=== PATIENT | female | born 1935 | race Caucasian/White ===

== ENCOUNTER 2017-02-05 08:01 | Emergency (ER) | payer MEDICARE, OTHER ==
--- NOTE | 2017-02-05 08:16 | ERPHSYRPT ---
- History of Present Illness Time Seen by Provider: 02/05/17 08:16 Source: patient Exam Limitations: no limitations Patient Subjective Stated Complaint: PT REPORTS WAS DOING YARD WORK YESTERDAY- STARTED HAVING BACK PAIN RADIATING TO CHEST-REPORTS BEGAN VOMITING Triage Nursing Assessment: PT PINK WARM ET [id number] QUESTIONS CORRECTLY-RESP NONLABORED-CAP REFILL 3 SECONDS-RIGHT RADIAL PULSE REGULAR ET STRONG Physician History: The patient is an 81-year-old female with her daughter who initially presents with the complaint of back pain that is radiating up around her chest since yesterday evening. Upon further questioning the patient was pulling weeds on Friday and then had back pain on Friday. She has a past medical history of fractures in her vertebrae from a fall. Friday evening her daughters gave her 5 mg Flexeril that helped her back pain. She quit taking the Flexeril. Last night which was Friday night she had nausea vomiting and diarrhea. She states she vomited several times and had several rounds of loose watery stools. Her back is still hurting. Her abdomen hurts in the epigastric region. Her head is hurting as well. Her past medical history is significant for hypertension, anxiety, depression, leg pain, and GERD. Her past surgical history is significant for hysterectomy and cholecystectomy. Timing/Duration: day(s) Method of Injury: bending, lifting Quality: aching Back Pain Location: T-spine, paraspinous muscles Severity of Pain-Max: moderate Severity of Pain-Current: moderate Modifying Factors: Improves With: pain medication Associated Symptoms: nausea, vomiting, other (diarrhea) Previous symptoms: different symptoms Allergies/Adverse Reactions: oxycodone Allergy (Mild, Verified 02/05/17 08:14) Hives codeine Adverse Reaction (Verified 02/05/17 08:14) morphine Adverse Reaction (Verified 02/05/17 08:14) Home Medications: Metoprolol Succinate 50 mg [Toprol Xl 50 MG] 50 mg PO DAILY 09/28/13 [ History] Omeprazole 20 MG [Prilosec 20 mg] 40 mg PO DAILY 09/28/13 [History] Acetaminophen [Tylenol Extra Strength] 1,000 mg PO Q6HPRN PRN 07/25/14 [History] Escitalopram Oxalate [Lexapro] 10 mg PO DAILY 07/25/14 [History] Cholecalciferol (Vitamin D3) [D3-2000] 5,000 iu PO DAILY 03/31/15 [History] Gabapentin 100 mg PO HS PRN 03/31/15 [History] Hx Tetanus, Diphtheria Vaccination/Date Given: Yes Hx Influenza Vaccination/Date Given: No Hx Pneumococcal Vaccination/Date Given: No Immunizations Up to Date: Yes - Review of Systems Constitutional: No Fever, No Chills Eyes: No Symptoms Ears, Nose, & Throat: No Symptoms Respiratory: No Cough, No Dyspnea Cardiac: Chest Pain Abdominal/Gastrointestinal: Abdominal Pain, Nausea, Vomiting, Diarrhea Genitourinary Symptoms: No Dysuria Musculoskeletal: Back Pain Skin: No Rash Neurological: No Dizziness, No Focal Weakness, No Sensory Changes Psychological: No Symptoms Endocrine: No Symptoms Hematologic/Lymphatic: No Symptoms Immunological/Allergic: No Symptoms All Other Systems: Reviewed and Negative - Past Medical History Pertinent Past Medical History: Yes Neurological History: Stroke ENT History: No Pertinent History Cardiac History: Arrhythmia, Hypertension Respiratory History: CHF, COPD, Pneumonia, Pulmonary Embolism Endocrine Medical History: No Pertinent History Musculoskeletal History: No Pertinent History, Osteoarthritis GI Medical History: GERD History: No Pertinent History Psycho-Social History: Depression Female Reproductive Disorders: No Pertinent History Other Medical History: 'SPOT ON LT LUNG',. prolapse heart valve. 3 BROKEN PLACES IN SPINE. esophageal hernia - Past Surgical History Past Surgical History: Yes Neuro Surgical History: No Pertinent History Cardiac: Cardiac Catheterization Respiratory: No Pertinent History Gastrointestinal: Appendectomy, Cholecystectomy Genitourinary: No Pertinent History Musculoskeletal: No Pertinent History Female Surgical History: Hysterectomy - Social History Smoking Status: Never smoker Exposure to second hand smoke: No Drug Use: none Patient Lives Alone: No Significant Family History: heart disease, hypertension - Nursing Vital Signs Nursing Vital Signs: Initial Vital Signs Temperature 99.4 F Temperature Source Oral Pulse Rate [] 95 Pulse Rate 86 Respiratory Rate 16 Blood Pressure [] 108/47 Pain Intensity 4 - Physical Exam General Appearance: moderate distress Eye Exam: PERRL/EOMI, eyes nml inspection Ears, Nose, Throat Exam: normal ENT inspection Neck Exam: normal inspection, non-tender, supple, full range of motion, No meningismus, No midline tenderness Respiratory Exam: normal breath sounds, chest tenderness, lungs clear, No respiratory distress Cardiovascular Exam: regular rate/rhythm, normal heart sounds Gastrointestinal Exam: tenderness Pelvic Exam: not done Rectal Exam: not done Back Exam: muscle spasm Extremity Exam: normal inspection, normal range of motion, No calf tenderness, No pedal edema Neurologic Exam: alert, oriented x 3, cooperative, veterinary manager II-XII nml as tested, normal mood/affect, nml station & gait, sensation nml, No motor deficits Skin Exam: normal color, warm, dry, No rash SpO2 Interpretation: normal SpO2: 94 Oxygen Delivery: Room Air - Course EKG Interpreted by Me: RATE, Sinus Rhythm, NORMAL AXIS, NORMAL ST-T - Radiology Exams Chest X-ray Interpretation: Teleradiologist Report, Negative (No acute, large hiatal hernia per DR Alan) Abdomen X-ray Interpretation: Teleradiologist Report, Negative (unremarkable bowel gas pattern per Dr Alan) Ordered Tests: Active Orders 24 hr Category Date Time Status EKG-ER Only STAT Care 02/05/17 08:37 Active IV Insertion STAT Care 02/05/17 08:37 Active CHEST 2 VIEWS (PA AND LAT) Stat Exams 02/05/17 08:38 Completed KUB Stat Exams 02/05/17 08:38 Completed CBC W DIFF Stat Lab 02/05/17 08:20 Completed CMP Stat Lab 02/05/17 08:20 Completed LIPASE Stat Lab 02/05/17 08:20 Completed TROPONIN Stat Lab 02/05/17 08:20 Completed UA W/ MICROSCOPIC Stat Lab 02/05/17 12:00 Results Medication Summary Discontinued Medications Generic Name Dose Route Start Last Admin Trade Name Freq PRN Reason Stop Dose Admin Diazepam 5 mg 02/05/17 08:47 02/05/17 08:53 Valium 10 Mg/2 Ml Syringe IV 02/05/17 08:48 5 mg STAT ONE Administration Diazepam Confirm 02/05/17 08:50 Valium 10 Mg/2 Ml Syringe Administered 02/05/17 08:51 Dose 10 mg .ROUTE .STK-MED ONE Sodium Chloride 1,000 mls @ 999 mls/hr 02/05/17 08:37 02/05/17 08:48 Sodium Chloride 0.9% 1000 Ml IV 02/05/17 09:37 999 mls/hr .Q1H1M STA Administration Sodium Chloride Confirm 02/05/17 08:45 Sodium Chloride 0.9% 1000 Ml Administered 02/05/17 08:46 Dose 1,000 mls @ ud .ROUTE .STK-MED ONE Nalbuphine HCl 10 mg 02/05/17 10:13 02/05/17 10:28 Nubain 10 Mg/Ml IV 02/05/17 10:14 10 mg STAT ONE Administration Nalbuphine HCl Confirm 02/05/17 10:24 Nubain 10 Mg/Ml Administered 02/05/17 10:25 Dose 10 mg .ROUTE .STK-MED ONE Ondansetron HCl 4 mg 02/05/17 08:37 02/05/17 08:48 Zofran 4 Mg/2 Ml Vial IV 02/05/17 08:38 4 mg STAT ONE Administration Ondansetron HCl Confirm 02/05/17 08:45 Zofran 4 Mg/2 Ml Vial Administered 02/05/17 08:46 Dose 4 mg .ROUTE .STK-MED ONE Lab/Rad Data: Laboratory Result Diagrams 02/05/17 08:20 02/05/17 08:20 Laboratory Results 02/05/17 02/05/17 02/05/17 Range/Units 12:00 08:20 08:20 WBC 10.0 (4.0-10.5) K/mm3 RBC 3.47 L (4.1-5.4) M/mm3 Hgb 10.8 L (12.0-16.0) gm/dl Hct 33.9 L (35-47) % MCV 97.7 (78-100) fl MCH 31.1 (26-32) pg MCHC 31.9 L (32-36) g/dl RDW 14.0 (11.5-14.0) % Plt Count 283 (150-450) K/mm3 MPV 9.2 (6-9.5) fl Gran % 64.6 (36.0-66.0) % Lymphocytes % 20.5 L (24.0-44.0) % Monocytes % 13.9 H (0.0-12.0) % Eosinophils % 0.9 (0.00-5.0) % Basophils % 0.1 (0.0-0.4) % Basophils # 0.01 (0-0.4) Sodium 138 (136-145) mEq/L Potassium 4.2 (3.5-5.1) mEq/L Chloride 104 (98-107) mEq/L Carbon Dioxide 26.0 (21-32) mEq/L Anion Gap 12.4 (5-15) MEQ/L BUN 18 (9-20) mg/dL Creatinine 1.32 H (0.55-1.30) mg/dl Estimated GFR 41 ML/MIN Glucose 129 H (70-110) MG/DL Calcium 9.5 (8.5-10.1) mg/dL Total Bilirubin 0.60 (0.2-1.0) mg/dL AST 32 (15-37) U/L ALT 28 (12-78) U/L Alkaline Phosphatase 90 (46-116) U/L Troponin I < 0.017 (0.000-0.056) ng/ml Serum Total Protein 7.5 (6.4-8.2) gm/dL Albumin 3.4 (3.4-5.0) g/dL Lipase 151 (73-393) U/L Ur Collection Type CLEAN CATCH Urine Color YELLOW (YELLOW) Urine Appearance CLEAR (CLEAR) Urine pH 5.5 (5-6) Ur Specific [place] 1.020 (1.005-1.025) Urine Protein NEGATIVE (Negative) Urine Glucose (UA) NEGATIVE (NEGATIVE) mg/dL Urine Ketones NEGATIVE (NEGATIVE) Urine Nitrite NEGATIVE (NEGATIVE) Urine Bilirubin NEGATIVE (NEGATIVE) Urine Urobilinogen 0.2 (0-1) mg/dL Urine WBC (Auto) NEGATIVE (NEGATIVE) Urine RBC (Auto) TRACE-INTACT (0-5) Gume/ul Specimen Received 0545 1200 - Progress Progress: improved Progress Note: 02/05/17 11:18 After valium 5 mg and nubain 10 mg IV, pt is feeling better. Counseled pt/family regarding: lab results, diagnosis, rad results - Departure Time of Disposition: 12:31 Departure Disposition: Home Clinical Impression: Back pain, Muscle spasm Condition: Stable Critical Care Time: No Additional Instructions: You have back and chest pain that is result of straining your back muscles and chest muscles from gardening a few days ago You were given Valium 5 mg and Nubain 10 mg IV in the ER. I want you to rest for a couple of days. Take Flexeril 5-10 mg every 8 hours as needed for pain. Follow-up tomorrow with your primary care doctor if the condition has not improved significantly.
[2017-02-05] MEDS ORDERED: Zofran 4 MG/2 ML VIAL IV ONE (08:37)
[2017-02-05] MEDS ORDERED: Sodium Chloride 0.9% 1000 ML 1,000 ML IV STA (08:37)
[2017-02-05] MEDS ORDERED: Zofran 4 MG/2 ML VIAL ONE (08:45)
[2017-02-05] MEDS ORDERED: Sodium Chloride 0.9% 1000 ML 1,000 ML ONE (08:45)
[2017-02-05] MEDS ORDERED: VALIUM 10 MG/2 ML SYRINGE IV ONE (08:47)
[2017-02-05 08:48] LABS: BASOPHIL % 0.1 % (0.0-0.4); Eosinophil % 0.9 % (0.00-5.0); Granulocytes % 64.6 % (36.0-66.0); Lymphocytes % 20.5 % (24.0-44.0); Mean Cell Volume 97.7 fl (78-100); Mean Corpuscular Hemoglobin 31.1 pg (26-32); Mean Platelet Volume 9.2 fl (6-9.5); Monocytes % 13.9 % (0.0-12.0); Platelet Count 283 K/mm3 (150-450); Red Blood Count 3.47 M/mm3 (4.1-5.4)
[2017-02-05] MEDS ORDERED: VALIUM 10 MG/2 ML SYRINGE ONE (08:50)
[2017-02-05 09:01] LABS: ALBUMIN 3.4 g/dL (3.4-5.0); ALKALINE PHOSPHATASE 90 U/L (46-116); ANION GAP 12.4 MEQ/L (5-15); BLOOD UREA NITROGEN 18 mg/dL (9-20); CHLORIDE 104 mEq/L (98-107); Glucose 129 MG/DL (70-110); LIPASE 151 U/L (73-393); Potassium 4.2 mEq/L (3.5-5.1); SGOT/AST 32 U/L (15-37); SGPT/ALT 28 U/L (12-78); SODIUM 138 mEq/L (136-145); TROPONIN < 0.017 ng/ml (0.000-0.056); Total Protein 7.5 gm/dL (6.4-8.2)
--- NOTE | 2017-02-05 09:58 | XRAY ---
Exam: AP upright and lateral sitting chest films on the cart from 02/05/2017. Comparison: Two-view chest from 12/09/2015. Indication: Chest pain, nausea, vomiting, diarrhea, history of prior cholecystectomy and hysterectomy. Findings: Upright AP and lateral images were obtained. The transverse heart size appears slightly enlarged. Atherosclerotic vascular calcification of the aortic knob and mild tortuosity of the thoracic aorta are seen. I note no significant central vascular congestion or pleural effusions. I see some chronic pleural-parenchymal scarring within the lower two thirds of the right lung and at the lateral left lung base. A large retrocardiac hiatal hernia is seen. There is no pneumothorax. No definite acute air space infiltrates are seen. The bones are demineralized. There is a moderate upper thoracic anterior wedge fracture deformity which I believe is unchanged. There is also a moderate anterior wedge compression fracture deformity near the thoracolumbar junction on the lateral radiograph which may be slightly more pronounced as compared to 12/09/2015. No other new compression fracture deformities are seen. Some arthritic changes are seen within both shoulders. Impression: 1. Large retrocardiac hiatal hernia. This is larger than that seen on 12/09/2015. 2. Slight cardiomegaly without evidence of acute cardiac decompensation/i.e. CHF. 3. Mild chronic pleural-parenchymal scarring within the lower two thirds of the right lung and lateral left lung base. No acute airspace infiltrates are seen. 4. Significant bone demineralization with at least a couple compression fracture deformities, as noted above.
--- NOTE | 2017-02-05 10:01 | XRAY ---
Exam: Supine film of the abdomen from 02/05/2017. Comparison: None. Indication: Chest pain, nausea and vomiting, diarrhea, history of prior cholecystectomy and hysterectomy. Findings: 2 supine images of the abdomen were obtained. The bowel gas pattern is unremarkable suggesting neither bowel obstruction or significant ileus. No hepatosplenomegaly is seen. Surgical clips consistent with prior cholecystectomy are seen within the right upper quadrant. The psoas muscle margins are well seen bilaterally. Some scattered small calcified granulomas are seen within the lower pelvis, more numerous on the right than left. There are also a couple small round calcifications just above the right sacroiliac joint. These likely represent calcified granulomas or phleboliths. Some minimal vascular calcification is seen within the mid to distal abdominal aorta overlying the upper left margin of the L4 vertebral body. A definite aneurysm is not seen. Bone demineralization and a slight rotary levoscoliosis centered at L3-L4 is seen. I believe there is a transitional vertebra at the lumbosacral junction with pseudoarticulation on the left. Mild osteoarthritic spurring of the right acetabulum is seen. Hip joint spaces reveal only minimal narrowing. Several small calcium rimmed densities are seen superior to the greater trochanter on the left which may reflect granulomas or phleboliths. Impression: 1. Unremarkable bowel gas pattern. There is no evidence of bowel obstruction or significant ileus. 2. Status post cholecystectomy. 3. Other incidental findings as discussed above.
[2017-02-05] MEDS ORDERED: Nubain 10 MG/ML IV ONE (10:13)
[2017-02-05] MEDS ORDERED: Nubain 10 MG/ML ONE (10:24)
[2017-02-05 12:10] VITALS: BP 108/47; PULSE 86
[2017-02-05 12:11] LABS: COMPLETE URINE MICROSCOPIC? YES; Collection Type CLEAN CATCH; Ph 5.5 (5-6)
[2017-02-05 12:34] VITALS: O2SAT 94
[2017-02-05 12:59] LABS: Bacteria RARE /HPF (NEGATIVE); Epithelial Cells FEW /HPF (FEW); WBC 0-2 /HPF (0-5); Yeast FEW /HPF (NEGATIVE)
[2017-02-05 15:51] LABS: ADD URINE CULTURE? NO (NO)
== END 2017-02-05 12:53 | disposition home or self-care (01) ==
LOC: ED 08:01
DX: M54.9 Dorsalgia, unspecified (principal); M62.830 Muscle spasm of back; Y93.H2 Activity, gardening and landscaping; R10.13 Epigastric pain; R11.2 Nausea with vomiting, unspecified; R19.7 Diarrhea, unspecified; I10 Essential (primary) hypertension; I50.9 Heart failure, unspecified; J44.9 Chronic obstructive pulmonary disease, unspecified; Z86.711 Personal history of pulmonary embolism
CPT/HCPCS: 36415; 71020; 74000; 80053; 81000; 83690; 84484; 85025; 93005; 93041; 96374; 96375; 99284; J2300; J2405; J3360

== ENCOUNTER 2018-05-27 12:05 | Observation (INO) | payer MEDICARE, OTHER ==
[2018-05-27 13:54] LABS: BASOPHIL % 0.2 % (0.0-0.4); Basophil (Absolute #) 0.01 (0-0.4); Eosinophil % 1.2 % (0.00-5.0); Eosinophil (Absolute #) 0.08 (0-0.5); Granulocytes % 57.1 % (36.0-66.0); Hematocrit 33.2 % (35-47); Hemoglobin 10.6 gm/dl (12.0-16.0); Lymphocyte (Absolute #) 2.12 (1.0-4.6); Lymphocytes % 32.8 % (24.0-44.0); Mean Corpuscular Hemoglobin 31.9 pg (26-32); Mean Corpuscular Hgb Concent. 31.9 g/dl (32-36); Mean Platelet Volume 9.2 fl (6-9.5); Monocyte (Absolute #) 0.56 (0.0-1.3); Monocytes % 8.7 % (0.0-12.0); Platelet Count 248 K/mm3 (150-450); Red Blood Count 3.32 M/mm3 (4.1-5.4); Red Cell Distribution Width 13.6 % (11.5-14.0); White Blood Count 6.5 K/mm3 (4.0-10.5)
[2018-05-27] MEDS: Sodium Chloride 0.9% 1000 ML 1,000 ML IV SCH (13:54)
--- NOTE | 2018-05-27 14:06 | XRAY ---
Indication: Abdomen/pelvic pain. Multiple contiguous axial images obtained through the abdomen and pelvis without contrast as ordered. Comparison: None Lung bases demonstrates mild peripheral fibrosis/scarring. No infiltrate or effusion. Heart is not enlarged. Large hiatal hernia with partial intrathoracic stomach. Noncontrasted stomach and bowel loops appear nonobstructed. Previous reported appendectomy, hysterectomy, and cholecystectomy. Scattered colonic diverticulosis, greatest sigmoid colon. No free fluid/air. Remaining liver, pancreas, spleen, adrenal glands, kidneys, ureters, and bladder appear unremarkable for noncontrast exam. Mild scattered aortoiliac calcifications without AAA. Osseous structures intact with osteopenia, T11 vertebral hemangioma, and remote appearing T12 superior endplate fracture with approximately 25% height loss. Incidental 1.5 cm right S2 perineural cyst. No ventral or inguinal hernias. Several bilateral gluteal calcified injection granulomas. Impression: 1. Large hiatal hernia with partial intrathoracic stomach. 2. Colonic diverticulosis without diverticulitis. 3. No acute intra-abdominal/pelvic abnormalities on this noncontrast exam. 4. Chronic bony findings as detailed. CT DI 13.75
[2018-05-27 14:14] LABS: ALBUMIN 4.4 g/dL (3.5-5.0); ANION GAP 13.8 MEQ/L (5-15); BILIRUBIN,TOTAL 0.5 mg/dL (0.2-1.3); Calcium 9.9 mg/dL (8.4-10.2); Creatinine 1 1.41 mg/dL (0.52-1.04); Potassium 4.4 mmol/L (3.5-5.1); Total Protein 7.2 g/dL (6.3-8.2)
[2018-05-27] MEDS ORDERED: TYLENOL EXTRA STRENGTH 500 MG PO PRN (15:17)
[2018-05-27] MEDS ORDERED: Neurontin 100 MG PO PRN (15:17)
[2018-05-27] MEDS: Toprol Xl 50 MG PO SCH (18:22)
[2018-05-27] MEDS: Protonix 40MG Tablet PO SCH (18:22)
[2018-05-27] MEDS: VITAMIN D PO SCH (18:22)
[2018-05-27] MEDS: ULTRAM 50 MG PO PRN (18:23)
[2018-05-27 18:33] LABS: Appearance CLEAR (CLEAR)
[2018-05-27 18:34] LABS: Bilirubin NEGATIVE (NEGATIVE); Blood NEGATIVE Ery/ul (0-5); Glucose NEGATIVE (NEGATIVE); Ketones NEGATIVE (NEGATIVE); Leukocyte Esterase NEGATIVE (NEGATIVE); Nitrite NEGATIVE (NEGATIVE); Protein,Urine Dip NEGATIVE (Negative); Specific Gravity 1.015 (1.005-1.025); Urobilinogen NORMAL mg/dL (0-1)
[2018-05-28] MEDS: ULTRAM 50 MG PO PRN ×2 (00:38→10:56)
[2018-05-28] MEDS: Toprol Xl 50 MG PO SCH (08:20)
[2018-05-28] MEDS: Protonix 40MG Tablet PO SCH (08:20)
[2018-05-28] MEDS: VITAMIN D PO SCH (08:20)
[2018-05-28] MEDS: Sodium Chloride 0.9% 1000 ML 1,000 ML IV SCH (09:44)
[2018-05-28] MEDS ORDERED: CHOLECALCIFEROL PO SCH (10:00)
[2018-05-28] MEDS ORDERED: NON-FORMULARY ITEM (Omeprazole 20 Mg [Prilosec 20 Mg] 40 MG) PO SCH (10:00)
--- NOTE | 2018-05-28 12:19 | PCM.NOTE ---
Date and Time: 05/28/181216 Subjective Assessment: c/o epigastric pain - Review of Systems Constitutional: No Fever, No Chills Eyes: No Symptoms Ears, Nose, & Throat: No Symptoms Respiratory: No Cough, No Short Of Breath Cardiac: No Chest Pain, No Edema, No Syncope Abdominal/Gastrointestinal: No Abdominal Pain, No Nausea, No Vomiting, No Diarrhea Genitourinary Symptoms: No Dysuria Musculoskeletal: No Back Pain, No Neck Pain Skin: No Rash Neurological: No Dizziness, No Focal Weakness, No Sensory Changes Psychological: No Symptoms Endocrine: No Symptoms Hematologic/Lymphatic: No Symptoms Immunological/Allergic: No Symptoms Objective Exam General Appearance: no apparent distress, alert Neurologic Exam: alert, oriented x 3, cooperative, normal mood/affect, nml cerebellar function, sensation nml, No motor deficits Skin Exam: normal color, warm, dry Eye Exam: PERRL, EOMI, eyes nml inspection Ears, Nose, Throat Exam: normal ENT inspection, pharynx normal, moist mucous membranes Neck Exam: normal inspection, non-tender, supple, full range of motion Respiratory Exam: normal breath sounds, lungs clear, No respiratory distress Cardiovascular Exam: regular rate/rhythm, normal heart sounds Gastrointestinal/Abdomen Exam: soft, No tenderness, No mass Extremity Exam: normal inspection, normal range of motion Back Exam: normal inspection, normal range of motion, No CVA tenderness, No vertebral tenderness Pelvic Exam: deferred Rectal Exam: deferred OBJECTIVE DATA Vital Signs: Vital Signs - 24 hr Temp Pulse Resp BP Pulse Ox 05/28/18 12:12 98.7 F 60 18 125/63 96 05/28/18 08:00 98.4 F 66 18 124/90 95 05/28/18 04:23 98.2 F 66 16 111/73 98 05/28/18 00:09 98.4 F 62 16 104/62 96 05/27/18 20:20 98.4 F 62 18 147/70 96 05/27/18 16:25 98.1 F 79 18 139/81 97 05/27/18 12:59 97.8 F 80 18 148/85 97 Pain Assessment - Last Documented Pain Intensity 5 Pain Scale Used 0-10 Pain Scale Intake and Output: Intake & Output 05/26/18 05/27/18 05/28/18 05/29/18 11:59 11:59 11:59 11:59 Intake Total 3193 Output Total 300 Balance 2893 Weight 54.9 kg Lab Results: Lab Results-Last 24 Hours 05/27/18 05/27/18 05/27/18 Range/Units 13:33 13:33 13:33 WBC 6.5 (4.0-10.5) K/mm3 RBC 3.32 L (4.1-5.4) M/mm3 Hgb 10.6 L (12.0-16.0) gm/dl Hct 33.2 L (35-47) % MCV 100.0 (78-100) fl MCH 31.9 (26-32) pg MCHC 31.9 L (32-36) g/dl RDW 13.6 (11.5-14.0) % Plt Count 248 (150-450) K/mm3 MPV 9.2 (6-9.5) fl Gran % 57.1 (36.0-66.0) % Eos # (Auto) 0.08 (0-0.5) Absolute Lymphs (auto) 2.12 (1.0-4.6) Absolute Monos (auto) 0.56 (0.0-1.3) Lymphocytes % 32.8 (24.0-44.0) % Monocytes % 8.7 (0.0-12.0) % Eosinophils % 1.2 (0.00-5.0) % Basophils % 0.2 (0.0-0.4) % Absolute Granulocytes 3.70 (1.4-6.9) Basophils # 0.01 (0-0.4) Sodium 143 (137-145) mmol/L Potassium 4.4 (3.5-5.1) mmol/L Chloride 109 H (98-107) mmol/L Carbon Dioxide 25 (22-30) mmol/L Anion Gap 13.8 (5-15) MEQ/L BUN 28 H (7-17) mg/dL Creatinine 1.41 H (0.52-1.04) mg/dL Estimated GFR 37.8 ML/MIN Glucose 98 (74-106) mg/dL Lactic Acid (0.4-2.0) Calcium 9.9 (8.4-10.2) mg/dL Total Bilirubin 0.50 (0.2-1.3) mg/dL AST 23 (14-36) U/L ALT 12 (0-35) U/L Alkaline Phosphatase 70 (38-126) U/L Troponin I < 0.012 (0.000-0.034) ng/mL Serum Total Protein 7.2 (6.3-8.2) g/dL Albumin 4.4 (3.5-5.0) g/dL Amylase 56 (30-110) U/L Lipase 167 (23-300) U/L Ur Collection Type Urine Color (YELLOW) Urine Appearance (CLEAR) Urine pH (5-6) Ur Specific [place] (1.005-1.025) Urine Protein (Negative) Urine Ketones (NEGATIVE) Urine Blood (0-5) Gume/ul Urine Nitrite (NEGATIVE) Urine Bilirubin (NEGATIVE) Urine Urobilinogen (0-1) mg/dL Ur Leukocyte Esterase (NEGATIVE) Urine Glucose (NEGATIVE) mg/dL 05/27/18 05/27/18 Range/Units 13:35 18:30 WBC (4.0-10.5) K/mm3 RBC (4.1-5.4) M/mm3 Hgb (12.0-16.0) gm/dl Hct (35-47) % MCV (78-100) fl MCH (26-32) pg MCHC (32-36) g/dl RDW (11.5-14.0) % Plt Count (150-450) K/mm3 MPV (6-9.5) fl Gran % (36.0-66.0) % Eos # (Auto) (0-0.5) Absolute Lymphs (auto) (1.0-4.6) Absolute Monos (auto) (0.0-1.3) Lymphocytes % (24.0-44.0) % Monocytes % (0.0-12.0) % Eosinophils % (0.00-5.0) % Basophils % (0.0-0.4) % Absolute Granulocytes (1.4-6.9) Basophils # (0-0.4) Sodium (137-145) mmol/L Potassium (3.5-5.1) mmol/L Chloride (98-107) mmol/L Carbon Dioxide (22-30) mmol/L Anion Gap (5-15) MEQ/L BUN (7-17) mg/dL Creatinine (0.52-1.04) mg/dL Estimated GFR ML/MIN Glucose (74-106) mg/dL Lactic Acid 1.2 (0.4-2.0) Calcium (8.4-10.2) mg/dL Total Bilirubin (0.2-1.3) mg/dL AST (14-36) U/L ALT (0-35) U/L Alkaline Phosphatase (38-126) U/L Troponin I (0.000-0.034) ng/mL Serum Total Protein (6.3-8.2) g/dL Albumin (3.5-5.0) g/dL Amylase (30-110) U/L Lipase (23-300) U/L Ur Collection Type CLEAN CATCH Urine Color YELLOW (YELLOW) Urine Appearance CLEAR (CLEAR) Urine pH 6.0 (5-6) Ur Specific [place] 1.015 (1.005-1.025) Urine Protein NEGATIVE (Negative) Urine Ketones NEGATIVE (NEGATIVE) Urine Blood NEGATIVE (0-5) Gume/ul Urine Nitrite NEGATIVE (NEGATIVE) Urine Bilirubin NEGATIVE (NEGATIVE) Urine Urobilinogen NORMAL (0-1) mg/dL Ur Leukocyte Esterase NEGATIVE (NEGATIVE) Urine Glucose NEGATIVE (NEGATIVE) mg/dL Radiology Exams: Radiology Procedures Category Date Time Status ABDOMEN AND PELVIS W/0 CONTRAS [CT] Stat Exams 05/27/18 12:58 Completed Assessment/Plan (1) Hiatal hernia with gastroesophageal reflux Current Visit: Yes Status: Acute Assessment & Plan: Last Vital Signs Temp 98.7 F 05/28/18 12:12 Pulse 60 05/28/18 12:12 Resp 18 05/28/18 12:12 BP 125/63 05/28/18 12:12 Pulse Ox 96 05/28/18 12:12 Allergies oxycodone Allergy (Mild, Verified 02/05/17 08:14) Hives codeine Adverse Reaction (Verified 02/05/17 08:14) morphine Adverse Reaction (Verified 02/05/17 08:14) Active Medications Acetaminophen (Tylenol Extra Strength 500 Mg) 1,000 mg PO Q6HPRN PRN PRN Reason: MODERATE PAIN Stop: 06/26/18 15:16 Cholecalciferol (Vitamin D) 5,000 unit PO DAILY SARAY Stop: 06/26/18 15:29 Last Admin: 05/28/18 08:20 Dose: 5,000 unit Gabapentin (Neurontin 100 Mg) 100 mg PO HS PRN PRN Reason: leg pain Stop: 06/26/18 15:16 Sodium Chloride (Sodium Chloride 0.9% 1000 Ml) 1,000 mls @ 50 mls/hr IV .Q20H SARAY Stop: 06/26/18 12:59 Last Admin: 05/28/18 09:44 Dose: 50 mls/hr Metoprolol Succinate (Toprol Xl 50 Mg) 50 mg PO DAILY SARAY Stop: 06/26/18 15:29 Last Admin: 05/28/18 08:20 Dose: 50 mg Pantoprazole Sodium (Protonix 40mg Tablet) 40 mg PO DAILY SARAY Stop: 06/26/18 15:29 Last Admin: 05/28/18 08:20 Dose: 40 mg Tramadol HCl (Ultram 50 Mg) 50 mg PO QID PRN PRN PRN Reason: PAIN Stop: 06/26/18 16:36 Last Admin: 05/28/18 10:56 Dose: 50 mg Intake & Output 05/28/18 05/29/18 11:59 11:59 Intake Total 3193 Output Total 300 Balance 2893 Weight 54.9 kg Orders 05/27/18 12:59 Up Ad Mary TOLERATED 05/27/18 13:00 NaCl 0.9% 1000 ml [Sodium Chloride 0.9% 1000 ML] 1,000 ml IV 50 mls/hr 05/27/18 13:19 Place in Observation ROUTINE 05/27/18 15:12 Code Status Change Order ROUTINE 05/27/18 15:15 Miscellaneous Nursing Order ROUTINE 05/27/18 15:17 Acetaminophen 500 mg [Tylenol Extra Strength 500 mg] 1,000 mg PO Q6HPRN PRN Gabapentin 100 mg [Neurontin 100 MG] 100 mg PO HS PRN 05/27/18 15:30 Cholecalciferol (Vitamin D3) [Vitamin D] 5,000 unit PO DAILY Metoprolol Succinate 50 mg [Toprol Xl 50 MG] 50 mg PO DAILY PANTOPRAZOLE 40 mg Tablet [Protonix 40MG Tablet] 40 mg PO DAILY 05/27/18 16:37 Tramadol HCl 50 mg [Ultram 50 mg] 50 mg PO QID PRN PRN 05/28/18 Breakfast Regular Diet Lab Tests 05/27/18 05/27/18 05/27/18 13:33 13:33 13:33 WBC 6.5 RBC 3.32 L Hgb 10.6 L Hct 33.2 L MCV 100.0 MCH 31.9 MCHC 31.9 L RDW 13.6 Plt Count 248 MPV 9.2 Gran % 57.1 Eos # (Auto) 0.08 Absolute Lymphs (auto) 2.12 Absolute Monos (auto) 0.56 Lymphocytes % 32.8 Monocytes % 8.7 Eosinophils % 1.2 Basophils % 0.2 Absolute Granulocytes 3.70 Basophils # 0.01 Sodium 143 Potassium 4.4 Chloride 109 H Carbon Dioxide 25 Anion Gap 13.8 BUN 28 H Creatinine 1.41 H Estimated GFR 37.8 Glucose 98 Lactic Acid Calcium 9.9 Total Bilirubin 0.50 AST 23 ALT 12 Alkaline Phosphatase 70 Troponin I < 0.012 Serum Total Protein 7.2 Albumin 4.4 Amylase 56 Lipase 167 Ur Collection Type Urine Color Urine Appearance Urine pH Ur Specific [place] Urine Protein Urine Ketones Urine Blood Urine Nitrite Urine Bilirubin Urine Urobilinogen Ur Leukocyte Esterase Urine Glucose 05/27/18 05/27/18 13:35 18:30 WBC RBC Hgb Hct MCV MCH MCHC RDW Plt Count MPV Gran % Eos # (Auto) Absolute Lymphs (auto) Absolute Monos (auto) Lymphocytes % Monocytes % Eosinophils % Basophils % Absolute Granulocytes Basophils # Sodium Potassium Chloride Carbon Dioxide Anion Gap BUN Creatinine Estimated GFR Glucose Lactic Acid 1.2 Calcium Total Bilirubin AST ALT Alkaline Phosphatase Troponin I Serum Total Protein Albumin Amylase Lipase Ur Collection Type CLEAN CATCH Urine Color YELLOW Urine Appearance CLEAR Urine pH 6.0 Ur Specific [place] 1.015 Urine Protein NEGATIVE Urine Ketones NEGATIVE Urine Blood NEGATIVE Urine Nitrite NEGATIVE Urine Bilirubin NEGATIVE Urine Urobilinogen NORMAL Ur Leukocyte Esterase NEGATIVE Urine Glucose NEGATIVE Code(s): K21.9 - GASTRO-ESOPHAGEAL REFLUX DISEASE WITHOUT ESOPHAGITIS; K44.9 - DIAPHRAGMATIC HERNIA WITHOUT OBSTRUCTION OR GANGRENE (2) Diverticulosis Current Visit: Yes Status: Acute Code(s): K57.90 - DVRTCLOS OF INTEST, PART UNSP, W/O PERF OR ABSCESS W/O BLEED (3) Hypertension Current Visit: Yes Status: Chronic Qualifiers: Hypertension type: essential hypertension Qualified Code(s): I10 - Essential (primary) hypertension Code(s): I10 - ESSENTIAL (PRIMARY) HYPERTENSION
[2018-05-28] MEDS: Pepcid 20 MG VIAL IV SCH ×2 (13:01→21:21)
[2018-05-28] MEDS ORDERED: Sodium Chloride 0.9% 10 ML FLUSH Syringe IV SCH (14:00)
[2018-05-28] MEDS ORDERED: Zofran 4 MG/2 ML VIAL IV PRN (17:51)
[2018-05-29] MEDS: VITAMIN D PO SCH (09:13)
[2018-05-29] MEDS: Pepcid 20 MG VIAL IV SCH (09:13)
[2018-05-29] MEDS: Toprol Xl 50 MG PO SCH (09:13)
[2018-05-29] MEDS ORDERED: PROTONIX 40 MG IV IV SCH (10:00)
--- NOTE | 2018-05-29 11:58 | PCM.DS ---
Discharge Summary Date of Admission: 05/27/18 12:33 Admitting Physician: RACHEL MARTINEZ Primary Care Provider: RACHEL MARTINEZ Allergies Allergies oxycodone Allergy (Mild, Verified 02/05/17 08:14) Hives codeine Adverse Reaction (Verified 02/05/17 08:14) morphine Adverse Reaction (Verified 02/05/17 08:14) Hospital Summary - Hospital Course Hospital Course: Last Vital Signs Temp 97.7 F 05/29/18 08:19 Pulse 87 05/29/18 08:19 Resp 18 05/29/18 08:19 BP 101/63 05/29/18 08:19 Pulse Ox 97 05/29/18 08:19 Allergies oxycodone Allergy (Mild, Verified 02/05/17 08:14) Hives codeine Adverse Reaction (Verified 02/05/17 08:14) morphine Adverse Reaction (Verified 02/05/17 08:14) Active Medications Acetaminophen (Tylenol Extra Strength 500 Mg) 1,000 mg PO Q6HPRN PRN PRN Reason: MODERATE PAIN Stop: 06/26/18 15:16 Cholecalciferol (Vitamin D) 5,000 unit PO DAILY [facility] Stop: 06/26/18 15:29 Last Admin: 05/29/18 09:13 Dose: 5,000 unit Famotidine (Pepcid 20 Mg Vial) 20 mg IV BID [facility] Stop: 06/27/18 12:50 Last Admin: 05/29/18 09:13 Dose: 20 mg Gabapentin (Neurontin 100 Mg) 100 mg PO HS PRN PRN Reason: leg pain Stop: 06/26/18 15:16 Metoprolol Succinate (Toprol Xl 50 Mg) 50 mg PO DAILY [facility] [place] Stop: 06/26/18 15:29 Last Admin: 05/29/18 09:13 Dose: 50 mg Ondansetron HCl (Zofran 4 Mg/2 Ml Vial) 4 mg IV Q6H PRN PRN PRN Reason: NAUSEA/VOMITING Stop: 06/27/18 17:50 Last Admin: 05/28/18 19:05 Dose: 4 mg Pantoprazole Sodium (Protonix 40 Mg Iv) 40 mg IV Q24H SARAY Stop: 06/28/18 09:59 Last Admin: 05/29/18 09:20 Dose: Not Given Sodium Chloride (Sodium Chloride 0.9% 10 Ml Flush Syringe) 10 ml IV Q8HT SARAY Stop: 06/27/18 13:59 Tramadol HCl (Ultram 50 Mg) 50 mg PO QID PRN PRN PRN Reason: PAIN Stop: 06/26/18 16:36 Last Admin: 05/28/18 10:56 Dose: 50 mg Intake & Output 05/28/18 05/29/18 11:59 11:59 Intake Total 3193 1634 Output Total 300 870 Balance 2893 764 Weight 54.9 kg Orders 05/28/18 12:51 Famotidine 20 mg Vial [Pepcid 20 MG VIAL] 20 mg IV BID 05/28/18 14:00 NaCl 0.9% 10 ML FLUSH [Sodium Chloride 0.9% 10 ML FLUSH Syringe] 10 ml IV Q8HT 05/28/18 17:51 Ondansetron HCl 4 mg/2 ml [Zofran 4 MG/2 ML VIAL] 4 mg IV Q6H PRN PRN 05/29/18 10:00 Pantoprazole 40 mg [Protonix 40 mg IV] 40 mg IV Q24H - Vitals & Intake/Output Vital Signs: Vital Signs Temperature 97.7 F 05/29/18 08:19 Pulse Rate 87 05/29/18 08:19 Respiratory Rate 18 05/29/18 08:19 Blood Pressure 101/63 05/29/18 08:19 O2 Sat by Pulse Oximetry 97 05/29/18 08:19 Intake & Output: Intake & Output 05/26/18 05/27/18 05/28/18 05/29/18 11:59 11:59 11:59 11:59 Intake Total 3193 1634 Output Total 300 870 Balance 2893 764 Weight 54.9 kg - Lab Result Diagrams: 05/27/18 13:33 05/27/18 13:33 - Radiology Exams Ordered Rad Exams-Entire Visit: Radiology Procedures Category Date Time Status ABDOMEN AND PELVIS W/0 CONTRAS [CT] Stat Exams 05/27/18 12:58 Completed Discharge Exam General Appearance: no apparent distress, alert Neurologic Exam: alert, oriented x 3, cooperative, normal mood/affect, nml cerebellar function, sensation nml, No motor deficits Skin Exam: normal color, warm, dry Eye Exam: PERRL, EOMI, eyes nml inspection Ears, Nose, Throat Exam: normal ENT inspection, pharynx normal, moist mucous membranes Neck Exam: normal inspection, non-tender, supple, full range of motion Respiratory Exam: normal breath sounds, lungs clear, No respiratory distress Cardiovascular Exam: regular rate/rhythm, normal heart sounds Gastrointestinal/Abdomen Exam: soft, No tenderness, No mass Extremity Exam: normal inspection, normal range of motion Back Exam: normal inspection, normal range of motion, No CVA tenderness, No vertebral tenderness Pelvic Exam: deferred Rectal Exam: deferred Final Diagnosis/Problem List - Final Discharge Diagnosis/Problem (1) Hiatal hernia with gastroesophageal reflux Current Visit: Yes Status: Acute (2) Diverticulosis Current Visit: Yes Status: Chronic (3) Hypertension Current Visit: Yes Status: Chronic - Discharge Disposition: Home, Self-Care Condition: Stable Prescriptions: Continue Omeprazole 20 MG [Prilosec 20 mg] 40 mg PO DAILY Acetaminophen [Tylenol Extra Strength] 1,000 mg PO Q6HPRN PRN PRN Reason: Moderate Pain Cholecalciferol (Vitamin D3) [D3-2000] 5,000 iu PO DAILY Gabapentin 100 mg PO HS PRN PRN Reason: leg pain Metoprolol Succinate 50 mg [Toprol Xl 50 MG] 50 mg PO DAILY #0 Follow up with: RACHEL MARTINEZ MD [Primary Care Provider] - 06/05/18 10:15 am ([facility])
[2018-05-29 12:35] VITALS: BP 152/75; PULSE 70; O2SAT 98
== END 2018-05-29 13:00 | disposition home or self-care (01) ==
LOC: MED SURG 12:33
PROVIDERS: ADMIT General Practice; ATTEND General Practice
DX: K44.9 Diaphragmatic hernia without obstruction or gangrene (principal); K21.9 Gastro-esophageal reflux disease without esophagitis; K57.90 Diverticulosis of intestine, part unspecified, without perforation or abscess without bleeding; I10 Essential (primary) hypertension; M19.90 Unspecified osteoarthritis, unspecified site; I38 Endocarditis, valve unspecified; K57.52 Diverticulitis of both small and large intestine without perforation or abscess without bleeding; F03.90 Unspecified dementia, unspecified severity, without behavioral disturbance, psychotic disturbance, mood disturbance, and anxiety; Z86.711 Personal history of pulmonary embolism; Z79.899 Other long term (current) drug therapy
CPT/HCPCS: 36415; 74176; 80053; 81002; 82150; 83605; 83690; 84484; 85025; 93268; G0378; J2405; A9270-GY

== ENCOUNTER 2019-10-13 11:55 | Observation (INO) | payer MEDICARE, OTHER ==
[2019-10-13] MEDS ORDERED: Zofran 4 MG/2 ML VIAL IV PRN (13:16)
[2019-10-13 13:27] LABS: Absolute Neutrophil Ct (ANC) 9.71 (1.4-6.9); BASOPHIL % 0.1 % (0.0-0.4); Basophil (Absolute #) 0.02 (0-0.4); Eosinophil % 1.1 % (0.00-5.0); Eosinophil (Absolute #) 0.16 (0-0.5); Hematocrit 35.2 % (35-47); Hemoglobin 11.3 gm/dl (12.0-16.0); Lymphocyte (Absolute #) 2.59 (1.0-4.6); Lymphocytes % 18.5 % (24.0-44.0); Mean Cell Volume 102.6 fl (78-100); Mean Corpuscular Hemoglobin 32.9 pg (26-32); Mean Corpuscular Hgb Concent. 32.1 g/dl (32-36); Mean Platelet Volume 9.7 fl (7.5-11.0); Monocyte (Absolute #) 1.55 (0.0-1.3); Neutrophil % 69.3 % (36.0-66.0); Platelet Count 237 K/mm3 (150-450); Red Blood Count 3.43 M/mm3 (4.1-5.4); Red Cell Distribution Width 13.4 % (11.5-14.0)
[2019-10-13 13:29] LABS: ANION GAP 13.6 MEQ/L (5-15); BILIRUBIN,TOTAL 0.9 mg/dL (0.2-1.3); Calcium 9.6 mg/dL (8.4-10.2); Creatinine 1 1.13 mg/dL (0.52-1.04)
[2019-10-13] MEDS ORDERED: Zithromax 500 MG/ 250 ML NaCl Premix 500 MG/250 ML IVPB IV SCH (14:00)
[2019-10-13] MEDS: Sodium Chloride 0.9% 1000 ML 1,000 ML IV SCH (14:09)
[2019-10-13] MEDS: ROCEPHIN 2 Gm-D5w 50ML BAG** 2 G/50 ML IVPB IV SCH (14:15)
--- NOTE | 2019-10-13 15:11 | XRAY ---
Indication: Left abdomen/flank pain. Multiple contiguous axial images obtained through the abdomen and pelvis without contrast as ordered. Comparison: May 27, 2018. Lung bases again demonstrates scattered fibrosis/scarring. No vertebral effusion. Heart is not enlarged. Stable large hiatal hernia with partial intrathoracic stomach. Noncontrasted stomach and bowel loops appear nonobstructed. There remains mild scattered colonic diverticulosis with now mild diverticulitis distal descending colon. Tiny adjacent free fluid presumed reactive. No walled off fluid collection or free air. Again previously reported appendectomy, hysterectomy, and cholecystectomy. Remaining liver, pancreas, spleen, adrenal glands, kidneys, ureters, and bladder appear unremarkable for noncontrast exam. There remains mild aortoiliac calcifications without AAA. Osseous structures again demonstrates osteopenia, remote-appearing T12 superior endplate fracture, T11 vertebral hemangioma, and right S2 perineural cyst. Impression: 1. Again scattered colonic diverticulosis with new mild distal descending diverticulitis as detailed. No complications. 2. Stable large hiatal hernia with partial intrathoracic stomach and chronic bony findings.
[2019-10-13] MEDS: FLAGYL 500 MG IVPB 500 MG/100 ML BAG IV SCH ×2 (16:08→21:20)
[2019-10-13 16:21] LABS: Slide Review 1 YES
[2019-10-13] MEDS ORDERED: ATARAX 25 MG PO PRN (16:21)
[2019-10-13 16:32] LABS: Appearance SLIGHTLY CLOUDY (CLEAR); Bilirubin NEGATIVE (NEGATIVE); Blood NEGATIVE Ery/ul (0-5); Epithelial Cells RARE /HPF (FEW); Glucose NEGATIVE (NEGATIVE); Ketones NEGATIVE (NEGATIVE); Leukocyte Esterase TRACE (NEGATIVE); Mucus SLIGHT /HPF (NEGATIVE); Nitrite NEGATIVE (NEGATIVE); Protein,Urine Dip NEGATIVE (Negative); Specific Gravity 1.015 (1.005-1.025); Urobilinogen NEGATIVE mg/dL (0-1)
[2019-10-13] MEDS: Carafate SUSPENSION 1000 MG/10 ML PO SCH (16:53)
[2019-10-13] MEDS: Fortical 3.7 ML NASAL NS SCH (16:54)
[2019-10-13] MEDS: THERAGRAN MULTIVITAMIN PO SCH (16:55)
[2019-10-13] MEDS: Toprol-Xl 25MG Tablets PO SCH (16:55)
[2019-10-13] MEDS: Lexapro 10 MG PO SCH (16:56)
[2019-10-13] MEDS: VITAMIN D PO SCH (16:57)
[2019-10-13] MEDS: TYLENOL EXTRA STRENGTH 500 MG PO PRN (19:29)
[2019-10-13] MEDS: ZYLOPRIM 100 MG PO SCH (21:22)
[2019-10-14] MEDS: Sodium Chloride 0.9% 1000 ML 1,000 ML IV SCH ×2 (02:21→14:22)
[2019-10-14] MEDS: FLAGYL 500 MG IVPB 500 MG/100 ML BAG IV SCH ×3 (05:58→22:01)
[2019-10-14] MEDS ORDERED: NON-FORMULARY ITEM (Cholecalciferol (Vitamin D3) [Vitamin D3] 1,000 UNIT) PO SCH (10:00)
[2019-10-14] MEDS: ROCEPHIN 2 Gm-D5w 50ML BAG** 2 G/50 ML IVPB IV SCH (10:06)
[2019-10-14] MEDS: THERAGRAN MULTIVITAMIN PO SCH (10:07)
[2019-10-14] MEDS: ZYLOPRIM 100 MG PO SCH ×2 (10:07→22:02)
[2019-10-14] MEDS: Carafate SUSPENSION 1000 MG/10 ML PO SCH ×3 (10:07→17:25)
[2019-10-14] MEDS: Toprol-Xl 25MG Tablets PO SCH (10:07)
[2019-10-14] MEDS: Lexapro 10 MG PO SCH (10:08)
[2019-10-14] MEDS: VITAMIN D PO SCH (10:08)
[2019-10-14] MEDS: Fortical 3.7 ML NASAL NS SCH (10:12)
[2019-10-14] MEDS: TYLENOL EXTRA STRENGTH 500 MG PO PRN (10:15)
[2019-10-14 10:18] LABS: Hematocrit 34.1 % (35-47); Hemoglobin 11.1 gm/dl (12.0-16.0); Mean Cell Volume 102.1 fl (78-100); Mean Corpuscular Hemoglobin 33.2 pg (26-32); Mean Corpuscular Hgb Concent. 32.6 g/dl (32-36); Mean Platelet Volume 8.8 fl (7.5-11.0); Platelet Count 207 K/mm3 (150-450); Red Blood Count 3.34 M/mm3 (4.1-5.4); Red Cell Distribution Width 13.2 % (11.5-14.0); White Blood Count 8.8 K/mm3 (4.0-10.5)
[2019-10-14 10:40] LABS: ANION GAP 12.4 MEQ/L (5-15); Creatinine 1 1.01 mg/dL (0.52-1.04); Potassium 3.6 mmol/L (3.5-5.1)
--- NOTE | 2019-10-14 12:14 | PCM.NOTE ---
Date and Time: 10/14/19 1213 Subjective Assessment: doing ok - Review of Systems Constitutional: No Fever, No Chills Eyes: No Symptoms Ears, Nose, & Throat: No Symptoms Respiratory: No Cough, No Short Of Breath Cardiac: No Chest Pain, No Edema, No Syncope Abdominal/Gastrointestinal: No Abdominal Pain, No Nausea, No Vomiting, No Diarrhea Genitourinary Symptoms: No Dysuria Musculoskeletal: No Back Pain, No Neck Pain Skin: No Rash Neurological: No Dizziness, No Focal Weakness, No Sensory Changes Psychological: No Symptoms Endocrine: No Symptoms Hematologic/Lymphatic: No Symptoms Immunological/Allergic: No Symptoms Objective Exam General Appearance: no apparent distress, alert Neurologic Exam: alert, oriented x 3, cooperative, normal mood/affect, nml cerebellar function, sensation nml, No motor deficits Skin Exam: normal color, warm, dry Eye Exam: PERRL, EOMI, eyes nml inspection Ears, Nose, Throat Exam: normal ENT inspection, pharynx normal, moist mucous membranes Neck Exam: normal inspection, non-tender, supple, full range of motion Respiratory Exam: normal breath sounds, lungs clear, No respiratory distress Cardiovascular Exam: regular rate/rhythm, normal heart sounds Gastrointestinal/Abdomen Exam: soft, No tenderness, No mass Extremity Exam: normal inspection, normal range of motion Back Exam: normal inspection, normal range of motion, No CVA tenderness, No vertebral tenderness Pelvic Exam: deferred Rectal Exam: deferred OBJECTIVE DATA Vital Signs: Vital Signs - 24 hr Temp Pulse Resp BP Pulse Ox 10/14/19 11:22 98.6 F 65 18 141/73 94 L 10/14/19 06:50 97.6 F 78 18 144/77 95 10/14/19 04:20 98.0 F 67 18 120/78 93 L 10/14/19 00:13 98.4 F 71 17 114/71 93 L 10/13/19 20:00 98.6 F 67 20 124/73 91 L 10/13/19 16:00 98.0 F 77 18 123/66 96 10/13/19 15:00 98.9 F 66 16 117/55 95 10/13/19 13:12 98.9 F 66 16 117/55 95 Pain Assessment - Last Documented Pain Intensity 2 Pain Scale Used 0-10 Pain Scale Intake and Output: Intake & Output 10/12/19 10/13/19 10/14/1910/15/20 11:59 11:59 11:59 11:59 Intake Total 2350 Output Total 1100 Balance 1250 Weight 52.4 kg Lab Results: Lab Results-Last 24 Hours 10/13/19 10/13/19 10/13/19 Range/Units 13:00 13:00 Unknown WBC 14.0 H (4.0-10.5) K/mm3 RBC 3.43 L (4.1-5.4) M/mm3 Hgb 11.3 L (12.0-16.0) gm/dl Hct 35.2 (35-47) % MCV 102.6 H (78-100) fl MCH 32.9 H (26-32) pg MCHC 32.1 (32-36) g/dl RDW 13.4 (11.5-14.0) % Plt Count 237 (150-450) K/mm3 MPV 9.7 (7.5-11.0) fl Gran % 69.3 H (36.0-66.0) % Eos # (Auto) 0.16 (0-0.5) Absolute Lymphs (auto) 2.59 (1.0-4.6) Absolute Monos (auto) 1.55 H (0.0-1.3) Lymphocytes % 18.5 L (24.0-44.0) % Monocytes % 11.0 (0.0-12.0) % Eosinophils % 1.1 (0.00-5.0) % Basophils % 0.1 (0.0-0.4) % Absolute Granulocytes 9.71 H (1.4-6.9) Basophils # 0.02 (0-0.4) Sodium 139 (137-145) mmol/L Potassium 4.0 (3.5-5.1) mmol/L Chloride 103 (98-107) mmol/L Carbon Dioxide 26 (22-30) mmol/L Anion Gap 13.6 (5-15) MEQ/L BUN 21 H (7-17) mg/dL Creatinine 1.13 H (0.52-1.04) mg/dL Estimated GFR 48.6 ML/MIN Glucose 100 (74-106) mg/dL Calcium 9.6 (8.4-10.2) mg/dL Total Bilirubin 0.90 (0.2-1.3) mg/dL AST 21 (14-36) U/L ALT 9 (0-35) U/L Alkaline Phosphatase 77 (38-126) U/L Serum Total Protein 7.0 (6.3-8.2) g/dL Albumin 4.0 (3.5-5.0) g/dL Urine Color YELLOW (YELLOW) Urine Appearance SLIGHTLY CLOUDY (CLEAR) Urine pH 6.0 (5-6) Ur Specific [place] 1.015 (1.005-1.025) Urine Protein NEGATIVE (Negative) Urine Ketones NEGATIVE (NEGATIVE) Urine Blood NEGATIVE (0-5) Gume/ul Urine Nitrite NEGATIVE (NEGATIVE) Urine Bilirubin NEGATIVE (NEGATIVE) Urine Urobilinogen NEGATIVE (0-1) mg/dL Ur Leukocyte Esterase TRACE (NEGATIVE) Urine WBC (Auto) 3-5 (0-5) /HPF Urine RBC (Auto) NONE (0-2) /HPF U Epithel Cells (Auto) RARE (FEW) /HPF Urine Bacteria (Auto) NONE (NEGATIVE) /HPF Urine Mucus (Auto) SLIGHT (NEGATIVE) /HPF Urine Culture Reflexed NO (NO) Urine Glucose NEGATIVE (NEGATIVE) mg/dL Slides for Path Review YES 10/14/19 10/14/19 Range/Units 10:16 10:16 WBC 8.8 (4.0-10.5) K/mm3 RBC 3.34 L (4.1-5.4) M/mm3 Hgb 11.1 L (12.0-16.0) gm/dl Hct 34.1 L (35-47) % MCV 102.1 H (78-100) fl MCH 33.2 H (26-32) pg MCHC 32.6 (32-36) g/dl RDW 13.2 (11.5-14.0) % Plt Count 207 (150-450) K/mm3 MPV 8.8 (7.5-11.0) fl Gran % (36.0-66.0) % Eos # (Auto) (0-0.5) Absolute Lymphs (auto) (1.0-4.6) Absolute Monos (auto) (0.0-1.3) Lymphocytes % (24.0-44.0) % Monocytes % (0.0-12.0) % Eosinophils % (0.00-5.0) % Basophils % (0.0-0.4) % Absolute Granulocytes (1.4-6.9) Basophils # (0-0.4) Sodium 140 (137-145) mmol/L Potassium 3.6 (3.5-5.1) mmol/L Chloride 105 (98-107) mmol/L Carbon Dioxide 26 (22-30) mmol/L Anion Gap 12.4 (5-15) MEQ/L BUN 18 H (7-17) mg/dL Creatinine 1.01 (0.52-1.04) mg/dL Estimated GFR 55.4 ML/MIN Glucose 101 (74-106) mg/dL Calcium 9.0 (8.4-10.2) mg/dL Total Bilirubin (0.2-1.3) mg/dL AST (14-36) U/L ALT (0-35) U/L Alkaline Phosphatase (38-126) U/L Serum Total Protein (6.3-8.2) g/dL Albumin (3.5-5.0) g/dL Urine Color (YELLOW) Urine Appearance (CLEAR) Urine pH (5-6) Ur Specific [place] (1.005-1.025) Urine Protein (Negative) Urine Ketones (NEGATIVE) Urine Blood (0-5) Gume/ul Urine Nitrite (NEGATIVE) Urine Bilirubin (NEGATIVE) Urine Urobilinogen (0-1) mg/dL Ur Leukocyte Esterase (NEGATIVE) Urine WBC (Auto) (0-5) /HPF Urine RBC (Auto) (0-2) /HPF U Epithel Cells (Auto) (FEW) /HPF Urine Bacteria (Auto) (NEGATIVE) /HPF Urine Mucus (Auto) (NEGATIVE) /HPF Urine Culture Reflexed (NO) Urine Glucose (NEGATIVE) mg/dL Slides for Path Review Radiology Exams: Radiology Procedures Category Date Time Status ABDOMEN AND PELVIS W/0 CONTRAS [CT] Stat Exams 10/13/19 13:21 Completed Assessment/Plan (1) Diverticulitis large intestine w/o perforation or abscess w/o bleeding Current Visit: Yes Status: Acute Assessment & Plan: Chief Complaint Diagnosis diverticulitis Allergies Allergy/AdvReac Type Severity Reaction Status Date / Time oxycodone Allergy Mild Hives Verified 10/13/19 12:17 codeine AdvReac Verified 10/13/19 12:17 morphine AdvReac Verified 10/13/19 12:17 Vital Signs (Last 24 hours) Temp Pulse Resp BP Pulse Ox 10/14/19 11:22 98.6 F 65 18 141/73 94 L 10/14/19 06:50 97.6 F 78 18 144/77 95 10/14/19 04:20 98.0 F 67 18 120/78 93 L 10/14/19 00:13 98.4 F 71 17 114/71 93 L 10/13/19 20:00 98.6 F 67 20 124/73 91 L 10/13/19 16:00 98.0 F 77 18 123/66 96 10/13/19 15:00 98.9 F 66 16 117/55 95 10/13/19 13:12 98.9 F 66 16 117/55 95 Home Medications Medication Instructions Recorded Confirmed Last Taken Type Calcitonin,Zeigler,Synthetic 1 spray NS DAILY 10/13/19 10/13/19 10/12/19 History [Fortical 3.7 ML NASAL] Cholecalciferol (Vitamin D3) 1,000 unit PO DAILY 10/13/19 10/13/19 10/12/19 History [Vitamin D3] Escitalopram Oxalate 10 mg 10 mg PO DAILY 10/13/19 10/13/19 10/12/19 History [Lexapro 10 MG] Hydroxyzine HCl 25 mg [Atarax 25 mg PO DAILY PRN PRN 10/13/19 10/13/19 Unknown History 25 mg] Metoprolol Succinate 25 mg Xl* 12.5 mg PO DAILY 10/13/19 10/13/19 10/12/19 History [Toprol-Xl 25MG Tablets] Multivitamins,Therapeutic Tab* 1 tab PO DAILY 10/13/19 10/13/19 10/12/19 History [Theragran Multivitamin] Sucralfate 1000 mg/10 ml 5 ml PO AC 10/13/19 10/13/19 10/12/19 History [Carafate SUSPENSION 1000 MG/10 ML] Current Medications Generic Name Dose Route Start Last Admin Trade Name Freq PRN Reason Stop Dose Admin Acetaminophen 1,000 mg 10/13/19 16:21 10/14/19 10:15 Tylenol Extra Strength 500 Mg PO 11/12/19 16:20 1,000 mg Q6HPRN PRN Administration MODERATE PAIN Allopurinol 200 mg 10/13/19 22:00 10/14/19 10:07 Zyloprim 100 Mg PO 11/12/19 21:59 200 mg BID SARAY Administration Calcitonin Zeigler 0 ml 10/13/19 17:00 10/14/19 10:12 Fortical 3.7 Ml Nasal NS 11/12/19 16:59 3.7 ml DAILY SARAY Administration Cholecalciferol 1,000 unit 10/13/19 17:00 10/14/19 10:08 Vitamin D PO 11/12/19 16:59 1,000 unit DAILY SARAY Administration Escitalopram Oxalate 10 mg 10/13/19 17:00 10/14/19 10:08 Lexapro 10 Mg PO 11/12/19 16:59 10 mg DAILY SARAY Administration Hydroxyzine HCl 25 mg 10/13/19 16:21 Atarax 25 Mg PO 11/12/19 16:20 DAILY PRN PRN ITCHING Ceftriaxone Sodium/Dextrose 2 g in 50 mls @ 100 mls/hr 10/13/19 14:00 10:06 Rocephin 2 Gm-D5w 50ml Bag IV 11/12/19 13:59 100 mls/hr Q24H10 SARAY Administration Sodium Chloride 1,000 mls @ 100 mls/hr 10/13/19 13:30 10/14/19 02:21 Sodium Chloride 0.9% 1000 Ml IV 11/12/19 13:29 100 mls/hr .Q10H SARAY Administration Metronidazole 500 mg in 100 mls @ 200 mls/hr 10/13/19 16:00 10/14/19 05:58 Flagyl 500 Mg Ivpb IV 11/12/19 15:59 200 mls/hr Q8HT SARAY Administration Metoprolol Succinate 12.5 mg 10/13/19 17:00 10/14/19 10:07 Toprol-Xl 25mg Tablets PO 11/12/19 16:59 12.5 mg DAILY SARAY Administration Multivitamins Therapeutic 1 tab 10/13/19 17:00 10/14/19 10:07 Theragran Multivitamin PO 11/12/19 16:59 1 tab DAILY SARAY Administration Ondansetron HCl 4 mg 10/13/19 13:16 Zofran 4 Mg/2 Ml Vial IV 11/12/19 13:15 Q6H PRN PRN NAUSEA/VOMITING Sucralfate 500 mg 10/13/19 16:30 10/14/19 12:07 Carafate Suspension 1000 Mg/10 Ml PO 11/12/19 16:29 500 mg AC SARAY Administration Discontinued Medications Generic Name Dose Route Start Last Admin Trade Name Sawyerq PRN Reason Stop Dose Admin Azithromycin 500 mg in 250 mls @ 250 mls/hr 10/13/19 14:00 10/13/19 16:12 Zithromax 500 Mg/ 250 Ml Nacl Premix IV 11/12/19 13:59 Not Given Q24H10 SARAY Intake & Output (Last 24 hours) 10/12/19 10/13/19 10/14/19 10/15/19 11:59 11:59 11:59 11:59 Intake Total 2350 Output Total 1100 Balance 1250 Weight 52.4 kg Laboratory Results (Last 24 hours) 10/14/19 10/14/19 10/13/19 10:16 10:16 Unknown WBC 8.8 RBC 3.34 L Hgb 11.1 L Hct 34.1 L MCV 102.1 H MCH 33.2 H MCHC 32.6 RDW 13.2 Plt Count 207 MPV 8.8 Gran % Eos # (Auto) Absolute Lymphs (auto) Absolute Monos (auto) Lymphocytes % Monocytes % Eosinophils % Basophils % Absolute Granulocytes Basophils # Sodium 140 Potassium 3.6 Chloride 105 Carbon Dioxide 26 Anion Gap 12.4 BUN 18 H Creatinine 1.01 Estimated GFR 55.4 Glucose 101 Calcium 9.0 Total Bilirubin AST ALT Alkaline Phosphatase Serum Total Protein Albumin Urine Color YELLOW Urine Appearance SLIGHTLY CLOUDY Urine pH 6.0 Ur Specific [place] 1.015 Urine Protein NEGATIVE Urine Ketones NEGATIVE Urine Blood NEGATIVE Urine Nitrite NEGATIVE Urine Bilirubin NEGATIVE Urine Urobilinogen NEGATIVE Ur Leukocyte Esterase TRACE Urine WBC (Auto) 3-5 Urine RBC (Auto) NONE U Epithel Cells (Auto) RARE Urine Bacteria (Auto) NONE Urine Mucus (Auto) SLIGHT Urine Culture Reflexed NO Urine Glucose NEGATIVE Slides for Path Review 10/13/19 10/13/19 13:00 13:00 WBC 14.0 H RBC 3.43 L Hgb 11.3 L Hct 35.2 MCV 102.6 H MCH 32.9 H MCHC 32.1 RDW 13.4 Plt Count 237 MPV 9.7 Gran % 69.3 H Eos # (Auto) 0.16 Absolute Lymphs (auto) 2.59 Absolute Monos (auto) 1.55 H Lymphocytes % 18.5 L Monocytes % 11.0 Eosinophils % 1.1 Basophils % 0.1 Absolute Granulocytes 9.71 H Basophils # 0.02 Sodium 139 Potassium 4.0 Chloride 103 Carbon Dioxide 26 Anion Gap 13.6 BUN 21 H Creatinine 1.13 H Estimated GFR 48.6 Glucose 100 Calcium 9.6 Total Bilirubin 0.90 AST 21 ALT 9 Alkaline Phosphatase 77 Serum Total Protein 7.0 Albumin 4.0 Urine Color Urine Appearance Urine pH Ur Specific [place] Urine Protein Urine Ketones Urine Blood Urine Nitrite Urine Bilirubin Urine Urobilinogen Ur Leukocyte Esterase Urine WBC (Auto) Urine RBC (Auto) U Epithel Cells (Auto) Urine Bacteria (Auto) Urine Mucus (Auto) Urine Culture Reflexed Urine Glucose Slides for Path Review YES Orders (Last 24 hours) Category Date Time Status Up Ad Mary TOLERATED Activity 10/13/19 13:18 Active Code Status Order ROUTINE Care 10/13/19 13:[address] in Observation ROUTINE Care 10/13/19 13:16 Active Telemetry q6h Care 10/13/19 17:40 Active Clear Liquid Diet 10/13/19 Dinner Active NPO except Meds Diet 10/13/19 13:18 Completed ABDOMEN AND PELVIS W/0 CONTRAS [CT] Stat Exams 10/13/19 13:21 Completed BMP Urgent Lab 10/14/19 10:16 Completed CBC Urgent Lab 10/14/19 10:16 Completed CBC W DIFF Stat Lab 10/13/19 13:00 Completed CMP Stat Lab 10/13/19 13:00 Completed Acetaminophen 500 mg [Tylenol Extra Strength 500 mg* Med 10/13/19 16:21 Active ] 1,000 mg PO Q6HPRN PRN Allopurinol 100 mg [Zyloprim 100 mg] Med 10/13/19 22:00 Active 200 mg PO BID Azithromycin 500 mg/250 ml [Zithromax 500 MG/ 250 ML Med 10/13/19 14:00 Discontinued NaCl Premix] 500 mg in 250 ml IV Q24H10 Calcitonin,Zeigler,Synthetic [Fortical 3.7 ML NASAL] Med 10/13/19 17:00 Active 0 ml NS DAILY Ceftriaxone 2 GM/50 ML PREMIX* [ROCEPHIN 2 Gm-D5w 50ML Med 10/13/19 14:00 Active BAG] 2 g in 50 ml IV Q24H10 Cholecalciferol (Vitamin D3) [Vitamin D] Med 10/13/19 17:00 Active 1,000 unit PO DAILY Escitalopram Oxalate 10 mg [Lexapro 10 MG] Med 10/13/19 17:00 Active 10 mg PO DAILY Hydroxyzine HCl 25 mg [Atarax 25 mg] Med 10/13/19 16:21 Active 25 mg PO DAILY PRN PRN Metoprolol Succinate 25 mg Xl* [Toprol-Xl 25MG Tablets* Med 10/13/19 17:00 Active ] 12.5 mg PO DAILY Metronidazole 500 mg Premix [Flagyl 500 mg Ivpb] Med 10/13/19 16:00 Active 500 mg in 100 ml IV Q8HT Multivitamins,Therapeutic Tab* [Theragran Multivitamin* Med 10/13/19 17:00 Active ] 1 tab PO DAILY NaCl 0.9% 1000 ml [Sodium Chloride 0.9% 1000 ML] 1,000 Med 10/13/19 13:30 Active ml IV 100 mls/hr Ondansetron HCl 4 mg/2 ml [Zofran 4 MG/2 ML VIAL] Med 10/13/19 13:16 Active 4 mg IV Q6H PRN PRN Sucralfate 1000 mg/10 ml [Carafate SUSPENSION 1000 Med 10/13/19 16:30 Active MG/10 ML] 500 mg PO AC Code(s): K57.32 - DVTRCLI OF LG INT W/O PERFORATION OR ABSCESS W/O BLEEDING
[2019-10-14] MEDS ORDERED: MOTRIN 200 MG PO PRN (12:33)
[2019-10-15] MEDS: Sodium Chloride 0.9% 1000 ML 1,000 ML IV SCH (02:05)
[2019-10-15] MEDS: TYLENOL EXTRA STRENGTH 500 MG PO PRN (06:07)
[2019-10-15] MEDS: FLAGYL 500 MG IVPB 500 MG/100 ML BAG IV SCH (06:07)
[2019-10-15 07:03] VITALS: BP 145/85; PULSE 79; O2SAT 94
[2019-10-15] MEDS: Carafate SUSPENSION 1000 MG/10 ML PO SCH (08:19)
[2019-10-15] MEDS: ROCEPHIN 2 Gm-D5w 50ML BAG** 2 G/50 ML IVPB IV SCH (09:26)
[2019-10-15] MEDS: Lexapro 10 MG PO SCH (09:29)
[2019-10-15] MEDS: Toprol-Xl 25MG Tablets PO SCH (09:30)
[2019-10-15] MEDS: THERAGRAN MULTIVITAMIN PO SCH (09:30)
[2019-10-15] MEDS: ZYLOPRIM 100 MG PO SCH (09:31)
[2019-10-15] MEDS: VITAMIN D PO SCH (09:31)
[2019-10-15] MEDS: Fortical 3.7 ML NASAL NS SCH (10:59)
== END 2019-10-15 11:40 | disposition home or self-care (01) ==
LOC: MED SURG 12:05
PROVIDERS: ADMIT General Practice; ATTEND General Practice
DX: K57.53 Diverticulitis of both small and large intestine without perforation or abscess with bleeding (principal); R10.32 Left lower quadrant pain; R51 Headache; I10 Essential (primary) hypertension; J44.9 Chronic obstructive pulmonary disease, unspecified; Z86.711 Personal history of pulmonary embolism; Z79.899 Other long term (current) drug therapy
CPT/HCPCS: 36415; 74176; 80048; 80053; 81001; 85025; 85027; 93268; G0378; J0696; J2405; A9270-GY

== ENCOUNTER 2021-03-31 12:53 | Emergency (ER) | payer MEDICARE, OTHER ==
[2021-03-31 13:17] VITALS: BP 141/94; PULSE 62; O2SAT 98
[2021-03-31 13:48] LABS: Absolute Neutrophil Ct (ANC) 3.92 (1.4-6.9); BASOPHIL % 0.3 % (0.0-0.4); Basophil (Absolute #) 0.02 (0-0.4); Eosinophil % 4.1 % (0.00-5.0); Eosinophil (Absolute #) 0.29 (0-0.5); Hematocrit 35.3 % (35-47); Lymphocyte (Absolute #) 1.98 (1.0-4.6); Lymphocytes % 27.9 % (24.0-44.0); Mean Cell Volume 98.9 fl (78-100); Mean Corpuscular Hemoglobin 30.8 pg (26-32); Mean Corpuscular Hgb Concent. 31.2 g/dl (32-36); Mean Platelet Volume 9.5 fl (7.5-11.0); Monocyte (Absolute #) 0.89 (0.0-1.3); Monocytes % 12.5 % (0.0-12.0); Neutrophil % 55.2 % (36.0-66.0); Platelet Count 246 K/mm3 (150-450); Red Blood Count 3.57 M/mm3 (4.1-5.4); Red Cell Distribution Width 14.4 % (11.5-14.0); White Blood Count 7.1 K/mm3 (4.0-10.5)
--- NOTE | 2021-03-31 15:01 | ERPHSYRPT ---
- History of Present Illness Time Seen by Provider: 03/31/21 13:20 Source: patient Exam Limitations: no limitations Patient Subjective Stated Complaint: Pt fell backwards and hit her left hip/flank on a brick step Triage Nursing Assessment: Pt brought to the ER by her daughter, hypertensive, rates pain 9-10/10, pain to left flank, no visible bruising, skin n/w/d, nausea, head ache, denies hitting head or any other injuries, denies LOC Physician History: Patient is an 85-year-old white female who was walking down a ramp in her home which is encased in a stone stairway she fell landing against the stone wall with her left flank. She complains of pain in the left flank and in the left hip area. She was able to walk but it did hurt to bear weight. Occurred just prior to arrival she had no other injury no loss of consciousness no other complaints. Occurred: just prior to arrival Reason for Fall: tripped Injuries/Pain Location: abdomen (Left flank), lower extremity (Left buttocks and hip) Loss of Consciousness: no loss of consciousness Quality: throbbing Severity of Pain-Max: moderate Severity of Pain-Current: moderate Modifying Factors: Improves With: movement Associated Symptoms (Fall): denies symptoms Allergies/Adverse Reactions: oxycodone Allergy (Mild, Verified 03/31/21 13:13) Hives vomiting codeine Adverse Reaction (Verified 03/31/21 13:13) vomiting morphine Adverse Reaction (Verified 03/31/21 13:13) vomiting Home Medications: Acetaminophen [Tylenol Extra Strength] 1,000 mg PO Q6HPRN PRN 07/25/14 [History] Cholecalciferol (Vitamin D3) [Vitamin D3] 1,000 unit PO DAILY 10/13/19 [History] Escitalopram Oxalate 10 mg [Lexapro 10 MG] 5 mg PO DAILY 10/13/19 [History] Metoprolol Succinate 25 mg Xl* [Toprol-Xl 25MG Tablets] 25 mg PO DAILY 10/13/19 [History] Multivitamins,Therapeutic Tab* [Theragran Multivitamin] 1 tab PO DAILY 10/13/19 [History] Sucralfate 1000 mg/10 ml [Carafate SUSPENSION 1000 MG/10 ML] 5 ml PO AC 10/13/19 [History] Allopurinol 100 mg [Zyloprim 100 mg] 100 mg PO DAILY 03/31/21 [History] Meclizine HCl 12.5 mg PO DAILY 03/31/21 [History] Hx Tetanus, Diphtheria Vaccination/Date Given: Yes Hx Influenza Vaccination/Date Given: No Hx Pneumococcal Vaccination/Date Given: No Travel Risk - International Travel Have you traveled outside of the country in past 3 weeks: No - Coronavirus Screening Are you exhibiting any of the following symptoms?: No Close contact with a COVID-19 positive Pt in past 14-21 Days: No - Vaccine Status Have you recieved a Covid-19 vaccination: Yes Chili Powder Mixer: Moderna - Vaccination Dates Date of 2cond Vaccination (if applicable): November, - Review of Systems Constitutional: No Fever, No Chills Eyes: No Symptoms Ears, Nose, & Throat: No Symptoms Respiratory: No Cough, No Dyspnea Cardiac: No Chest Pain, No Edema, No Syncope Abdominal/Gastrointestinal: No Abdominal Pain, No Nausea, No Vomiting, No Diarrhea Genitourinary Symptoms: Flank Pain, No Dysuria Musculoskeletal: Other (Hip and buttocks pain), No Back Pain, No Neck Pain Skin: No Rash Neurological: No Dizziness, No Focal Weakness, No Sensory Changes Psychological: No Symptoms Endocrine: No Symptoms All Other Systems: Reviewed and Negative - Past Medical History Pertinent Past Medical History: Yes Neurological History: Stroke ENT History: No Pertinent History Cardiac History: Arrhythmia, Hypertension Respiratory History: CHF, COPD, Pneumonia, Pulmonary Embolism Endocrine Medical History: No Pertinent History Musculoskeletal History: No Pertinent History, Osteoarthritis GI Medical History: GERD History: No Pertinent History Psycho-Social History: Depression Female Reproductive Disorders: No Pertinent History Other Medical History: 'SPOT ON LT LUNG',. prolapse heart valve. 5 BROKEN [address]ACES IN SPINE. esophageal hernia - Past Surgical History Past Surgical History: Yes Neuro Surgical History: No Pertinent History Cardiac: Cardiac Catheterization Respiratory: No Pertinent History Gastrointestinal: Appendectomy, Cholecystectomy Genitourinary: No Pertinent History Musculoskeletal: No Pertinent History Female Surgical History: Hysterectomy - Social History Smoking Status: Never smoker Exposure to second hand smoke: No Drug Use: none Patient Lives Alone: Yes Significant Family History: heart disease, hypertension - Female History Hx Now: No - Nursing Vital Signs Nursing Vital Signs: Initial Vital Signs Temperature 97.8 F 03/31/21 13:04 Pulse Rate 62 03/31/21 13:04 Blood Pressure 141/94 03/31/21 13:04 O2 Sat by Pulse Oximetry 98 03/31/21 13:04 Pain Scale Pain Intensity 9 - Chandan Coma Score Best Eye Response (Chandan): (4) open spontaneously Best Verbal Response (Chandan): (5) oriented Best Motor Response (Chandan): (6) obeys commands Chandan Total: 15 - Physical Exam General Appearance: mild distress Head Injury: no evidence of injury Eye Exam: PERRL/EOMI ENT Exam: airway nml Neck Exam: normal inspection, No tenderness Respiratory/Chest Exam: normal breath sounds, No chest tenderness, No respiratory distress Cardiovascular Exam: normal heart sounds, regular rate/rhythm Gastrointestinal Exam: soft, No tenderness, No distention, No guarding, No ecchymosis Back Exam: normal inspection, No vertebral tenderness Extremity Exam: other (This in the left hip and buttocks) Peripheral Pulses: carotid (R): 2+, carotid (L): 2+ Neurologic Exam: alert, oriented x 3, cooperative, sensation nml, No motor deficits Skin Exam: normal color, warm, dry SpO2 Interpretation: normal SpO2: 98 O2 Delivery: Room Air - CT Exams Abdomen/Pelvis CT Interpretation: Tele-radiologist Report (No evidence of acute injury.) Ordered Tests: Active Orders 24 hr Category Date Time Status ABDOMEN AND PELVIS W/0 CONTRAS [CT] Stat Exams 03/31/21 13:37 Taken CBC W DIFF Stat Lab 03/31/21 13:47 Completed CULTURE,URINE Stat Lab 03/31/21 13:38 Ordered UA W/RFX UR CULTURE Stat Lab 03/31/21 13:37 Ordered Lab/Rad Data: Laboratory Result Diagrams 03/31/21 13:47 Laboratory Results 03/31/21 Range/Units 13:47 WBC 7.1 (4.0-10.5) K/mm3 RBC 3.57 L (4.1-5.4) M/mm3 Hgb 11.0 L (12.0-16.0) gm/dl Hct 35.3 (35-47) % MCV 98.9 (78-100) fl MCH 30.8 (26-32) pg MCHC 31.2 L (32-36) g/dl RDW 14.4 H (11.5-14.0) % Plt Count 246 (150-450) K/mm3 MPV 9.5 (7.5-11.0) fl Gran % 55.2 (36.0-66.0) % Eos # (Auto) 0.29 (0-0.5) Absolute Lymphs (auto) 1.98 (1.0-4.6) Absolute Monos (auto) 0.89 (0.0-1.3) Lymphocytes % 27.9 (24.0-44.0) % Monocytes % 12.5 H (0.0-12.0) % Eosinophils % 4.1 (0.00-5.0) % Basophils % 0.3 (0.0-0.4) % Absolute Granulocytes 3.92 (1.4-6.9) Basophils # 0.02 (0-0.4) - Progress Progress: unchanged - Departure Departure Disposition: Home Clinical Impression: Contusion of left hip Condition: Stable Critical Care Time: No Referrals: RACHEL MARTINEZ MD [Primary Care Provider] - Instructions: Contusion (DC), Preventing Falls Prescriptions: Tramadol HCl 50 mg [Ultram 50 mg] 50 mg PO Q6H 3 Days #12 tablet
--- NOTE | 2021-03-31 19:33 | XRAY ---
Indication: Pain following fall. Multiple contiguous axial images obtained through the abdomen and pelvis without contrast. Comparison: October 13, 2019. Lung bases again hyperinflated with scattered fibrosis/scarring. No infiltrate or effusion. Heart not enlarged. Again large hiatal hernia with intrathoracic stomach. Noncontrasted stomach and bowel loops are nonobstructed again with scattered colonic diverticulosis, appendectomy, hysterectomy, and cholecystectomy. No free fluid/air. Remaining liver, pancreas, spleen, adrenal glands, kidneys, ureters, and bladder are unremarkable for noncontrast exam. There remains mild aortoiliac calcifications without AAA. Osseous structures intact again with osteopenia, remote T12 compression fracture, T11 vertebral hemangioma, and right S2 perineural cyst. No ventral or inguinal hernias. Impression: 1. Stable large hiatal hernia with intrathoracic stomach, colonic diverticulosis, and chronic bony findings. 2. Remaining CT abdomen/pelvis without contrast exam is negative. Comment: Preliminary interpretation made by [facility]. No critical discrepancy.
== END 2021-03-31 15:35 | disposition home or self-care (01) ==
LOC: ED 12:53
DX: S70.02XA Contusion of left hip, initial encounter (principal); W01.198A Fall on same level from slipping, tripping and stumbling with subsequent striking against other object, initial encounter; Y93.9 Activity, unspecified; Y92.9 Unspecified place or not applicable; Y99.9 Unspecified external cause status; Z79.899 Other long term (current) drug therapy; I50.9 Heart failure, unspecified; J44.9 Chronic obstructive pulmonary disease, unspecified; Z86.711 Personal history of pulmonary embolism; M19.90 Unspecified osteoarthritis, unspecified site; I10 Essential (primary) hypertension
CPT/HCPCS: 36415; 74176; 85025; 99284

== ENCOUNTER 2021-12-18 09:46 | Observation (INO) | payer MEDICARE, OTHER ==
[2021-12-18] MEDS ORDERED: Reglan 10 MG/2 ML IV ONE (10:05)
[2021-12-18] MEDS ORDERED: Nubain 10 MG/ML IV ONE (10:06)
[2021-12-18] MEDS ORDERED: Reglan 10 MG/2 ML ONE (10:10)
[2021-12-18] MEDS ORDERED: Nubain 10 MG/ML ONE (10:10)
--- NOTE | 2021-12-18 11:02 | XRAY ---
Indication: Multiple falls. Multiple contiguous axial images obtained through the thoracic spine. Sagittal and coronal reformatted images obtained. Comparison: August 27, 2019. Osseous structures remain demineralized. Grossly stable mild degenerative changes throughout the spine, mild dextroscoliosis, and remote T5/T12 compression fractures. T6 vertebral body demonstrates new compression fracture with less than 25% height loss of uncertain chronicity. No spinal canal or foraminal encroachment. Also new healing nondisplaced right 9 and 10 posterior rib fractures. Visualized noncontrasted soft tissues again demonstrates scattered pulmonary fibrosis/scarring, arteriosclerotic aorta, and large hiatal hernia with partial intrathoracic stomach. Impression: 1. New mild T6 vertebral body fracture of uncertain chronicity. Also new healing right 9/10 rib fractures. 2. Again osteopenia, multilevel degenerative changes, scoliosis, remote T5/T12 compression fractures, pulmonary fibrosis/scarring, arteriosclerotic disease, and large hiatal hernia.
--- NOTE | 2021-12-18 11:06 | XRAY ---
Indication: Multiple falls. Multiple contiguous axial images obtained through the lumbar spine. Sagittal and coronal reformatted images obtained. Comparison: March 31, 2021. CT thoracic spine reported separately. Osseous structures remain demineralized with grossly stable mild broad-based L3-L5 disc bulge and right S2 perineural cyst. Axial images negative for acute fracture, suspicious bony lesions, or spinal canal stenosis. Facets and SI joints are symmetric. Sagittal and coronal reformatted images again demonstrate normal alignment with vertebral body height/disc spaces maintained. No acute compression fracture or subluxation. Visualized noncontrasted soft tissues again demonstrates mild scattered aortoiliac calcifications. Impression: 1. Stable osteopenia, L3-L5 broad-based disc bulge, right S2 perineural cyst, and arteriosclerotic disease. 2. Remaining CT lumbar spine is negative.
--- NOTE | 2021-12-18 11:34 | ERPHSYRPT ---
- History of Present Illness Time Seen by Provider: 12/18/21 10:04 Source: patient, family, EMS Exam Limitations: no limitations Patient Subjective Stated Complaint: pt fell 2 days ago and her back pain continues to worsen, pt falls often Triage Nursing Assessment: Pt brought to the ER by EMS, hypertensive, rates pain 05/18, no visible bruising, walks with a walker but has been falling often lately, denies hitting head recently, denies LOC, pulses normal, skin clammy, warm, appears to be in moderate pain Physician History: 86 years old female with history of GERD, chronic back pain, recurrent falls presented in the ER with chief complaint of mid to low back pain worsening for the last couple of days after she took a recent fall from a standing position. Patient reports moderate to severe sharp shooting pain, no radiation to lower extremities and no loss of bowel or bladder control. No numbness tingling or weakness of lower extremities. Patient has a history of osteoporosis and multiple compression fractures in the past. Denies hitting her head, loss of consciousness. Also complaining of some pain on the right side of the chest wall but did not hit it recently. No abdominal pain nausea or vomiting. Patient is given fentanyl in route by EMS and is feeling nauseated. Occurred: days ago (2) Reason for Fall: fell from standing pos Injuries/Pain Location: back Loss of Consciousness: no loss of consciousness Quality: sharpness Severity of Pain-Max: severe Severity of Pain-Current: moderate Modifying Factors: Improves With: immobilization, pain medication. Worsens With: movement Associated Symptoms (Fall): back pain, muscle spasms, trouble walking Allergies/Adverse Reactions: oxycodone Allergy (Mild, Verified 12/18/21 10:05) Hives vomiting codeine Adverse Reaction (Verified 12/18/21 10:05) vomiting morphine Adverse Reaction (Verified 12/18/21 10:05) vomiting Home Medications: Escitalopram Oxalate 10 mg [Lexapro 10 MG] 10 mg PO DAILY 10/13/19 [History] Allopurinol 100 mg [Zyloprim 100 mg] 100 mg PO DAILY 03/31/21 [History] PANTOPRAZOLE 40 mg Tablet [Protonix 40MG Tablet] 40 mg PO QAM 12/18/21 [History] Potassium Chloride [Klor-Con M10] 40 meq PO DAILY 12/18/21 [History] Hx Tetanus, Diphtheria Vaccination/Date Given: Yes Hx Influenza Vaccination/Date Given: No Hx Pneumococcal Vaccination/Date Given: No Travel Risk - International Travel Have you traveled outside of the country in past 3 weeks: No - Coronavirus Screening Are you exhibiting any of the following symptoms?: No - Vaccine Status Have you recieved a Covid-19 vaccination: Yes Environmental Auditor: Moderna - Vaccination Dates Date of 2cond Vaccination (if applicable): November, - Review of Systems Constitutional: No Symptoms Eyes: No Symptoms Ears, Nose, & Throat: No Symptoms Respiratory: No Symptoms Cardiac: No Symptoms Abdominal/Gastrointestinal: No Symptoms Genitourinary Symptoms: No Symptoms Musculoskeletal: Back Pain, Injury Skin: No Symptoms Neurological: No Symptoms Psychological: No Symptoms Endocrine: No Symptoms Hematologic/Lymphatic: No Symptoms Immunological/Allergic: No Symptoms - Past Medical History Pertinent Past Medical History: Yes Neurological History: Stroke ENT History: No Pertinent History Cardiac History: Arrhythmia, Hypertension Respiratory History: CHF, COPD, Pneumonia, Pulmonary Embolism Endocrine Medical History: No Pertinent History Musculoskeletal History: No Pertinent History, Osteoarthritis GI Medical History: GERD History: No Pertinent History Psycho-Social History: Depression Female Reproductive Disorders: No Pertinent History Other Medical History: 'SPOT ON LT LUNG',. prolapse heart valve. 5 BROK[address]ES IN SPINE. esophageal hernia - Past Surgical History Past Surgical History: Yes Neuro Surgical History: No Pertinent History Cardiac: Cardiac Catheterization Respiratory: No Pertinent History Gastrointestinal: Appendectomy, Cholecystectomy Genitourinary: No Pertinent History Musculoskeletal: No Pertinent History Female Surgical History: Hysterectomy - Social History Smoking Status: Never smoker Exposure to second hand smoke: Yes Drug Use: none Patient Lives Alone: No Significant Family History: heart disease, hypertension - Nursing Vital Signs Nursing Vital Signs: Initial Vital Signs Temperature 97.7 F 12/18/21 09:48 Pulse Rate 83 12/18/21 09:48 Blood Pressure 169/119 12/18/21 09:48 O2 Sat by Pulse Oximetry 94 L 12/18/21 09:48 Pain Scale Pain Intensity 9 - Eldena Coma Score Best Eye Response (Eldena): (4) open spontaneously Best Verbal Response (Eldena): (5) oriented Best Motor Response (Chandan): (6) obeys commands Chandan Total: 15 - Physical Exam General Appearance: no apparent distress, alert, anxiety Head Injury: no evidence of injury, No active bleeding, No Meneses's Sign, No contusions Eye Exam: PERRL/EOMI, eyes nml inspection ENT Exam: airway nml, No evidence of ENT injury, No dental injury Neck Exam: supple, trachea midline, full range of motion, normal alignment, normal inspection Respiratory/Chest Exam: chest tenderness (Right anterolateral and posterior), normal breath sounds, No respiratory distress Cardiovascular Exam: normal heart sounds, regular rate/rhythm Gastrointestinal Exam: soft, normal bowel sounds, No tenderness Back Exam: normal inspection, vertebral tenderness (Mid thoracic down to lumbar vertebra to sacrum. No step-off deformity.), No normal range of motion Extremity Exam: normal inspection, normal range of motion Neurologic Exam: alert, oriented x 3, cooperative, primary health care nurse II-XII nml as tested, nml cerebellar function, sensation nml, No motor deficits Skin Exam: normal color SpO2 Interpretation: normal SpO2: 92 O2 Delivery: Room Air Ordered Tests: Active Orders 24 hr Category Date Time Status LUMBAR SPINE W/O [CT] Stat Exams 12/18/21 10:05 Completed THORACIC SPINE W/O CONTRAST [CT] Stat Exams 12/18/21 10:05 Completed CBC W DIFF Stat Lab 12/18/21 11:29 Ordered CMP Stat Lab 12/18/21 11:29 Ordered UA W/RFX UR CULTURE Stat Lab 12/18/21 11:29 Ordered Medication Summary Discontinued Medications Generic Name Dose Route Start Last Admin Trade Name Freq PRN Reason Stop Dose Admin Metoclopramide HCl 10 mg 12/18/21 10:05 12/18/21 10:11 Metoclopramide Hcl 10 Mg/2 Ml Vial IV 12/18/21 10:06 10 mg STAT ONE Administration Metoclopramide HCl Confirm 12/18/21 10:10 Metoclopramide Hcl 10 Mg/2 Ml Vial Administered 12/18/21 10:11 Dose 10 mg .ROUTE .STK-MED ONE Nalbuphine HCl 10 mg 12/18/21 10:06 12/18/21 10:11 Nalbuphine Hcl 10 Mg/Ml Ampul IV 12/18/21 10:07 10 mg STAT ONE Administration Nalbuphine HCl Confirm 12/18/21 10:10 Nalbuphine Hcl 10 Mg/Ml Ampul Administered 12/18/21 10:11 Dose 10 mg .ROUTE .STK-MED ONE - Progress Progress: improved Progress Note: 12/18/21 11:35 Patient is allergic to multiple pain medications, given Nubain and Reglan, on reevaluation feeling better but pain is not completely resolved. Patient CT showed new vertebral body fracture of T6 and does have old compression fractures/lumbar bulging disc but stable. Patient I believe needs to be observed for pain control/physical therapy/rehab. Discussed with and patient is being admitted for observation. 12/18/21 11:37 Counseled pt/family regarding: diagnosis, need for follow-up, rad results - Departure Departure Disposition: Observation Clinical Impression: Intractable back pain, Compression fracture, Closed fracture of thoracic vertebral body, Fall Condition: Stable Critical Care Time: No Referrals: RACHEL MARTINEZ MD [Primary Care Provider] - Follow up/PCP as directed
[2021-12-18 11:49] LABS: Absolute Neutrophil Ct (ANC) 6.31 (1.4-6.9); Basophil (Absolute #) 0.01 (0-0.4); Eosinophil % 0.6 % (0.00-5.0); Eosinophil (Absolute #) 0.05 (0-0.5); Hematocrit 36.6 % (35-47); Hemoglobin 11.8 gm/dl (12.0-16.0); Lymphocyte (Absolute #) 1.13 (1.0-4.6); Lymphocytes % 14.1 % (24.0-44.0); Mean Cell Volume 99.7 fl (78-100); Mean Corpuscular Hemoglobin 32.2 pg (26-32); Mean Corpuscular Hgb Concent. 32.2 g/dl (32-36); Mean Platelet Volume 9.4 fl (7.5-11.0); Monocyte (Absolute #) 0.54 (0.0-1.3); Monocytes % 6.7 % (0.0-12.0); Neutrophil % 78.5 % (36.0-66.0); Platelet Count 261 K/mm3 (150-450); Red Blood Count 3.67 M/mm3 (4.1-5.4); Red Cell Distribution Width 14.3 % (11.5-14.0)
[2021-12-18 12:01] LABS: ANION GAP 15.2 MEQ/L (5-15); BILIRUBIN,TOTAL 0.7 mg/dL (0.2-1.3); Calcium 9.3 mg/dL (8.4-10.2); Creatinine 1 1.25 mg/dL (0.52-1.04); Potassium 3.2 mmol/L (3.5-5.1); Total Protein 6.5 g/dL (6.3-8.2)
[2021-12-18 12:13] LABS: Bacteria RARE /HPF (NEGATIVE); Mucus SLIGHT /HPF (NEGATIVE); WBC 0-2 /HPF (0-5)
[2021-12-18 12:14] LABS: Appearance CLEAR (CLEAR); Bilirubin NEGATIVE (NEGATIVE); Glucose 100 mg/dL (NEGATIVE); Ketones NEGATIVE (NEGATIVE); Nitrite NEGATIVE (NEGATIVE); Ph 5.5 (5-6); Protein,Urine Dip 30 (Negative); RBC NEGATIVE Ery/ul (0-5); Specific Gravity 1.025 (1.005-1.025); Urine Cultured Indicated? NO; Urobilinogen 0.2 mg/dL (0-1)
[2021-12-18 12:15] LABS: Dipstick done @ ? MAIN LAB
[2021-12-18 12:47] LABS: INFLUENZA A NEGATIVE (NEGATIVE); INFLUENZA B NEGATIVE (NEGATIVE); RESPIRATORY SYNCTIAL VIRUS NEGATIVE (Negative); SARS-CoV-2 Xpert Express NEGATIVE (NEGATIVE)
[2021-12-18] MEDS ORDERED: SUBLIMAZE 100 MCG/2 ML IV PRN (13:59)
[2021-12-18] MEDS ORDERED: DUONEB 0.5-3 MG/3 ml Neb IH PRN (13:59)
[2021-12-18] MEDS: Zofran 4 MG/2 ML VIAL IV PRN ×2 (14:11→21:26)
[2021-12-18] MEDS: Cardizem CD 120 MG PO SCH (17:22)
[2021-12-18] MEDS: Compazine 10 MG/2 ML IV PRN (17:23)
[2021-12-18] MEDS: Klor Con 10 MEQ PO SCH (18:12)
[2021-12-18] MEDS: Protonix 40MG Tablet PO SCH (18:14)
[2021-12-18] MEDS: Lexapro 10 MG PO SCH (18:14)
[2021-12-18] MEDS: TYLENOL 325 MG PO PRN (18:31)
[2021-12-18] MEDS: Hydromorphone 1 mg/ml Injection IV PRN (21:26)
[2021-12-18] MEDS ORDERED: ZYLOPRIM 100 MG ONE (23:36)
[2021-12-19] MEDS: Compazine 10 MG/2 ML IV PRN (04:46)
[2021-12-19] MEDS: Hydromorphone 1 mg/ml Injection IV PRN ×2 (04:46→09:01)
[2021-12-19 06:42] LABS: Calcium 9.3 mg/dL (8.4-10.2); Creatinine 1 1.25 mg/dL (0.52-1.04); Potassium 3.4 mmol/L (3.5-5.1)
[2021-12-19] MEDS: Lexapro 10 MG PO SCH (08:31)
[2021-12-19] MEDS: Klor Con 10 MEQ PO SCH (08:31)
[2021-12-19] MEDS: Cardizem CD 120 MG PO SCH (08:32)
[2021-12-19] MEDS: Protonix 40MG Tablet PO SCH (08:32)
--- NOTE | 2021-12-19 08:39 | XRAY ---
Indication: Headache and confusion. Status post fall. Multiple contiguous axial images obtained through the head without contrast. Graft comparison: July 26, 2014. There is progressive worsening age-appropriate global atrophy and moderate periventricular degenerative micro-ischemia bilaterally. Remote lacunar infarct right basal ganglia. No acute intracranial hemorrhage, abnormal extra-axial fluid collection, or mass effect. Fourth ventricle is midline without hydrocephalus. Bony calvarium intact. Paranasal sinuses and mastoid air cells are clear. Impression: Nonacute senile brain. Remote lacunar infarct right basal ganglia.
[2021-12-19] MEDS: Zofran 4 MG/2 ML VIAL IV PRN (09:01)
[2021-12-19] MEDS ORDERED: NON-FORMULARY ITEM (Potassium Chloride [Klor-Con M10] 10 MEQ Tab.Er.Prt) PO SCH (10:00)
[2021-12-19] MEDS ORDERED: PROTONIX 40 MG IV IV SCH (10:00)
[2021-12-19] MEDS ORDERED: NORCO 5/325 MG PO PRN (13:13)
[2021-12-19] MEDS: ZOFRAN ODT 4 MG PO PRN ×2 (13:33→18:25)
[2021-12-19] MEDS: PERCOCET TABLET 5/325MG PO PRN ×2 (13:35→18:25)
--- NOTE | 2021-12-19 14:21 | PCM.HP ---
History of Present Illness - Chief Complaint Chief Complaint: severe back pain, fall History of Present Illness: is a 86 year old female.with history of GERD, chronic back pain, recurrent falls presented in the ER with chief complaint of mid to low back pain worsening for the last couple of days after she took a recent fall from a standing position. Patient reports moderate to severe sharp shooting pain, no radiation to lower extremities and no loss of bowel or bladder control. No numbness tingling or weakness of lower extremities. Patient has a history of osteoporosis and multiple compression fractures in the past. Denies hitting her head, loss of consciousness. Also complaining of some pain on the right side of the chest wall but did not hit it recently. No abdominal pain nausea or vomiting. Patient is given fentanyl in route by EMS and is feeling nauseated. Occurred: days ago (2) Reason for Fall: fell from standing pos Injuries/Pain Location: back Loss of Consciousness: no loss of consciousness Quality: sharpness Severity of Pain-Max: severe Severity of Pain-Current: moderate Modifying Factors: Improves With: immobilization, pain medication. Worsens With: movement Associated Symptoms (Fall): back pain, muscle spasms, trouble walking - Review of Systems Constitutional: No Fever, No Chills Eyes: No Symptoms Ears, Nose, & Throat: No Symptoms Respiratory: No Cough, No Short Of Breath Cardiac: No Chest Pain, No Edema, No Syncope Abdominal/Gastrointestinal: No Abdominal Pain, No Nausea, No Vomiting, No Diarrhea Genitourinary Symptoms: No Dysuria Musculoskeletal: Back Pain, Fall, No Neck Pain Skin: No Rash Neurological: No Dizziness, No Focal Weakness, No Sensory Changes Psychological: No Symptoms Endocrine: No Symptoms Hematologic/Lymphatic: No Symptoms Immunological/Allergic: No Symptoms Medications & Allergies Home Medications: Home Medication List Escitalopram Oxalate 10 mg [Lexapro 10 MG] 10 mg PO DAILY 10/13/19 [History Confirmed 12/18/21] Allopurinol 100 mg [Zyloprim 100 mg] 100 mg PO QHS 12/18/21 [History Confirmed 12/18/21] PANTOPRAZOLE 40 mg Tablet [Protonix 40MG Tablet] 40 mg PO QAM 12/18/21 [History Confirmed 12/18/21] Potassium Chloride [Klor-Con M10] 40 meq PO DAILY 12/18/21 [History Confirmed 12/18/21] Allergies/Adverse Reactions: Allergies Allergy/AdvReac Type Severity Reaction Status Date / Time codeine AdvReac Verified 12/18/21 10:05 morphine AdvReac Verified 12/18/21 10:05 - Past Medical History Past Medical History: Yes Neurological History: Stroke ENT History: No Pertinent History Cardiac History: Arrhythmia, Hypertension Respiratory History: CHF, COPD, Pneumonia, Pulmonary Embolism Endocrine Medical History: No Pertinent History Musculoskelatal History: No Pertinent History, Osteoarthritis GI Medical History: GERD History: No Pertinent History Pyscho-Social History: Depression Reproductive Disorders: No Pertinent History Comment: 'SPOT ON LT LUNG',. prolapse heart valve. 5 BROKEN PLACES IN SPINE. esophageal hernia - Female History Are you now?: No - Past Surgical History Past Surgical History: Yes Neuro Surgical History: No Pertinent History Cardiac History: Cardiac Catheterization Respiratory Surgery: No Pertinent History GI Surgical History: Appendectomy, Cholecystectomy Genitourinary Surgical Hx: No Pertinent History Musculskeletal Surgical Hx: No Pertinent History Female Surgical History: Hysterectomy - Social History Smoking Status: Never smoker Exposure to second hand smoke: No Alcohol: None Drug Use: none Significant Family History: heart disease, hypertension - Physical Exam Vital Signs: Vital Signs - 24 hr Temp Pulse Resp BP Pulse Ox 12/19/21 11:55 98.5 F 61 16 125/64 92 L 12/19/21 11:18 93 L 12/19/21 07:35 98.6 F 75 16 136/83 94 L 12/19/21 04:00 98.7 F 83 18 167/101 93 L 12/18/21 23:52 98.9 F 111 H 17 169/90 93 L 12/18/21 20:13 98.2 F 93 H 16 140/88 91 L 12/18/21 19:24 91 L 12/18/21 17:18 68 18 98 12/18/21 16:00 97.9 F 89 16 174/82 98 12/18/21 15:29 177/93 General Appearance: no apparent distress, alert Neurologic Exam: alert, oriented x 3, cooperative, normal mood/affect, nml cereb ellar function, nml station & gait, sensation nml, No motor deficits Eye Exam: PERRL/EOMI, eyes nml inspection Ears, Nose, Throat Exam: normal ENT inspection, TMs normal, pharynx normal, moist mucous membranes Neck Exam: normal inspection, non-tender, supple, full range of motion Respiratory Exam: normal breath sounds, lungs clear, No respiratory distress Cardiovascular Exam: regular rate/rhythm, normal heart sounds, normal peripheral pulses Gastrointestinal/Abdomen Exam: soft, normal bowel sounds, No tenderness, No mass Back Exam: normal inspection, normal range of motion, No CVA tenderness, No vertebral tenderness Extremity Exam: normal inspection, normal range of motion, pelvis stable Skin Exam: normal color, warm, dry, No rash Lymphatic Exam: No adenopathy Results - Labs Lab/Micro Results: Lab Results-Last 24 Hours 12/18/21 12/19/21 Range/Units 11:51 04:30 Sodium 142 (137-145) mmol/L Potassium 3.4 L (3.5-5.1) mmol/L Chloride 110 H (98-107) mmol/L Carbon Dioxide 24 (22-30) mmol/L Anion Gap 11.0 (5-15) MEQ/L BUN 29 H (7-17) mg/dL Creatinine 1.25 H (0.52-1.04) mg/dL Estimated GFR 43.0 ML/MIN Glucose 93 (74-106) mg/dL Calcium 9.3 (8.4-10.2) mg/dL Prealbumin 23.07 (17.6-36.0) mg/dL - Radiology Impressions Radiology Exams & Impressions: Radiology Procedures Category Date Time Status HEAD WITHOUT CONTRAST [CT] Stat Exams 12/18/21 17:12 Completed LUMBAR SPINE W/O [CT] Stat Exams 12/18/21 10:05 Completed THORACIC SPINE W/O CONTRAST [CT] Stat Exams 12/18/21 10:[address]/LUMBAR SPINE W/O Indication: Multiple falls. Multiple contiguous axial images obtained through the lumbar spine. Sagittal and coronal reformatted images obtained. Comparison: March 31, 2021. CT thoracic spine reported separately. Osseous structures remain demineralized with grossly stable mild broad-based L3-L5 disc bulge and right S2 perineural cyst. Axial images negative for acute fracture, suspicious bony lesions, or spinal canal stenosis. Facets and SI joints are symmetric. Sagittal and coronal reformatted images again demonstrate normal alignment with vertebral body height/disc spaces maintained. No acute compression fracture or subluxation. Visualized noncontrasted soft tissues again demonstrates mild scattered aortoiliac calcifications. Impression: 1. Stable osteopenia, L3-L5 broad-based disc bulge, right S2 perineural cyst, and arteriosclerotic disease. 2. Remaining CT lumbar spine is negative - Other Procedures and Tests Respiratory Therapy 12/18/21 17:18 Oxygen NASAL CANNULA 2 lpm Assessment/Plan (1) Closed fracture of thoracic vertebral body Current Visit: Yes Status: Acute Assessment & Plan: Chief Complaint Diagnosis Thoracic vertebral body fracture Allergies Allergy/AdvReac Type Severity Reaction Status Date / Time codeine AdvReac Verified 12/18/21 10:05 morphine AdvReac Verified 12/18/21 10:05 Vital Signs (Last 24 hours) Temp Pulse Resp BP Pulse Ox 12/19/21 11:55 98.5 F 61 16 125/64 92 L 12/19/21 11:18 93 L 12/19/21 07:35 98.6 F 75 16 136/83 94 L 12/19/21 04:00 98.7 F 83 18 167/101 93 L 12/18/21 23:52 98.9 F 111 H 17 169/90 93 L 12/18/21 20:13 98.2 F 93 H 16 140/88 91 L 12/18/21 19:24 91 L 12/18/21 17:18 68 18 98 12/18/21 16:00 97.9 F 89 16 174/82 98 12/18/21 15:29 177/93 Home Medications Medication Instructions Recorded Confirmed Last Taken Type Allopurinol 100 mg [Zyloprim 100 mg PO QHS 12/18/21 12/18/21 12/17/21 22:00 History 100 mg] 100 PANTOPRAZOLE 40 mg Tablet 40 mg PO QAM 12/18/21 12/18/21 12/17/21 History [Protonix 40MG Tablet] Potassium Chloride [Klor-Con M10] 40 meq PO DAILY 12/18/21 12/18/21 12/17/21 History Current Medications Generic Name Dose Route Start Last Admin Trade Name Freq PRN Reason Stop Dose Admin Acetaminophen 650 mg 12/18/21 13:59 12/18/21 18:31 Acetaminophen 325 Mg Tablet PO 01/17/22 13:58 650 mg Q4H PRN PRN Administration PAIN AND/OR FEVER Allopurinol 100 mg 12/19/21 22:00 12/18/21 23:38 Allopurinol 100 Mg Tablet PO 01/18/22 21:59 100 mg QHS SARAY Administration Diltiazem HCl 120 mg 12/18/21 17:12 12/19/21 08:32 Diltiazem Hcl 120 Mg Cap.Sr.24h PO 01/17/22 17:11 120 mg DAILY SARAY Administration Escitalopram Oxalate 10 mg 12/18/21 18:00 12/19/21 08:31 Escitalopram Oxalate 10 Mg Tablet PO 01/17/22 17:59 10 mg DAILY SARAY Administration Hydromorphone HCl 0.5 mg 12/18/21 17:12 12/19/21 09:01 Hydromorphone 1 Mg/1ml Inj 1 Mg/Ml Syringe IV 12/23/21 17:11 0.5 mg Q4H PRN PRN Administration PAIN Ondansetron HCl 4 mg 12/18/21 13:59 12/19/21 09:01 Ondansetron Hcl 4 Mg/2 Ml Vial IV 01/17/22 13:58 4 mg Q6H PRN PRN Administration NAUSEA/VOMITING Ondansetron HCl 4 mg 12/19/21 13:28 12/19/21 13:33 Zofran 4 Mg/Udtablet Orally Disintegrating PO 01/18/22 13:27 4 mg Q4H PRN PRN Administration NAUSEA/VOMITING Oxycodone/Acetaminophen 1 tab 12/19/21 13:26 12/19/21 13:35 Oxycodone Hcl/Apap 5 Mg/325 Mg Tablet PO 12/24/21 13:25 1 tab Q4H PRN PRN Administration PAIN Pantoprazole Sodium 40 mg 12/18/21 18:00 12/19/21 08:32 Protonix (Pantoprazole) 40 Mg Tablet PO 01/17/22 17:59 40 mg QAM SARAY Administration Potassium Chloride 40 meq 12/18/21 18:00 12/19/21 08:31 Potassium Chloride 10 Meq Tablet PO 01/17/22 17:59 40 meq DAILY SARAY Administration Prochlorperazine Edisylate 5 mg 12/18/21 17:12 12/19/21 04:46 Prochlorperazine Edisylate 10 Mg/2 Ml Vial IV 01/17/22 17:11 5 mg Q6H PRN PRN Administration NAUSEA/VOMITING Sucralfate 1,000 mg 12/19/21 16:30 Sucralfate 1000 Mg/10 Ml Suspension PO 01/18/22 16:29 AC SARAY Discontinued Medications Generic Name Dose Route Start Last Admin Trade Name Freq PRN Reason Stop Dose Admin Hydrocodone Bitart/Acetaminophen 1 tab 12/19/21 13:13 Hydrocodone/Apap 5/325 Mg Tablet PO 12/24/21 13:12 Q4H PRN PRN PAIN Albuterol/Ipratropium 3 ml 12/18/21 13:59 Ipratropium/Albuterol Sulfate 3 Ml Ampul.Neb IH 01/17/22 13:58 Q4HPRN PRN SHORTNESS OF BREATH/WHEEZING Allopurinol Confirm 12/18/21 23:36 Allopurinol 100 Mg Tablet Administered 12/18/21 23:37 Dose 100 mg .ROUTE .STK-MED ONE Fentanyl Citrate 25 mcg 12/18/21 13:59 12/18/21 14:11 Fentanyl Citrate 100 Mcg/2 Ml* Vial IV 12/23/21 13:58 25 mcg Q4H PRN PRN Administration SEVERE PAIN Metoclopramide HCl 10 mg 12/18/21 10:05 12/18/21 10:11 Metoclopramide Hcl 10 Mg/2 Ml Vial IV 12/18/21 10:06 10 mg STAT ONE Administration Metoclopramide HCl Confirm 12/18/21 10:10 Metoclopramide Hcl 10 Mg/2 Ml Vial Administered 12/18/21 10:11 Dose 10 mg .ROUTE .STK-MED ONE Nalbuphine HCl 10 mg 12/18/21 10:06 12/18/21 10:11 Nalbuphine Hcl 10 Mg/Ml Ampul IV 12/18/21 10:07 10 mg STAT ONE Administration Nalbuphine HCl Confirm 12/18/21 10:10 Nalbuphine Hcl 10 Mg/Ml Ampul Administered 12/18/21 10:11 Dose 10 mg .ROUTE .STK-MED ONE Pantoprazole Sodium 40 mg 12/19/21 10:00 Pantoprazole 40 Mg Vial IV 01/18/22 09:59 Q24H10 SARAY Intake & Output (Last 24 hours) 12/17/21 12/18/21 12/19/21 04/22 11:59 11:59 11:59 11:59 Intake Total 640 240 Output Total 300 Balance 340 240 Weight 45.813 kg 44.9 kg Laboratory Results (Last 24 hours) 12/19/21 12/18/21 04:30 11:51 Sodium 142 Potassium 3.4 L Chloride 110 H Carbon Dioxide 24 Anion Gap 11.0 BUN 29 H Creatinine 1.25 H Estimated GFR 43.0 Glucose 93 Calcium 9.3 Prealbumin 23.07 Orders (Last 24 hours) Category Date Time Status Bedrest ROUTINE Activity 12/18/21 13:59 Active Up With Assistance ROUTINE Activity 12/18/21 13:59 Active Code Status Order ROUTINE Care 12/18/21 13:59 Active Fall Protocol Q1H Care 12/18/21 13:59 Active IV Care Q6H Care 12/18/21 13:59 Active Neuro Checks Q4H Care 12/18/21 13:59 Active Nursing [Miscellaneous Nursing Order] ROUTINE Care 12/19/21 12:[address] in Observation ROUTINE Care 12/18/21 13:59 Active Franklyn Castillo, Apply ROUTINE Care 12/18/21 13:59 Active Weight,Daily 0600 Care 12/18/21 13:59 Active Consult Physician ROUTINE Cons 12/19/21 09:01 Active Software Engineer Developer/Discharge Plan ROUTINE Cons 12/18/21 14:41 Active Heart-Healthy Diet Diet 12/18/21 Dinner Active Discharge Planning,Consult Routine Discharge 12/19/21 Active HEAD WITHOUT CONTRAST [CT] Stat Exams 12/18/21 17:12 Completed BMP AM.LAB Lab 12/19/21 04:30 Completed Acetaminophen 325 mg [Tylenol 325 mg] Med 12/18/21 13:59 Active 650 mg PO Q4H PRN PRN Albuterol/Ipratropium 3ml Neb* [DUONEB 0.5-3 MG/3 ml Med 12/18/21 13:59 Discontinued Neb] 3 ml IH Q4HPRN PRN Allopurinol 100 mg [Zyloprim 100 mg] Med 12/18/21 23:36 Discontinued 100 mg .ROUTE .STK-MED ONE Allopurinol 100 mg [Zyloprim 100 mg] Med 12/19/21 22:00 Active 100 mg PO QHS Diltiazem HCl 120 mg [Cardizem CD 120 MG] Med 12/18/21 17:12 Active 120 mg PO DAILY Escitalopram Oxalate 10 mg [Lexapro 10 MG] Med 12/18/21 18:00 Active 10 mg PO DAILY Fentanyl Citrate 100 Mcg/2 ml* [Sublimaze 100 Mcg/2 ml* Med 12/18/21 13:59 Discontinued ] 25 mcg IV Q4H PRN PRN Hydrocodone/APAP 5/325 [[place] 5/325 mg] Med 12/19/21 13:13 Discontinued 1 tab PO Q4H PRN PRN Hydromorphone 1 mg/1Ml Inj [Hydromorphone 1 mg/ml Med 12/18/21 17:12 Active Injection] 0.5 mg IV Q4H PRN PRN Ondansetron HCl 4 mg/2 ml [Zofran 4 MG/2 ML VIAL] Med 12/18/21 13:59 Active 4 mg IV Q6H PRN PRN Ondansetron ODT 4 MG [Zofran Odt 4 mg] Med 12/19/21 13:28 Active 4 mg PO Q4H PRN PRN Oxycodone/APAP 5 mg/325 mg [Percocet Tablet 5/325Mg Med 12/19/21 13:26 Ac tive *] 1 tab PO Q4H PRN PRN PANTOPRAZOLE 40 mg Tablet [Protonix 40MG Tablet] Med 12/18/21 18:00 Active 40 mg PO QAM Pantoprazole 40 mg [Protonix 40 mg IV] Med 12/19/21 10:00 Discontinued 40 mg IV Q24H10 Potassium Chloride 10 Meq Tab* [Klor Con 10 MEQ] Med 12/18/21 18:00 Active 40 meq PO DAILY Prochlorperazine 10 mg/2 ml [Compazine 10 MG/2 ML Med 12/18/21 17:12 Active ] 5 mg IV Q6H PRN PRN Sucralfate 1000 mg/10 ml [Carafate SUSPENSION 1000 Med 12/19/21 16:30 Active MG/10 ML] 1,000 mg PO AC OT Screen per Nursing Assess ONCE OT 12/18/21 14:41 Active PT Eval & Treat (MD Order) ONCE PT 12/19/21 10:58 Active PT Screen per Nursing Assess ONCE PT 12/18/21 14:41 Active Oxygen NASAL CANNULA 2 lpm RT 12/18/21 17:18 Active Pulse Oximetry ROUTINE RT 12/18/21 17:18 Active Respiratory Therapy Assessment ONCE RT 12/18/21 17:18 Completed Patient Care Notes (Last 24 hours) 12/19/21 13:23 Nursing Note by Tom Pereira ROUNDED WITH DR PUCKETT, DISCUSSED WITH PT ABOUT PO PAIN MEDS. PT AND HER DAUGHTER STATES THAT PT HAS HAD OXYCODONE IN THE PAST AND DOES FINE LONG SHES NOT GIVEN TOO HIGH OF A DOSE AND EATS BEFORE HAND. NEW ORDER FOR PERCOCET 5-325 Q4H PRN, ZOFRAN PO TO GIVE WITH PAIN MED Initialized on 12/19/21 13:23 - END OF NOTE 12/19/21 09:00 Nursing Note by Filomena Ross DR PHONED AND ORDERED TO CALL PAIN MANAGEMENT AND REQUEST THEM TO VIEW PATIENT CHART AND IF THEY CAN MAKE ANY RECOMMENDATIONS FOR PAIN D/T PT ALLERGIES AND NAUSEA WITH PAIN MEDICATIONS. NO NSAIDS. Initialized on 12/19/21 09:00 - END OF NOTE 12/18/21 17:42 Nursing Note by Nehal Eckert at this time pt doesn't want any pain medication for her headache. pt reports the pain meds are what is making her so nauseated. she just wants the nausea medication Initialized on 12/18/21 17:42 - END OF NOTE 12/18/21 17:06 Nursing Note by Nehal Eckert discussed pt "terrible headache", nausea despite zofram and elevated bp of 190/[address] puckett. new orders received for compazine 5mg iv q6hprn, cardizem 120mg po daily first dose now, ct head without contrast, bmp in am, dilaudid 0.5mg iv q4hprn (allergies reported to dr puckett and he verified to give dilaudid). change in care plan discuss with patient Initialized on 12/18/21 17:06 - END OF NOTE Code(s): S22.009A - UNSP FRACTURE OF UNSP THORACIC VERTEBRA, INIT FOR CLOS FX (2) Compression fracture Current Visit: Yes Status: Acute Code(s): T14.8 - OTHER INJURY OF UNSPECIFIED BODY REGION * DO NOT USE * (3) Fall Current Visit: Yes Status: Acute Code(s): W19.XXXA - UNSPECIFIED FALL, INITIAL ENCOUNTER (4) Intractable back pain Current Visit: Yes Status: Acute Code(s): M54.9 - DORSALGIA, UNSPECIFIED (5) Hypertension Current Visit: Yes Status: Chronic Qualifiers: Hypertension type: primary hypertension Qualified Code(s): I10 - Essential (primary) hypertension Code(s): I10 - ESSENTIAL (PRIMARY) HYPERTENSION
[2021-12-19] MEDS: Carafate SUSPENSION 1000 MG/10 ML PO SCH (17:05)
[2021-12-19] MEDS ORDERED: ZYLOPRIM 100 MG PO SCH (22:00)
[2021-12-19] MEDS: TYLENOL 325 MG PO PRN (23:20)
[2021-12-20] MEDS: TYLENOL 325 MG PO PRN (05:09)
[2021-12-20] MEDS: Carafate SUSPENSION 1000 MG/10 ML PO SCH (08:08)
[2021-12-20] MEDS: Hydromorphone 1 mg/ml Injection IV PRN (08:12)
[2021-12-20] MEDS: Cardizem CD 120 MG PO SCH (10:07)
[2021-12-20] MEDS: Protonix 40MG Tablet PO SCH (10:07)
[2021-12-20] MEDS: Lexapro 10 MG PO SCH (10:07)
[2021-12-20] MEDS: Klor Con 10 MEQ PO SCH (10:07)
[2021-12-20 12:14] VITALS: BP 146/80; PULSE 76; O2SAT 93
--- NOTE | 2021-12-20 19:14 | PCM.DS ---
Discharge Summary Date of Admission: 12/18/21 13:55 Admitting Physician: RACHEL MARTINEZ Consults: Consults on Case 12/19/21 09:01 Consult Physician ROUTINE Primary Care Provider: RACHEL MARTINEZ Allergies Allergies codeine Adverse Reaction (Verified 12/18/21 10:05) vomiting morphine Adverse Reaction (Verified 12/18/21 10:05) vomiting Hospital Summary - Hospital Course Hospital Course: Chief Complaint Diagnosis severe back pain, fall Allergies Allergy/AdvReac Type Severity Reaction Status Date / Time codeine AdvReac Verified 12/18/21 10:05 morphine AdvReac Verified 12/18/21 10:05 Vital Signs (Last 24 hours) Temp Pulse Resp BP Pulse Ox 12/20/21 12:00 98.8 F 76 18 146/80 93 L 12/20/21 07:38 98.3 F 72 18 141/73 92 L 12/20/21 04:00 98.0 F 68 17 137/81 94 L 12/19/21 23:32 98.2 F 68 18 174/86 90 L 12/19/21 20:11 91 L 12/19/21 19:48 98.7 F 60 16 117/64 91 L Home Medications Medication Instructions Recorded Confirmed Last Taken Type Allopurinol 100 mg [Zyloprim 100 mg PO QHS 12/18/21 12/18/21 12/17/21 22:00 History 100 mg] 100 PANTOPRAZOLE 40 mg Tablet 40 mg PO QAM 12/18/21 12/18/21 12/17/21 History [Protonix 40MG Tablet] Potassium Chloride [Klor-Con M10] 40 meq PO DAILY 12/18/21 12/18/21 12/17/21 History Current Medications Discontinued Medications Generic Name Dose Route Start Last Admin Trade Name Freq PRN Reason Stop Dose Admin Acetaminophen 650 mg 12/18/21 13:59 12/20/21 05:09 Acetaminophen 325 Mg Tablet PO 01/17/22 13:58 650 mg Q4H PRN PRN Administration PAIN AND/OR FEVER Hydrocodone Bitart/Acetaminophen 1 tab 12/19/21 13:13 Hydrocodone/Apap 5/325 Mg Tablet PO 12/24/21 13:12 Q4H PRN PRN PAIN Albuterol/Ipratropium 3 ml 12/18/21 13:59 Ipratropium/Albuterol Sulfate 3 Ml Ampul.Neb IH 01/17/22 13:58 Q4HPRN PRN SHORTNESS OF BREATH/WHEEZING Allopurinol 100 mg 12/19/21 22:00 12/18/21 23:38 Allopurinol 100 Mg Tablet PO 01/18/22 21:59 100 mg QHS SARAY Administration Allopurinol Confirm 12/18/21 23:36 Allopurinol 100 Mg Tablet Administered 12/18/21 23:37 Dose 100 mg .ROUTE .STK-MED ONE Diltiazem HCl 120 mg 12/18/21 17:12 12/20/21 10:07 Diltiazem Hcl 120 Mg Cap.Sr.24h PO 01/17/22 17:11 120 mg DAILY SARAY Administration Escitalopram Oxalate 10 mg 12/18/21 18:00 12/20/21 10:07 Escitalopram Oxalate 10 Mg Tablet PO 01/17/22 17:59 10 mg DAILY SARAY Administration Fentanyl Citrate 25 mcg 12/18/21 13:59 12/18/21 14:11 Fentanyl Citrate 100 Mcg/2 Ml* Vial IV 12/23/21 13:58 25 mcg Q4H PRN PRN Administration SEVERE PAIN Hydromorphone HCl 0.5 mg 12/18/21 17:12 12/20/21 08:12 Hydromorphone 1 Mg/1ml Inj 1 Mg/Ml Syringe IV 12/23/21 17:11 0.5 mg Q4H PRN PRN Administration PAIN Metoclopramide HCl 10 mg 12/18/21 10:05 12/18/21 10:11 Metoclopramide Hcl 10 Mg/2 Ml Vial IV 12/18/21 10:06 10 mg STAT ONE Administration Metoclopramide HCl Confirm 12/18/21 10:10 Metoclopramide Hcl 10 Mg/2 Ml Vial Administered 12/18/21 10:11 Dose 10 mg .ROUTE .STK-MED ONE Nalbuphine HCl 10 mg 12/18/21 10:06 12/18/21 10:11 Nalbuphine Hcl 10 Mg/Ml Ampul IV 12/18/21 10:07 10 mg STAT ONE Administration Nalbuphine HCl Confirm 12/18/21 10:10 Nalbuphine Hcl 10 Mg/Ml Ampul Administered 12/18/21 10:11 Dose 10 mg .ROUTE .STK-MED ONE Ondansetron HCl 4 mg 12/18/21 13:59 12/19/21 09:01 Ondansetron Hcl 4 Mg/2 Ml Vial IV 01/17/22 13:58 4 mg Q6H PRN PRN Administration NAUSEA/VOMITING Ondansetron HCl 4 mg 12/19/21 13:28 12/19/21 18:25 Zofran 4 Mg/Udtablet Orally Disintegrating PO 01/18/22 13:27 4 mg Q4H PRN PRN Administration NAUSEA/VOMITING Oxycodone/Acetaminophen 1 tab 12/19/21 13:26 12/19/21 18:25 Oxycodone Hcl/Apap 5 Mg/325 Mg Tablet PO 12/24/21 13:25 1 tab Q4H PRN PRN Administration PAIN Pantoprazole Sodium 40 mg 12/19/21 10:00 Pantoprazole 40 Mg Vial IV 01/18/22 09:59 Q24H10 SARAY Pantoprazole Sodium 40 mg 12/18/21 18:00 12/20/21 10:07 Protonix (Pantoprazole) 40 Mg Tablet PO 01/17/22 17:59 40 mg QAM SARAY Administration Potassium Chloride 40 meq 12/18/21 18:00 12/20/21 10:07 Potassium Chloride 10 Meq Tablet PO 01/17/22 17:59 40 meq DAILY SARAY Administration Prochlorperazine Edisylate 5 mg 12/18/21 17:12 12/19/21 04:46 Prochlorperazine Edisylate 10 Mg/2 Ml Vial IV 01/17/22 17:11 5 mg Q6H PRN PRN Administration NAUSEA/VOMITING Sucralfate 1,000 mg 12/19/21 16:30 12/20/21 08:08 Sucralfate 1000 Mg/10 Ml Suspension PO 01/18/22 16:29 1,000 mg AC SARAY Administration Intake & Output (Last 24 hours) 12/18/21 12/19/21 12/20/21 12/21/21 11:59 11:59 11:59 11:59 Intake Total 640 960 240 Output Total 300 850 Balance 340 110 240 Weight 45.813 kg 44.9 kg 46.7 kg Orders (Last 24 hours) Category Date Time Status Discharge Routine Discharge 12/20/21 Ordered Allopurinol 100 mg [Zyloprim 100 mg] Med 12/19/21 22:00 Discontinued 100 mg PO QHS RT Miscellaneous Order ROUTINE RT 12/20/21 10:08 Completed Patient Care Notes (Last 24 hours) 12/20/21 12:28 Nursing Note by Tracey Morillo Notified [facility] that patient will d/c today. Initialized on 12/20/21 12:28 - END OF NOTE 12/20/21 12:28 (created 12/20/21 12:40) Nursing Note by Tracey Morillo Faxed d/c records to [facility] Initialized on 12/20/21 12:40 - END OF NOTE 12/20/21 12:24 Case Management Note by Ivania Marroquin S/W DAUGHTER COOKIE REGARDING DC- SHE REPORTS SOMEONE WILL STAYING WITH HER ALL THE TIME FOR THE NEXT WEEK OR SO. SHE IS AWARE HHC HAS BEEN ARRANGED FOR. PATIENT HAS WALKER AT HOME ALREADY. DAUGHTER GIVEN VERBAL INSTRUCTIONS REGARDING OXYGEN SET UP. SHE VERIFIED UNDERSTANDING OF ALL INFORMATION GIVEN. DAUGHTER AND PATIENT DENY ANY OTHER NEW NEEDS AT THIS TIME Initialized on 12/20/21 12:24 - END OF NOTE 12/20/21 11:21 Case Management Note by Ivania Marroquin ORDER FOR HOME OXYGEN SUBMITTED TO [facility] [place], DELIVERY INSTRUCTIONS ADDED TO PATIENT'S DC INSTRUCTIONS Initialized on 12/20/21 11:21 - END OF NOTE 12/20/21 10:31 Physical Therapy Note by [email or web address] PT. SEEN BY P.T. THIS A.M. REPORTS T-SPINE AND L RIB PN AT 04/17. PT. AGREEABLE TO WALK W/ P.T. IN BED UPON P.T. ARRIVAL TO ROOM. NO O2 IN PLACE; PT. BREATHING ON RA. 89% WHILE TALKING ON PHONE ON RA. PERFORMED SUPINE TO SIT W/ CGA W/ HOB ELEVATED. SIT TO STAND PERFORMED W/ CGA W/ ROLLER WALKER. PT. AMBULATED ~ 80' W/ 2 REST BREAKS TO CHECK SATS. SATS DROPPED TO 87% ON RA DURING WALK. PLACED PT. ON 2L O2 AND SATS INCREASED TO 93-94%. PT. AMBULATED W/ RW W/ CGA. PT. FEARFUL OF FALLING AGAIN. RECOMMEND SHE AMBULATE ONLY WHEN FAMILY OR HHC PRESENT AND USE RW AT THIS TIME. WILL CONT. P.T. UNTIL D/C. Initialized on 12/20/21 10:31 - END OF NOTE 12/20/21 10:25 Respiratory Note by Mulu Ott Patient's O2 sat on room air at rest is 91% on RA. Patient ambulated on room air and O2 sat decreased to 87% on RA with ambulation. Patient placed on O2 at 2lpm per NC. and O2 sat increased to 94% on 2lpm per NC with ambulation Initialized on 12/20/21 10:25 - END OF NOTE 12/20/21 10:09 Case Management Note by Ivania Marroquin [facility] HAS BEEN SET UP. THEY WILL NEED NOTIFIED AT TIME OF DC AT [phone]. THEY WILL NEED FAXED THE DC INSTRUCTIONS, DC MED LIST, DC SUMMARY (IF AVAILABLE) TO [phone] Initialized on 12/20/21 10:09 - END OF NOTE 12/20/21 09:59 Case Management Note by María Cabrera SPOKE WITH HSANNAN @ PAIN MANAGEMENT. REPORTS THAT SHE HAD SPOKEN WITH DR. LEONARD AND THEIR RECOMMENDATION FOR PAIN MED WOULD BE [place]. DISCUSSED THAT WE HAD TRIED PERCOCET AND THAT IT MADE HER FEEL ANXIOUS. ALLERGIES TO CODEINE AND MORPHINE, AND REPORTS SENSITIVE TO OTHER PAIN MEDS, IE: ANXIOUS, NAUSEA. REFERRAL FAXED TO PAIN MANAGEMENT FOR FOLLOWUP. THEY WILL CALL HER. NURSE, SHANNAN, REPORTS THAT WHEN SHE CAN TALK TO DR. LEONARD REGARDING ALTERNATE MED FOR PAIN SHE WILL CALL US BACK FOR ANY FURTHER RECOMMENDATIONS. Initialized on 12/20/21 09:59 - END OF NOTE 12/20/21 06:46 Nursing Note by Gayatri Colindres Patient became suspicious of nursing staff and "paranoid" 12/19/21 after receiving percocet. Because of this, tylenol given for pain control throughout the night. Patient reported that tylenol controlled her pain well over night and that she slept well. Initialized on 12/20/21 06:46 - END OF NOTE 12/19/21 23:15 Nursing Note by Gloria Lopez Held allopurinol d/t suspicious behavior. pt believes the nurses are "drugging her, giving her the wrong medication and giving her too much". Told nurse "I do not want anything else" Initialized on 12/19/21 23:15 - END OF NOTE - Vitals & Intake/Output Vital Signs: Vital Signs Temperature 98.8 F 12/20/21 12:00 Pulse Rate 76 12/20/21 12:00 Respiratory Rate 18 12/20/21 12:00 Blood Pressure 146/80 12/20/21 12:00 O2 Sat by Pulse Oximetry 93 L 12/20/21 12:00 Intake & Output: Intake & Output 12/18/21 12/19/21 12/20/21 12/21/21 11:59 11:59 11:59 11:59 Intake Total 640 960 240 Output Total 300 850 Balance 340 110 240 Weight 45.813 kg 44.9 kg 46.7 kg - Lab Result Diagrams: 12/18/21 11:43 12/19/21 04:30 - Procedures and Test Procedures and Tests throughout Hospitalization: Therapy Orders & Screens 12/18/21 14:41 OT Screen per Nursing Assess ONCE Comment: Protocol Order Physician Instructions: Greater than 3 points order OT Admission Screening Reason For Exam: Triggered on Admission Diagnosis: Thoracic vertebral body fracture Open Wound/Cellutlitis/Pressure Ulcers: No Acute Fx/ORIF/Change in wt bearing status: Yes Severe MUSCULOSKELETAL pain: Yes ADL Dysfunction: Yes Acute CVA w/Hemiparesis/Hemiplegia: No Decreased Functional Mobility/Strength: Yes Sprain/Strain: No Acute Post-op Mobility Dysfunction: No Total Points: 14 PT Screen per Nursing Assess ONCE Comment: Protocol Order Physician Instructions: Greater than 3 points order PT Admission Screenin Reason For Exam: Triggered on Admission Diagnosis: Thoracic vertebral body fracture Open Wound/Cellutlitis/Pressure Ulcers: No Acute Fx/ORIF/Change in wt bearing status: Yes Severe MUSCULOSKELETAL pain: Yes ADL Dysfunction: Yes Acute CVA w/Hemiparesis/Hemiplegia: No Decreased Functional Mobility/Strength: Yes Sprain/Strain: No Acute Post-op Mobility Dysfunction: No Total Points: 14 12/18/21 17:18 Oxygen NASAL CANNULA 2 lpm Comment: Diagnosis: Thoracic vertebral body fracture Respiratory Therapy Assessment ONCE Comment: Diagnosis: Thoracic vertebral body fracture 12/19/21 10:58 PT Eval & Treat ( Order) ONCE Reason for Eval:: FALL AT HOME A FEW DAYS AGO WITH WORSENING BACK PAIN Diagnosis: Thoracic vertebral body fracture 12/20/21 10:08 RT Miscellaneous Order ROUTINE Comment: Physician Instructions: Reason For Exam: WEAN OFF OXYGEN- PATIENT DOES NOT WEAR AT HOME Diagnosis: severe back pain, fall Discharge Exam General Appearance: no apparent distress, alert Neurologic Exam: alert, oriented x 3, cooperative, normal mood/affect, nml cerebellar function, sensation nml, No motor deficits Eye Exam: PERRL, EOMI, eyes nml inspection Ears, Nose, Throat Exam: normal ENT inspection, pharynx normal, moist mucous membranes Neck Exam: normal inspection, non-tender, supple, full range of motion Respiratory Exam: normal breath sounds, lungs clear, No respiratory distress Cardiovascular Exam: regular rate/rhythm, normal heart sounds Gastrointestinal/Abdomen Exam: soft, No tenderness, No mass Pelvic Exam: deferred Rectal Exam: deferred Back Exam: normal inspection, normal range of motion, No CVA tenderness, No v ertebral tenderness Extremity Exam: normal inspection, normal range of motion Skin Exam: normal color, warm, dry Final Diagnosis/Problem List - Final Discharge Diagnosis/Problem (1) Closed fracture of thoracic vertebral body Status: Acute Code(s): S22.009A - UNSP FRACTURE OF UNSP THORACIC VERTEBRA, INIT FOR CLOS FX (2) Compression fracture Status: Acute Code(s): T14.8 - OTHER INJURY OF UNSPECIFIED BODY REGION * DO NOT USE * (3) Fall Status: Acute Code(s): W19.XXXA - UNSPECIFIED FALL, INITIAL ENCOUNTER (4) Intractable back pain Status: Acute Code(s): M54.9 - DORSALGIA, UNSPECIFIED (5) Hypertension Status: Chronic Code(s): I10 - ESSENTIAL (PRIMARY) HYPERTENSION - Discharge Discharge Date: 12/20/21 Disposition: Home Health @ Other In State Condition: Stable Prescriptions: Continue Escitalopram Oxalate 10 mg [Lexapro 10 MG] 10 mg PO DAILY Potassium Chloride [Klor-Con M10] 40 meq PO DAILY PANTOPRAZOLE 40 mg Tablet [Protonix 40MG Tablet] 40 mg PO QAM Allopurinol 100 mg [Zyloprim 100 mg] 100 mg PO QHS Instructions: Preventing Falls in the Older Adult, Oxygen Therapy, Adult (DC) Additional Instructions: [facility] WILL CALL YOU TO ARRANGE YOUR FIRST VISIT. WEAR 2L/NC AT HOME AT ALL TIMES. CALL [facility] WHEN YOU GET HOME AT [phone] SO THEY CAN DELIVER YOUR HOME CONCENTRATOR Follow up with: PAVEL LEONARD MD [CONSULTING PHYSICIAN] - (Dr. Leonard's office will call patient to schedule.) RACHEL MARTINEZ MD [Primary Care Provider] - 12/28/21 11:15 am ([place]) Forms: Discharge Instructions
== END 2021-12-20 12:35 | disposition home health service (06) ==
LOC: ED 09:46 → MED SURG 13:55
PROVIDERS: ADMIT General Practice; ATTEND General Practice
DX: S22.009A Unspecified fracture of unspecified thoracic vertebra, initial encounter for closed fracture (principal); W19.XXXA Unspecified fall, initial encounter; M54.9 Dorsalgia, unspecified; J44.9 Chronic obstructive pulmonary disease, unspecified; I10 Essential (primary) hypertension; Z91.81 History of falling; Z79.899 Other long term (current) drug therapy; Z20.828 Contact with and (suspected) exposure to other viral communicable diseases
CPT/HCPCS: 0241U; 36415; 70450; 72128; 72131; 80048; 80053; 81015; 84134; 85025; 94760; 96374; 96375; 97161; 97530; 99285; G0378; J1170; J2300; J2405; J3010; Q0162; A9270-GY

== ENCOUNTER 2022-01-01 12:13 | Emergency (ER) | payer MEDICARE, OTHER ==
--- NOTE | 2022-01-01 12:23 | ERPHSYRPT ---
- History of Present Illness Time Seen by Provider: 01/01/22 12:23 Source: patient, EMS Exam Limitations: no limitations Patient Subjective Stated Complaint: " I have horrible pain in my head and my neck. They said my blood pressure is high". Triage Nursing Assessment: Pt presents to ER with complaints of headache/neck pain and HTN. Started this AM after awakening. Pt is alert and oriented x 3. Rates pain 10/10 scale. Skin is pink, warm, and dry. Pt respirations are easy. Pt appears in pain and is HTN upon triage. Pt comes from home residence were she resides alone. Ambulance gave her 4mg Zofran and started 20g IV in LAC. Pt has nausea and dry heaves. Pt has healing fractures in ribs from recent frequent falls. Physician History: This is an 86 y/o white female brought into ED via ambulance because of headache and neck pain which prompted a bp reading. it was 230/140. pt took extra strength tylenol. pt has a h/o cva, chf, htn, copd, and depression. pts pcp is dr. martinez. symptoms were sudden in onset and began this am. pt does not do well with any narcotics they make her sick with headache and vomiting. although she is on tramadol. pt denies head injury Timing/Duration: today Severity: moderate Associated Symptoms: nausea, vomiting, other (headache), No shortness of breath, No chest pain Allergies/Adverse Reactions: codeine Adverse Reaction (Verified 01/01/22 12:23) vomiting fentanyl Adverse Reaction (Verified 01/01/22 12:23) morphine Adverse Reaction (Verified 01/01/22 12:23) vomiting Home Medications: Escitalopram Oxalate 10 mg [Lexapro 10 MG] 10 mg PO DAILY 10/13/19 [History] Allopurinol 100 mg [Zyloprim 100 mg] 100 mg PO QHS 12/18/21 [History] PANTOPRAZOLE 40 mg Tablet [Protonix 40MG Tablet] 40 mg PO QAM 12/18/21 [History] Potassium Chloride [Klor-Con M10] 40 meq PO DAILY 12/18/21 [History] Acetaminophen 325 mg [Tylenol 325 mg] 650 mg PO Q8H PRN PRN 01/01/22 [History] Gabapentin 100 mg [Neurontin 100 MG] 100 mg PO DAILY 01/01/22 [History] Tramadol HCl 50 mg [Ultram 50 mg] 50 mg PO DAILY 01/01/22 [History] Hx Tetanus, Diphtheria Vaccination/Date Given: Yes Hx Influenza Vaccination/Date Given: Yes Hx Pneumococcal Vaccination/Date Given: Yes Immunizations Up to Date: Yes Travel Risk - International Travel Have you traveled outside of the country in past 3 weeks: No - Coronavirus Screening Are you exhibiting any of the following symptoms?: No - Vaccine Status Have you recieved a Covid-19 vaccination: Yes Network Development Coordinator: Moderna - Vaccination Dates Date of 2cond Vaccination (if applicable): 2020 - Review of Systems Constitutional: No Symptoms Eyes: No Symptoms Ears, Nose, & Throat: No Symptoms Respiratory: No Symptoms Cardiac: No Symptoms Abdominal/Gastrointestinal: No Symptoms Genitourinary Symptoms: No Symptoms Musculoskeletal: Neck Pain, No Fall Skin: No Symptoms Neurological: Headache Psychological: No Symptoms Endocrine: No Symptoms Hematologic/Lymphatic: No Symptoms Immunological/Allergic: No Symptoms All Other Systems: Reviewed and Negative - Past Medical History Pertinent Past Medical History: Yes Neurological History: Stroke ENT History: No Pertinent History Cardiac History: Arrhythmia, Hypertension Respiratory History: CHF, COPD, Pneumonia, Pulmonary Embolism Endocrine Medical History: No Pertinent History Musculoskeletal History: No Pertinent History, Osteoarthritis GI Medical History: GERD History: No Pertinent History Psycho-Social History: Depression Female Reproductive Disorders: No Pertinent History Other Medical History: 'SPOT ON LT LUNG',. prolapse heart valve. 5 BROK[address]ES IN SPINE. esophageal hernia - Past Surgical History Past Surgical History: Yes Neuro Surgical History: No Pertinent History Cardiac: Cardiac Catheterization Respiratory: No Pertinent History Gastrointestinal: Appendectomy, Cholecystectomy Genitourinary: No Pertinent History Musculoskeletal: No Pertinent History Female Surgical History: Hysterectomy - Social History Smoking Status: Never smoker Exposure to second hand smoke: No Drug Use: none Patient Lives Alone: No Significant Family History: heart disease, hypertension - Nursing Vital Signs Nursing Vital Signs: Initial Vital Signs Temperature 97.9 F 01/01/22 12:14 Pulse Rate 97 H 01/01/22 12:14 Respiratory Rate 18 01/01/22 12:14 Blood Pressure 187/129 01/01/22 12:14 O2 Sat by Pulse Oximetry 95 01/01/22 12:14 Pain Scale Pain Intensity 0 - Physical Exam General Appearance: mild distress, alert, anxiety Eye Exam: PERRL/EOMI, eyes nml inspection Ears, Nose, Throat Exam: normal ENT inspection, moist mucous membranes Neck Exam: normal inspection, non-tender, supple, full range of motion Respiratory Exam: normal breath sounds, lungs clear, airway intact, No chest tenderness, No respiratory distress Cardiovascular Exam: regular rate/rhythm, normal heart sounds, normal peripheral pulses Gastrointestinal/Abdomen Exam: soft, normal bowel sounds, No tenderness, No guarding, No rebound Pelvic Exam: not done Rectal Exam: not done Back Exam: normal inspection, normal range of motion, No CVA tenderness, No vertebral tenderness Extremity Exam: normal inspection, normal range of motion, pelvis stable Neurologic Exam: alert, oriented x 3, cooperative, cigar head piercer II-XII nml as tested, sensation nml, No intoxicated appearance, No slurred speech Skin Exam: normal color, warm, dry Lymphatic Exam: No adenopathy SpO2 Interpretation: normal SpO2: 95 O2 Delivery: Room Air - Course Nursing assessment & vital signs reviewed: Yes EKG Interpreted by Me: RATE (99), Sinus Rhythm, LAFB, prolonged QT interval, NORMAL QRS, Other (no acute ischemia; no sig change from comparison ekg dated 02/05/17) Ordered Tests: Active Orders 24 hr Category Date Time Status EKG-ER Only STAT Care 01/01/22 12:23 Active NPO (ED) STAT Care 01/01/22 12:23 Active Pulse Oximetry (ED) STAT Care 01/01/22 12:23 Active HEAD WITHOUT CONTRAST [CT] Stat Exams 01/01/22 12:23 Completed CBC W DIFF Stat Lab 01/01/22 13:05 Completed CMP Stat Lab 01/01/22 13:05 Completed UA W/RFX CULTURE Stat Lab 01/01/22 12:23 Results Medication Summary Discontinued Medications Generic Name Dose Route Start Last Admin Trade Name Freq PRN Reason Stop Dose Admin Labetalol HCl 10 mg 01/01/22 12:25 01/01/22 12:33 Labetalol Hcl 20 Mg/4 Ml Disp.Syringe IV 01/01/22 12:26 10 mg STAT ONE Administration Labetalol HCl Confirm 01/01/22 12:29 Labetalol Hcl 20 Mg/4 Ml Disp.Syringe Administered 01/01/22 12:30 Dose 20 mg IV .STK-MED ONE Lorazepam 0.5 mg 01/01/22 12:25 01/01/22 12:33 Lorazepam 2 Mg/1 Ml 2 Mg Vial IV 01/01/22 12:26 0.5 mg STAT ONE Administration Lorazepam Confirm 01/01/22 12:28 Lorazepam 2 Mg/1 Ml 2 Mg Vial Administered 01/01/22 12:29 Dose 2 mg .ROUTE .STK-MED ONE Lab/Rad Data: Laboratory Result Diagrams 01/01/22 13:05 01/01/22 13:05 Laboratory Results 01/01/22 01/01/22 01/01/22 Range/Units 13:05 13:05 12:23 WBC 7.4 (4.0-10.5) K/mm3 RBC 3.58 L (4.1-5.4) M/mm3 Hgb 11.6 L (12.0-16.0) gm/dl Hct 36.5 (35-47) % MCV 102.0 H (78-100) fl MCH 32.4 H (26-32) pg MCHC 31.8 L (32-36) g/dl RDW 14.5 H (11.5-14.0) % Plt Count 342 (150-450) K/mm3 MPV 9.1 (7.5-11.0) fl Gran % 69.8 H (36.0-66.0) % Eos # (Auto) 0.14 (0-0.5) Absolute Lymphs (auto) 1.48 (1.0-4.6) Absolute Monos (auto) 0.60 (0.0-1.3) Lymphocytes % 19.9 L (24.0-44.0) % Monocytes % 8.1 (0.0-12.0) % Eosinophils % 1.9 (0.00-5.0) % Basophils % 0.3 (0.0-0.4) % Absolute Granulocytes 5.20 (1.4-6.9) Basophils # 0.02 (0-0.4) Sodium 138 (137-145) mmol/L Potassium 4.1 (3.5-5.1) mmol/L Chloride 103 (98-107) mmol/L Carbon Dioxide 25 (22-30) mmol/L Anion Gap 14.0 (5-15) MEQ/L BUN 15 (7-17) mg/dL Creatinine 0.92 (0.52-1.04) mg/dL Estimated GFR > 60.0 ML/MIN Glucose 114 H (74-106) mg/dL Calcium 9.5 (8.4-10.2) mg/dL Total Bilirubin 0.70 (0.2-1.3) mg/dL AST 26 (14-36) U/L ALT 11 (0-35) U/L Alkaline Phosphatase 99 (38-126) U/L Serum Total Protein 6.5 (6.3-8.2) g/dL Albumin 4.0 (3.5-5.0) g/dL Urinalys Dipstick Clnc Pending Urine Color YELLOW (YELLOW) Urine Appearance CLEAR (CLEAR) Urine pH 7.0 (5-6) Ur Specific Ducor 1.020 (1.005-1.025) POC Urine Protein Conf 30 (Negative) Urine Ketones NEGATIVE (NEGATIVE) Urine Nitrite NEGATIVE (NEGATIVE) Urine Bilirubin NEGATIVE (NEGATIVE) Urine Urobilinogen 0.2 (0-1) mg/dL Urine Leukocytes NEGATIVE (NEGATIVE) Urine WBC (Auto) NONE (0-5) /HPF Urine RBC (Auto) NONE (0-2) /HPF U Epithel Cells (Auto) NONE (FEW) /HPF Urine Bacteria (Auto) NONE (NEGATIVE) /HPF Urine RBC NEGATIVE (0-5) Gume/ul Urine Mucus (Auto) SLIGHT (NEGATIVE) /HPF Ur Culture Indicated? NO Urine Glucose NEGATIVE (NEGATIVE) mg/dL - Progress Progress: improved, pain not gone completely, re-examined Progress Note: 01/01/22 13:28 ct head without shows a stable non acute senile brain. there is an incidental remote lacunar infarct right basal ganglia. there is no intracranial hemorrhage 01/01/22 13:45 pt states she is feeling much better and her headache is nearly gone Counseled pt/family regarding: lab results, diagnosis, need for follow-up, rad results - Departure Departure Disposition: Home Clinical Impression: Headache, Hypertensive urgency Condition: Stable Critical Care Time: Yes Critical Care Time(excluding separately billable procedures): Critical 30-74 mins (30 minutes) Referrals: RACHEL MARTINEZ MD [Primary Care Provider] - Follow up/PCP as directed Additional Instructions: Take your medications as prescribed. follow up with primary doctor and pain specialist for further evaluation and management Prescriptions: Tramadol HCl 50 mg [Ultram 50 mg] 50 mg PO BID #12 tablet
[2022-01-01] MEDS ORDERED: TRANDATE 20 MG/4 ML SYRINGE IV ONE ×2 (12:25→12:29)
[2022-01-01] MEDS ORDERED: Ativan 2 MG/1 ML VIAL IV ONE (12:25)
[2022-01-01] MEDS ORDERED: Ativan 2 MG/1 ML VIAL ONE (12:28)
--- NOTE | 2022-01-01 13:17 | XRAY ---
Indication: Headache. Hypertension. Multiple contiguous axial images obtained through the head without contrast. Comparison: December 18, 2021. Stable age-appropriate global atrophy, moderate periventricular degenerative micro-ischemia bilaterally, and remote lacunar infarct right basal ganglia. No acute intracranial hemorrhage, abnormal extra-axial fluid collection, or mass effect. Fourth ventricle is midline without hydrocephalus. Bony calvarium intact. Visualized paranasal sinuses and mastoid air cells are clear. Impression: Stable nonacute senile brain again with incidental remote lacunar infarct right basal ganglia.
[2022-01-01 13:22] LABS: ALKALINE PHOSPHATASE 99 U/L (38-126); BLOOD UREA NITROGEN 15 mg/dL (7-17); CHLORIDE 103 mmol/L (98-107); Calcium 9.5 mg/dL (8.4-10.2); Carbon Dioxide 25 mmol/L (22-30); Creatinine 1 0.92 mg/dL (0.52-1.04); EST GLOMERULAR FILTRATION RATE > 60.0 ML/MIN; Glucose 114 mg/dL (74-106); Potassium 4.1 mmol/L (3.5-5.1); SGOT/AST 26 U/L (14-36); SGPT/ALT 11 U/L (0-35); SODIUM 138 mmol/L (137-145); Total Protein 6.5 g/dL (6.3-8.2)
[2022-01-01 13:29] LABS: Basophil (Absolute #) 0.02 (0-0.4); Eosinophil % 1.9 % (0.00-5.0); Eosinophil (Absolute #) 0.14 (0-0.5); Hematocrit 36.5 % (35-47); Hemoglobin 11.6 gm/dl (12.0-16.0); Lymphocyte (Absolute #) 1.48 (1.0-4.6); Lymphocytes % 19.9 % (24.0-44.0); Mean Corpuscular Hemoglobin 32.4 pg (26-32); Mean Corpuscular Hgb Concent. 31.8 g/dl (32-36); Mean Platelet Volume 9.1 fl (7.5-11.0); Monocytes % 8.1 % (0.0-12.0); Neutrophil % 69.8 % (36.0-66.0); Platelet Count 342 K/mm3 (150-450); Red Blood Count 3.58 M/mm3 (4.1-5.4); Red Cell Distribution Width 14.5 % (11.5-14.0); White Blood Count 7.4 K/mm3 (4.0-10.5)
[2022-01-01 15:59] LABS: Mucus SLIGHT /HPF (NEGATIVE)
[2022-01-01 16:00] LABS: Appearance CLEAR (CLEAR); Bilirubin NEGATIVE (NEGATIVE); Glucose NEGATIVE (NEGATIVE); Ketones NEGATIVE (NEGATIVE)
[2022-01-01 16:01] LABS: Nitrite NEGATIVE (NEGATIVE); Protein,Urine Dip 30 (Negative); RBC NEGATIVE Ery/ul (0-5); Urine Cultured Indicated? NO; Urobilinogen 0.2 mg/dL (0-1)
[2022-01-01 16:08] VITALS: BP 144/94; PULSE 82; O2SAT 96
[2022-01-01 16:09] LABS: Dipstick done @ ? MAIN LAB
== END 2022-01-01 16:18 | disposition home or self-care (01) ==
LOC: ED 12:13
DX: I16.0 Hypertensive urgency (principal); I10 Essential (primary) hypertension; R51.9 Headache, unspecified; M54.2 Cervicalgia; R11.2 Nausea with vomiting, unspecified; J44.9 Chronic obstructive pulmonary disease, unspecified; K21.9 Gastro-esophageal reflux disease without esophagitis; Z79.891 Long term (current) use of opiate analgesic; Z79.899 Other long term (current) drug therapy
CPT/HCPCS: 36000; 36415; 70450; 80053; 81015; 85025; 93005; 94760; 96374; 99284; 99291; J2060

== ENCOUNTER 2022-01-21 10:32 | Emergency (ER) | payer MEDICARE, OTHER ==
--- NOTE | 2022-01-21 11:27 | ERPHSYRPT ---
- History of Present Illness Source: patient Exam Limitations: no limitations Patient Subjective Stated Complaint: " My hand is broke and the pain is so bad. It's in my right hand and into my arm. I took a gabapentin last night but it didn't help much. I hurt it after I fell on from sitting and tried to catch myself with my hand." Triage Nursing Assessment: Pt presents to ER and is wheeled back to ER Room 9. Pt is complainig of right hand/arm pain. States injuried hand while trying to catch herself when she was falling on 01/17/22. Pt is alert and oriented x 3. Skin is pink, warm, and dry. Limited ROM of right hand, slight swelling. Pt came to ER with arm in sling. Pt states pain is 10/10 scale - appears to be hurting. Respirations are easy. Physician History: 86 yo WF slipped and fell at home on 01/17/22 injuring R hand/wrist. Pt is R handed and denies other injuries. She denies LOC/Head injury/C,T, and L-spine pain/Chest pain/hip pain/Lower extremity pain. Occurred: other (01/17/22) Method of Injury: fell Quality: constant Severity of Pain-Max: moderate Severity of Pain-Current: moderate Extremities Pain Location: wrist: right, hand: right Modifying Factors: Improves With: movement Associated Symptoms: none Allergies/Adverse Reactions: codeine Adverse Reaction (Verified 01/21/22 10:42) vomiting fentanyl Adverse Reaction (Verified 01/21/22 10:42) morphine Adverse Reaction (Verified 01/21/22 10:42) vomiting Home Medications: Escitalopram Oxalate 10 mg [Lexapro 10 MG] 10 mg PO DAILY 10/13/19 [History] Allopurinol 100 mg [Zyloprim 100 mg] 100 mg PO QHS 12/18/21 [History] PANTOPRAZOLE 40 mg Tablet [Protonix 40MG Tablet] 40 mg PO QAM 12/18/21 [History] Potassium Chloride [Klor-Con M10] 40 meq PO DAILY 12/18/21 [History] Acetaminophen 325 mg [Tylenol 325 mg] 650 mg PO Q8H PRN PRN 01/01/22 [History] Gabapentin 100 mg [Neurontin 100 MG] 100 mg PO DAILY 01/01/22 [History] Hx Tetanus, Diphtheria Vaccination/Date Given: Yes Hx Influenza Vaccination/Date Given: Yes Hx Pneumococcal Vaccination/Date Given: Yes Immunizations Up to Date: Yes Travel Risk - International Travel Have you traveled outside of the country in past 3 weeks: No - Coronavirus Screening Are you exhibiting any of the following symptoms?: No Close contact with a COVID-19 positive Pt in past 14-21 Days: No - Vaccine Status Have you recieved a Covid-19 vaccination: Yes Evaluation Analyst: Moderna - Vaccination Dates Date of 2cond Vaccination (if applicable): 2020 - Review of Systems Constitutional: No Symptoms Eyes: No Symptoms Ears, Nose, & Throat: No Symptoms Respiratory: No Symptoms Cardiac: No Symptoms Abdominal/Gastrointestinal: No Symptoms Genitourinary Symptoms: No Symptoms Skin: No Symptoms Neurological: No Symptoms Psychological: No Symptoms Endocrine: No Symptoms Hematologic/Lymphatic: No Symptoms Immunological/Allergic: No Symptoms - Past Medical History Pertinent Past Medical History: Yes Neurological History: Stroke ENT History: No Pertinent History Cardiac History: Arrhythmia, Hypertension Respiratory History: CHF, COPD, Pneumonia, Pulmonary Embolism Endocrine Medical History: No Pertinent History Musculoskeletal History: No Pertinent History, Osteoarthritis GI Medical History: GERD History: No Pertinent History Psycho-Social History: Depression Female Reproductive Disorders: No Pertinent History Other Medical History: 'SPOT ON LT LUNG',. prolapse heart valve. 5 BROKEN PLACES IN [place]. esophageal hernia - Past Surgical History Past Surgical History: Yes Neuro Surgical History: No Pertinent History Cardiac: Cardiac Catheterization Respiratory: No Pertinent History Gastrointestinal: Appendectomy, Cholecystectomy Genitourinary: No Pertinent History Musculoskeletal: No Pertinent History Female Surgical History: Hysterectomy - Social History Smoking Status: Never smoker Exposure to second hand smoke: No Drug Use: none Patient Lives Alone: Yes Significant Family History: heart disease, hypertension - Nursing Vital Signs Nursing Vital Signs: Initial Vital Signs Temperature 98.4 F 01/21/22 10:36 Pulse Rate 98 H 01/21/22 10:36 Respiratory Rate 18 01/21/22 10:36 Blood Pressure 156/92 01/21/22 10:36 O2 Sat by Pulse Oximetry 97 01/21/22 10:36 Pain Scale Pain Intensity 10 Hypertensive - Physical Exam General Appearance: no apparent distress Eyes, Ears, Nose, Throat Exam: normal ENT inspection, TMs normal, pharynx normal, moist mucous membranes Neck Exam: normal inspection, non-tender, supple, full range of motion, No Brudzinski, No Kernig's, No meningismus, No carotid bruit Cardiovascular/Respiratory Exam: chest non-tender, normal breath sounds, regular rate/rhythm, heart sounds normal Abdominal Exam: non-tender, soft Back Exam: normal inspection, normal range of motion, No CVA tenderness, No vertebral tenderness Shoulder Exam: normal inspection, non-tender, no evidence of injury Elbow/Forearm Exam: normal inspection, non-tender, no evidence of injury Wrist Exam: swelling (R wrist w edema and TTP/Good radial pulse, distal sensation, and capillary return) Hand Exam: swelling (Edema proximal hand area/Mild TTP/Good radial pulse, distal senssation, and capillary return) Neuro/Tendon Exam: normal sensation, normal motor functions, normal tendon functions, responds to pain, no evidence tendon injury, No motor deficit, No sensory deficit Mental Status Exam: alert, oriented x 3, cooperative Skin Exam: normal color, warm SpO2 Interpretation: normal SpO2: 97 O2 Delivery: Room Air - Radiology Exams Hand X-ray Interpretation: Discussed w/ radiologist (R hand-Old 5th metacarpal fx/DDD/Nothing acute) Wrist X-ray Interpretation: Discussed w/ radiologist (R wrist-no fx) Ordered Tests: Active Orders 24 hr Category Date Time Status Vazquez Bandage Application -[facility] STAT Care 01/21/22 12:11 Completed HAND (MINIMUM 3 VIEWS) Stat Exams 01/21/22 11:48 Completed WRIST (MIN 3 VIEWS) Stat Exams 01/21/22 Completed - Progress Progress: improved Progress Note: 01/21/22 12:11 Vazquez wrap R hand/wrist per nursing/NVI Counseled pt/family regarding: diagnosis, need for follow-up, rad results - Departure Departure Disposition: Home Clinical Impression: Contusion of hand, Contusion of wrist, right Condition: Stable Critical Care Time: No Referrals: RACHEL MARTINEZ MD [Primary Care Provider] - Follow up/PCP as directed Additional Instructions: Vazquez wrap for 3-4 days Motrin/Tylenol for pain Follow up with Dr. Martinez in 2-3 days Return to ER as needed
--- NOTE | 2022-01-21 11:59 | XRAY ---
Indication: Pain and limited range of motion following fall. Comparison: None 3 view right hand demonstrates osteopenia, mild/moderate degenerative changes all IP joints, mild 1st metacarpal multangular degenerative changes, and old 5th metacarpal fracture. No other bony, articular, or soft tissue abnormalities. Wrist reported separately.
--- NOTE | 2022-01-21 11:59 | XRAY ---
Indication: Pain and limited range of motion following fall. Comparison: None 3 view right wrist demonstrates osteopenia, radial ulnar carpal degenerative chondrocalcinosis, mild 1st metacarpal multangular degenerative changes, old 5th metacarpal fracture, and mild scattered vascular calcifications. No other bony, articular, or soft tissue abnormalities.
[2022-01-21 12:05] VITALS: BP 135/87; PULSE 99
[2022-01-21 12:15] VITALS: O2SAT 97
== END 2022-01-21 12:31 | disposition home or self-care (01) ==
LOC: ED 10:32
DX: S60.221A Contusion of right hand, initial encounter (principal); S60.211A Contusion of right wrist, initial encounter; W08.XXXA Fall from other furniture, initial encounter; M25.531 Pain in right wrist; M79.641 Pain in right hand; I10 Essential (primary) hypertension; J44.9 Chronic obstructive pulmonary disease, unspecified; Z79.899 Other long term (current) drug therapy
CPT/HCPCS: 73110; 73130; 99283

== ENCOUNTER 2022-11-28 21:30 | Observation (INO) | payer MEDICARE, OTHER ==
[2022-11-28 22:13] LABS: Absolute Neutrophil Ct (ANC) 3.48 x10^3/uL (1.4-6.9); BASOPHIL % 0.4 % (0.0-0.4); Basophil (Absolute #) 0.03 x10^3/uL (0-0.4); Eosinophil % 3.9 % (0.00-5.0); Eosinophil (Absolute #) 0.29 x10^3/uL (0-0.5); Hemoglobin 8.5 g/dL (12.0-16.0); IMMATURE GRAN # 0.02 x10^3u/L (0.00-0.03); IMMATURE GRAN % 0.3 % (0.00-0.4); Lymphocyte (Absolute #) 2.69 x10^3/uL (1.0-4.6); Lymphocytes % 36.4 % (24.0-44.0); Mean Cell Volume 88.1 fL (78-100); Mean Corpuscular Hemoglobin 26.7 pg (26-32); Mean Corpuscular Hgb Concent. 30.4 g/dL (32-36); Mean Platelet Volume 9.1 fL (7.5-11.0); Monocyte (Absolute #) 0.89 x10^3/uL (0.0-1.3); Platelet Count 255 x10^3/uL (150-450); Red Blood Count 3.18 x10^6/uL (4.1-5.4); Red Cell Distribution Width 15.1 % (11.5-14.0); White Blood Count 7.4 x10^3/uL (4.0-10.5)
[2022-11-28 22:29] LABS: ALBUMIN 3.9 g/dL (3.5-5.0); ANION GAP 13.5 MEQ/L (5-15); BILIRUBIN,TOTAL 0.3 mg/dL (0.2-1.3); Calcium 8.8 mg/dL (8.4-10.2); Creatinine 1 1.3 mg/dL (0.52-1.04); EST GLOMERULAR FILTRATION RATE 41.1 ML/MIN; Potassium 3.8 mmol/L (3.5-5.1); Total Protein 6.8 g/dL (6.3-8.2)
--- NOTE | 2022-11-28 22:53 | ERPHSYRPT ---
- History of Present Illness Time Seen by Provider: 11/28/22 23:10 Historian: patient Exam Limitations: no limitations Patient Subjective Stated Complaint: pt states "My chest has been hurting off and on for a while. Longer than a couple months." Triage Nursing Assessment: Pt assisted to bed with assist of 1 from wheelchair, pt alert and oriented x3, pt c/o L sided chest pain that radiates to L shoulder, neck and L sided of Jaw that started about an hr prior to arrival, pt states that her chest has been hurting intermittently the past couple months but tonight was the worse he has been since it started hurting, pt has heart murmur and prolapsed heart valve, pt tearful in triage Physician History: Patient is a 86-year-old female presents to our ED for evaluation of chest pain. Patient has been experiencing intermittent chest pain for the past several months. Chest pain became severe prior to arrival. Chest pain radiates to her left jaw left shoulder. Daughter at bedside states patient recently diagnosed with a new murmur. No associated nausea or vomiting. No diaphoresis. No rash. No trauma. Symptoms are moderate in intensity. No specific worsening improving factors. Patient voices no other complaints or concerns at this time. Portions of this note were created with voice recognition technology. There may be grammatical, spelling, punctuation or sound alike errors Timing/Duration: today Activities at Onset: none Quality: aching Location: substernal Chest Pain Radiation: jaw Severity of Pain-Max: moderate Severity of Pain-Current: mild Modifying Factors: Improves With: nothing Associated Symptoms: nausea Prior Chest Pain/Cardiac Workup: no prior chest pain Nitro Today/Relief: no nitro taken today Aspirin Treatment Today: no aspirin today Allergies/Adverse Reactions: codeine Adverse Reaction (Verified 11/28/22 21:32) vomiting fentanyl Adverse Reaction (Verified 11/28/22 21:32) morphine Adverse Reaction (Verified 11/28/22 21:32) vomiting Home Medications: Allopurinol 100 mg [Zyloprim 100 mg] 100 mg PO QHS 12/18/21 [History] Potassium Chloride [Klor-Con M10] 40 meq PO DAILY 12/18/21 [History] Gabapentin [Neurontin 100 MG] 100 mg PO BID 01/01/22 [History] Amlodipine Besylate 5 mg [Norvasc 5 mg] 5 mg PO DAILY 11/28/22 [History] Mirtazapine 30 mg [Remeron 30 mg] 30 mg PO DAILY 11/28/22 [History] Omeprazole 40 mg PO DAILY 11/28/22 [History] Tramadol HCl 50 mg [Ultram 50 mg] 50 mg PO BID PRN 11/28/22 [History] Hx Tetanus, Diphtheria Vaccination/Date Given: Yes Hx Influenza Vaccination/Date Given: Yes Hx Pneumococcal Vaccination/Date Given: Yes Immunizations Up to Date: No Travel Risk - International Travel Have you traveled outside of the country in past 3 weeks: No - Coronavirus Screening Are you exhibiting any of the following symptoms?: No Close contact with a COVID-19 positive Pt in past 14-21 Days: No - Vaccine Status Have you recieved a Covid-19 vaccination: Yes Superintendent Marine: Moderna - Vaccination Dates Date of 2cond Vaccination (if applicable): 2020 - Review of Systems Constitutional: No Symptoms, No Fever, No Chills Eyes: No Symptoms Ears, Nose, & Throat: No Symptoms Respiratory: No Symptoms, No Cough, No Dyspnea Cardiac: No Symptoms, No Chest Pain, No Edema, No Syncope Abdominal/Gastrointestinal: No Symptoms, No Abdominal Pain, No Nausea, No Vomiting, No Diarrhea Genitourinary Symptoms: No Symptoms, No Dysuria Musculoskeletal: No Symptoms, No Back Pain, No Neck Pain Skin: No Symptoms, No Rash Neurological: No Symptoms, No Dizziness, No Focal Weakness, No Sensory Changes Psychological: No Symptoms Endocrine: No Symptoms Hematologic/Lymphatic: No Symptoms Immunological/Allergic: No Symptoms All Other Systems: Reviewed and Negative - Past Medical History Pertinent Past Medical History: Yes Neurological History: Stroke ENT History: No Pertinent History Cardiac History: Arrhythmia, Hypertension Respiratory History: CHF, COPD, Pneumonia, Pulmonary Embolism Endocrine Medical History: No Pertinent History Musculoskeletal History: No Pertinent History, Osteoarthritis GI Medical History: GERD History: No Pertinent History Psycho-Social History: Depression Female Reproductive Disorders: No Pertinent History Other Medical History: 'SPOT ON LT LUNG',. prolapse heart valve. 5 BROK[address]ES IN [place]. esophageal hernia - Past Surgical History Past Surgical History: Yes Neuro Surgical History: No Pertinent History Cardiac: Cardiac Catheterization Respiratory: No Pertinent History Gastrointestinal: Appendectomy, Cholecystectomy Genitourinary: No Pertinent History Musculoskeletal: No Pertinent History Female Surgical History: Hysterectomy - Social History Smoking Status: Never smoker Exposure to second hand smoke: No Drug Use: none Patient Lives Alone: No Significant Family History: heart disease, hypertension - Nursing Vital Signs Nursing Vital Signs: Initial Vital Signs Temperature 98.6 F 11/28/22 21:31 Pulse Rate 93 H 11/28/22 21:31 Respiratory Rate 17 11/28/22 21:31 Blood Pressure 179/108 11/28/22 21:31 O2 Sat by Pulse Oximetry 96 11/28/22 21:31 Pain Scale Pain Intensity 8 - Physical Exam General Appearance: no apparent distress, alert Eye Exam: PERRL/EOMI, eyes nml inspection Ears, Nose, Throat Exam: normal ENT inspection, moist mucous membranes Neck Exam: normal inspection, non-tender, supple, full range of motion Respiratory Exam: normal breath sounds, lungs clear, airway intact, No respiratory distress Cardiovascular Exam: regular rate/rhythm, normal heart sounds, normal peripheral pulses, murmur Gastrointestinal/Abdomen Exam: soft, No tenderness, No mass Back Exam: normal inspection, No CVA tenderness, No vertebral tenderness Extremity Exam: normal inspection, normal range of motion Neurologic Exam: alert, oriented x 3, cooperative, normal mood/affect, sensation nml, No motor deficits Skin Exam: normal color, warm, dry SpO2 Interpretation: normal SpO2: 100 O2 Delivery: Room Air - Course Nursing assessment & vital signs reviewed: Yes - Radiology Exams Chest X-ray Interpretation: Interpreted by me (Tortuous aorta. No acute findings.) Ordered Tests: Active Orders 24 hr Category Date Time Status Super[employer] STAT Care 11/28/22 21:50 Active EKG-ER Only STAT Care 11/28/22 21:50 Active Pulse Oximetry (ED) STAT Care 11/28/22 21:50 Active CHEST 1 VIEW (PORTABLE) Stat Exams 11/28/22 22:00 Taken CBC W DIFF Stat Lab 11/28/22 22:00 Completed CMP Stat Lab 11/28/22 22:00 Completed D-DIMER QUANTITATIVE Stat Lab 11/28/22 21:50 Received TROPONIN Q4H Lab 11/28/22 22:00 Completed TROPONIN Q4H Lab 11/29/22 02:00 Ordered TROPONIN Q4H Lab 11/29/22 06:00 Ordered Transfer Order Routine Transfer 11/28/22 Ordered Medication Summary Discontinued Medications Generic Name Dose Route Start Last Admin Trade Name Steven PRN Reason Stop Dose Admin Aspirin 324 mg 11/28/22 23:11 11/28/22 23:19 Aspirin 81 Mg Tab.Chew PO 11/28/22 23:12 324 mg STAT ONE Administration Lab/Rad Data: Laboratory Result Diagrams 11/28/22 22:00 11/28/22 22:00 Laboratory Results 11/28/22 11/28/22 11/28/22 Range/Units 23:05 22:00 22:00 WBC (4.0-10.5) x10^3/uL RBC (4.1-5.4) x10^6/uL Hgb (12.0-16.0) g/dL Hct (35-47) % MCV (78-100) fL MCH (26-32) pg MCHC (32-36) g/dL RDW (11.5-14.0) % Plt Count (150-450) x10^3/uL MPV (7.5-11.0) fL Gran % (36.0-66.0) % Immature Gran % (Auto) (0.00-0.4) % Nucleat RBC Rel Count (0.00-0.1) % Eos # (Auto) (0-0.5) x10^3/uL Immature Gran # (Auto) (0.00-0.03) x10^3u/L Absolute Lymphs (auto) (1.0-4.6) x10^3/uL Absolute Monos (auto) (0.0-1.3) x10^3/uL Absolute Nucleated RBC (0.00-0.01) x10^3u/L Lymphocytes % (24.0-44.0) % Monocytes % (0.0-12.0) % Eosinophils % (0.00-5.0) % Basophils % (0.0-0.4) % Absolute Granulocytes (1.4-6.9) x10^3/uL Basophils # (0-0.4) x10^3/uL Sodium 139 (137-145) mmol/L Potassium 3.8 (3.5-5.1) mmol/L Chloride 104 (98-107) mmol/L Carbon Dioxide 25 (22-30) mmol/L Anion Gap 13.5 (5-15) MEQ/L BUN 21 H (7-17) mg/dL Creatinine 1.30 H (0.52-1.04) mg/dL Estimated GFR 41.1 ML/MIN Glucose 90 (74-106) mg/dL Calcium 8.8 (8.4-10.2) mg/dL Total Bilirubin 0.30 (0.2-1.3) mg/dL AST 31 (14-36) U/L ALT 17 (0-35) U/L Alkaline Phosphatase 79 (38-126) U/L Troponin I 0.014 (0.000-0.034) ng/mL Serum Total Protein 6.8 (6.3-8.2) g/dL Albumin 3.9 (3.5-5.0) g/dL Influenza Type A Ag NEGATIVE (NEGATIVE) Influenza Type B Ag NEGATIVE (NEGATIVE) RSV (PCR) NEGATIVE (NEGATIVE) SARS-CoV-2 (PCR) NEGATIVE (NEGATIVE) 11/28/22 Range/Units 22:00 WBC 7.4 (4.0-10.5) x10^3/uL RBC 3.18 L (4.1-5.4) x10^6/uL Hgb 8.5 L (12.0-16.0) g/dL Hct 28.0 L (35-47) % MCV 88.1 (78-100) fL MCH 26.7 (26-32) pg MCHC 30.4 L (32-36) g/dL RDW 15.1 H (11.5-14.0) % Plt Count 255 (150-450) x10^3/uL MPV 9.1 (7.5-11.0) fL Gran % 47.0 (36.0-66.0) % Immature Gran % (Auto) 0.3 (0.00-0.4) % Nucleat RBC Rel Count 0.0 (0.00-0.1) % Eos # (Auto) 0.29 (0-0.5) x10^3/uL Immature Gran # (Auto) 0.02 (0.00-0.03) x10^3u/L Absolute Lymphs (auto) 2.69 (1.0-4.6) x10^3/uL Absolute Monos (auto) 0.89 (0.0-1.3) x10^3/uL Absolute Nucleated RBC 0.00 (0.00-0.01) x10^3u/L Lymphocytes % 36.4 (24.0-44.0) % Monocytes % 12.0 (0.0-12.0) % Eosinophils % 3.9 (0.00-5.0) % Basophils % 0.4 (0.0-0.4) % Absolute Granulocytes 3.48 (1.4-6.9) x10^3/uL Basophils # 0.03 (0-0.4) x10^3/uL Sodium (137-145) mmol/L Potassium (3.5-5.1) mmol/L Chloride (98-107) mmol/L Carbon Dioxide (22-30) mmol/L Anion Gap (5-15) MEQ/L BUN (7-17) mg/dL Creatinine (0.52-1.04) mg/dL Estimated GFR ML/MIN Glucose (74-106) mg/dL Calcium (8.4-10.2) mg/dL Total Bilirubin (0.2-1.3) mg/dL AST (14-36) U/L ALT (0-35) U/L Alkaline Phosphatase (38-126) U/L Troponin I (0.000-0.034) ng/mL Serum Total Protein (6.3-8.2) g/dL Albumin (3.5-5.0) g/dL Influenza Type A Ag (NEGATIVE) Influenza Type B Ag (NEGATIVE) RSV (PCR) (NEGATIVE) SARS-CoV-2 (PCR) (NEGATIVE) - Progress Progress: improved Air Movement: good Progress Note: Age gender, PMH/PQ , (co-morbidities that complicate presentation) , med class, PSH, (smoker) method of arrival, CC (acute, chronic or acute on chronic), State COPA level and why or if critical. vitals, Significant ROS/PE findings, working diagnoses, Complexity of problem addressed is moderate. New diagnosis with uncertain prognosis Complexity of data reviewed and analyzed is moderate. Case discussed with hospitalist accepts admission to observation. Test ordered. Test reviewed. Patient's daughter served as independent historian Risk of complication and or risk morbidity/mortality patient management is high. Patient will be admitted for further evaluation and treatment of acute coronary syndrome Plan of care discussed with patient. She agrees to admission [facility] for further evaluation and treatment. 11/28/22 23:51 Blood Culture(s) Obtained: No Antibiotics given: No Counseled pt/family regarding: lab results, diagnosis, rad results - Departure Departure Disposition: Observation Clinical Impression: ACS (acute coronary syndrome), Chest pain, Normocytic anemia, Murmur Condition: Stable Critical Care Time: No Referrals: RACHEL MARTINEZ MD [Primary Care Provider] - Follow up/PCP as directed
[2022-11-28] MEDS ORDERED: BABY ASPIRIN 81 MG CHEW PO ONE (23:11)
[2022-11-28 23:44] LABS: INFLUENZA A NEGATIVE (NEGATIVE); INFLUENZA B NEGATIVE (NEGATIVE); RESPIRATORY SYNCTIAL VIRUS NEGATIVE (NEGATIVE); SARS-CoV-2 Xpert Express NEGATIVE (NEGATIVE)
[2022-11-29] MEDS ORDERED: ENOXAPARIN SODIUM SQ ONE ×2 (00:35→00:37)
[2022-11-29] MEDS ORDERED: Senokot-S Tablet PO PRN (03:14)
[2022-11-29] MEDS ORDERED: MAALOX ES 30 ML UNIT DOSE PO PRN (03:14)
[2022-11-29] MEDS ORDERED: TYLENOL 325 MG PO PRN (03:14)
[2022-11-29] MEDS ORDERED: MILK OF MAGNESIA 30 ML PO PRN (03:14)
[2022-11-29 03:34] LABS: ABO TYPING A; Antibody Screen NEGATIVE (NEGATIVE); RH TYPING POSITIVE
--- NOTE | 2022-11-29 05:22 | PCM.HP ---
History of Present Illness - Chief Complaint Chief Complaint: ACS, Chest pain Date: 11/29/22 History of Present Illness: Ms. Dickerson is an 86 year-old female with HTN and anemia who presents with chest pain. She admits to two months of intermittent chest pain with no precipitiating factors - "hard pain" (not able to say if pressure/sharp/dull); left chest with radiation to left arm; no association with syncope, preysncope, nausea, vomting, shortness of breath; alleviated with some rest. Today, the pain lasted 45 minutes, and NSAIDs do not help. Upon arrival to [facility], her laboratory data revealed an anemia, cardiac enzymes were negative, EKG was normal, and chest imaging was unremarkable. Interestingly, she has recently been diagnosed with a "heart murmur," and on auscultation, she has a 4/6 murmur herd loudest in the left, posterior chest. On my examination, she is chest pain free denyng any current fevers, chills, nausea, vomiting, diarrhea, syncope, presyncope, visual changes, orthopnea, PND, odynophagia, dysphagia, chest pain, shortness of breath, belly pain, dysuria, hematuria, melena, hematochezia, or neurological changes. All other systems were reviewed and were negative. - Review of Systems Constitutional: Other (As per HPI) Medications & Allergies Home Medications: Home Medication List Allopurinol 100 mg [Zyloprim 100 mg] 100 mg PO QHS 12/18/21 [History Confirmed 11/29/22] Potassium Chloride [Klor-Con M10] 20 meq PO BID 12/18/21 [History Confirmed 11/29/22] Gabapentin [Neurontin 100 MG] 100 mg PO BID 01/01/22 [History Confirmed 11/29/22] Amlodipine Besylate 5 mg [Norvasc 5 mg] 5 mg PO DAILY 11/28/22 [History Confirmed 11/29/22] Mirtazapine 30 mg [Remeron 30 mg] 30 mg PO DAILY 11/28/22 [History Confirmed 11/29/22] Omeprazole 40 mg PO DAILY 11/28/22 [History Confirmed 11/29/22] Tramadol HCl 50 mg [Ultram 50 mg] 50 mg PO BID PRN PRN 11/28/22 [History Confirmed 11/29/22] Allergies/Adverse Reactions: Allergies Allergy/AdvReac Type Severity Reaction Status Date / Time codeine AdvReac Verified 11/28/22 21:32 fentanyl AdvReac Verified 11/28/22 21:32 morphine AdvReac Verified 11/28/22 21:32 - Past Medical History Past Medical History: Yes Neurological History: Stroke ENT History: No Pertinent History Cardiac History: Arrhythmia, Hypertension Respiratory History: CHF, COPD, Pneumonia, Pulmonary Embolism Endocrine Medical History: No Pertinent History Musculoskelatal History: No Pertinent History, Arthritis GI Medical History: No Pertinent History History: No Pertinent History Pyscho-Social History: No Pertinent History Reproductive Disorders: No Pertinent History Comment: 'SPOT ON LT LUNG',. prolapse heart valve. [address] IN [place]. esophageal hernia - Female History Are you now?: No - Past Surgical History Past Surgical History: Yes Neuro Surgical History: No Pertinent History Cardiac History: Cardiac Catheterization Respiratory Surgery: No Pertinent History GI Surgical History: Appendectomy, Cholecystectomy Genitourinary Surgical Hx: No Pertinent History Musculskeletal Surgical Hx: No Pertinent History Female Surgical History: Hysterectomy - Social History Smoking Status: Never smoker Exposure to second hand smoke: No Alcohol: None Drug Use: none Significant Family History: heart disease, hypertension - Physical Exam Vital Signs: Vital Signs - 24 hr Temp Pulse Pulse Resp BP Pulse Ox 11/29/22 03:14 98.7 F 94 H 24 163/100 96 11/29/22 00:00 85 21 163/109 93 L 11/28/22 23:54 100 11/28/22 23:08 86 22 171/110 100 11/28/22 22:01 100 11/28/22 21:33 90 11/28/22 21:31 98.6 F 93 H 17 179/108 96 General Appearance: no apparent distress Neurologic Exam: alert, oriented x 3 Eye Exam: PERRL/EOMI Ears, Nose, Throat Exam: normal ENT inspection Neck Exam: normal inspection Respiratory Exam: normal breath sounds Cardiovascular Exam: regular rate/rhythm, murmur Gastrointestinal/Abdomen Exam: soft, normal bowel sounds Pelvic Exam: not done Rectal Exam: deferred Back Exam: normal inspection Extremity Exam: normal inspection Skin Exam: normal color Results - Labs Lab/Micro Results: Lab Results-Last 24 Hours 11/28/22 11/28/22 11/28/22 Range/Units 21:50 22:00 22:00 WBC 7.4 (4.0-10.5) x10^3/uL RBC 3.18 L (4.1-5.4) x10^6/uL Hgb 8.5 L (12.0-16.0) g/dL Hct 28.0 L (35-47) % MCV 88.1 (78-100) fL MCH 26.7 (26-32) pg MCHC 30.4 L (32-36) g/dL RDW 15.1 H (11.5-14.0) % Plt Count 255 (150-450) x10^3/uL MPV 9.1 (7.5-11.0) fL Gran % 47.0 (36.0-66.0) % Immature Gran % (Auto) 0.3 (0.00-0.4) % Nucleat RBC Rel Count 0.0 (0.00-0.1) % Eos # (Auto) 0.29 (0-0.5) x10^3/uL Immature Gran # (Auto) 0.02 (0.00-0.03) x10^3u/L Absolute Lymphs (auto) 2.69 (1.0-4.6) x10^3/uL Absolute Monos (auto) 0.89 (0.0-1.3) x10^3/uL Absolute Nucleated RBC 0.00 (0.00-0.01) x10^3u/L Lymphocytes % 36.4 (24.0-44.0) % Monocytes % 12.0 (0.0-12.0) % Eosinophils % 3.9 (0.00-5.0) % Basophils % 0.4 (0.0-0.4) % Absolute Granulocytes 3.48 (1.4-6.9) x10^3/uL Basophils # 0.03 (0-0.4) x10^3/uL D-Dimer 3.05 H* (0.0-0.50) mg/L Sodium 139 (137-145) mmol/L Potassium 3.8 (3.5-5.1) mmol/L Chloride 104 (98-107) mmol/L Carbon Dioxide 25 (22-30) mmol/L Anion Gap 13.5 (5-15) MEQ/L BUN 21 H (7-17) mg/dL Creatinine 1.30 H (0.52-1.04) mg/dL Estimated GFR 41.1 ML/MIN Glucose 90 (74-106) mg/dL Calcium 8.8 (8.4-10.2) mg/dL Total Bilirubin 0.30 (0.2-1.3) mg/dL AST 31 (14-36) U/L ALT 17 (0-35) U/L Alkaline Phosphatase 79 (38-126) U/L Troponin I (0.000-0.034) ng/mL Serum Total Protein 6.8 (6.3-8.2) g/dL Albumin 3.9 (3.5-5.0) g/dL Influenza Type A Ag (NEGATIVE) Influenza Type B Ag (NEGATIVE) RSV (PCR) (NEGATIVE) SARS-CoV-2 (PCR) (NEGATIVE) ABO Group Rh Factor Antibody Screen (NEGATIVE) 11/28/22 11/28/22 11/28/22 Range/Units 22:00 23:05 23:48 WBC (4.0-10.5) x10^3/uL RBC (4.1-5.4) x10^6/uL Hgb (12.0-16.0) g/dL Hct (35-47) % MCV (78-100) fL MCH (26-32) pg MCHC (32-36) g/dL RDW (11.5-14.0) % Plt Count (150-450) x10^3/uL MPV (7.5-11.0) fL Gran % (36.0-66.0) % Immature Gran % (Auto) (0.00-0.4) % Nucleat RBC Rel Count (0.00-0.1) % Eos # (Auto) (0-0.5) x10^3/uL Immature Gran # (Auto) (0.00-0.03) x10^3u/L Absolute Lymphs (auto) (1.0-4.6) x10^3/uL Absolute Monos (auto) (0.0-1.3) x10^3/uL Absolute Nucleated RBC (0.00-0.01) x10^3u/L Lymphocytes % (24.0-44.0) % Monocytes % (0.0-12.0) % Eosinophils % (0.00-5.0) % Basophils % (0.0-0.4) % Absolute Granulocytes (1.4-6.9) x10^3/uL Basophils # (0-0.4) x10^3/uL D-Dimer (0.0-0.50) mg/L Sodium (137-145) mmol/L Potassium (3.5-5.1) mmol/L Chloride (98-107) mmol/L Carbon Dioxide (22-30) mmol/L Anion Gap (5-15) MEQ/L BUN (7-17) mg/dL Creatinine (0.52-1.04) mg/dL Estimated GFR ML/MIN Glucose (74-106) mg/dL Calcium (8.4-10.2) mg/dL Total Bilirubin (0.2-1.3) mg/dL AST (14-36) U/L ALT (0-35) U/L Alkaline Phosphatase (38-126) U/L Troponin I 0.014 (0.000-0.034) ng/mL Serum Total Protein (6.3-8.2) g/dL Albumin (3.5-5.0) g/dL Influenza Type A Ag NEGATIVE (NEGATIVE) Influenza Type B Ag NEGATIVE (NEGATIVE) RSV (PCR) NEGATIVE (NEGATIVE) SARS-CoV-2 (PCR) NEGATIVE (NEGATIVE) ABO Group A Rh Factor POSITIVE Antibody Screen NEGATIVE (NEGATIVE) 11/29/22 Range/Units 02:20 WBC (4.0-10.5) x10^3/uL RBC (4.1-5.4) x10^6/uL Hgb (12.0-16.0) g/dL Hct (35-47) % MCV (78-100) fL MCH (26-32) pg MCHC (32-36) g/dL RDW (11.5-14.0) % Plt Count (150-450) x10^3/uL MPV (7.5-11.0) fL Gran % (36.0-66.0) % Immature Gran % (Auto) (0.00-0.4) % Nucleat RBC Rel Count (0.00-0.1) % Eos # (Auto) (0-0.5) x10^3/uL Immature Gran # (Auto) (0.00-0.03) x10^3u/L Absolute Lymphs (auto) (1.0-4.6) x10^3/uL Absolute Monos (auto) (0.0-1.3) x10^3/uL Absolute Nucleated RBC (0.00-0.01) x10^3u/L Lymphocytes % (24.0-44.0) % Monocytes % (0.0-12.0) % Eosinophils % (0.00-5.0) % Basophils % (0.0-0.4) % Absolute Granulocytes (1.4-6.9) x10^3/uL Basophils # (0-0.4) x10^3/uL D-Dimer (0.0-0.50) mg/L Sodium (137-145) mmol/L Potassium (3.5-5.1) mmol/L Chloride (98-107) mmol/L Carbon Dioxide (22-30) mmol/L Anion Gap (5-15) MEQ/L BUN (7-17) mg/dL Creatinine (0.52-1.04) mg/dL Estimated GFR ML/MIN Glucose (74-106) mg/dL Calcium (8.4-10.2) mg/dL Total Bilirubin (0.2-1.3) mg/dL AST (14-36) U/L ALT (0-35) U/L Alkaline Phosphatase (38-126) U/L Troponin I 0.015 (0.000-0.034) ng/mL Serum Total Protein (6.3-8.2) g/dL Albumin (3.5-5.0) g/dL Influenza Type A Ag (NEGATIVE) Influenza Type B Ag (NEGATIVE) RSV (PCR) (NEGATIVE) SARS-CoV-2 (PCR) (NEGATIVE) ABO Group Rh Factor Antibody Screen (NEGATIVE) - Radiology Impressions Radiology Exams & Impressions: Radiology Procedures Category Date Time Status CHEST 1 VIEW (PORTABLE) Stat Exams 11/28/22 22:00 Taken - Other Procedures and Tests Respiratory Therapy 11/29/22 05:00 EKG ROUTINE 11/30/22 05:00 EKG ROUTINE 12/01/22 05:00 EKG ROUTINE Assessment/Plan (1) Chest pain Current Visit: Yes Status: Acute Assessment & Plan: ASSESSMENT 1. Chest Pain 2. Heart Murmur 3. Hypertension 4. Anemia PLAN I believe her intermittent, 2 month long chest pain is related to a mitral valve prolapse; she needs a cardiac evaluation including a LHC and Echo. Currently she is stable, and we will continue with monitoring until the AM. The entirety of this encounter was done via telemedicine Albaro Mars MD Pulmonary and Critical Care Medicine Code(s): R07.9 - CHEST PAIN, UNSPECIFIED Telemedicine Encounter - Telemedicine Encounter Telemedicine Encounter: The entirety of this encounter was performed via Telemedicine"
[2022-11-29 05:54] LABS: Risk Ratio 2.2
[2022-11-29 08:38] LABS: ALBUMIN 3.8 g/dL (3.5-5.0); ANION GAP 13.4 MEQ/L (5-15); BILIRUBIN,TOTAL 0.5 mg/dL (0.2-1.3); Calcium 8.9 mg/dL (8.4-10.2); Creatinine 1 1.14 mg/dL (0.52-1.04); EST GLOMERULAR FILTRATION RATE 47.8 ML/MIN; Potassium 3.5 mmol/L (3.5-5.1); Total Protein 6.7 g/dL (6.3-8.2)
[2022-11-29 08:39] LABS: Absolute Neutrophil Ct (ANC) 2.79 x10^3/uL (1.4-6.9); BASOPHIL % 0.6 % (0.0-0.4); Basophil (Absolute #) 0.04 x10^3/uL (0-0.4); Eosinophil % 4.8 % (0.00-5.0); Eosinophil (Absolute #) 0.32 x10^3/uL (0-0.5); Hematocrit 28.6 % (35-47); Hemoglobin 8.6 g/dL (12.0-16.0); IMMATURE GRAN # 0.01 x10^3u/L (0.00-0.03); IMMATURE GRAN % 0.2 % (0.00-0.4); Lymphocyte (Absolute #) 2.76 x10^3/uL (1.0-4.6); Lymphocytes % 41.8 % (24.0-44.0); Mean Cell Volume 88.3 fL (78-100); Mean Corpuscular Hemoglobin 26.5 pg (26-32); Mean Corpuscular Hgb Concent. 30.1 g/dL (32-36); Mean Platelet Volume 8.9 fL (7.5-11.0); Monocyte (Absolute #) 0.68 x10^3/uL (0.0-1.3); Monocytes % 10.3 % (0.0-12.0); Neutrophil % 42.3 % (36.0-66.0); Platelet Count 246 x10^3/uL (150-450); Red Blood Count 3.24 x10^6/uL (4.1-5.4); Red Cell Distribution Width 15.1 % (11.5-14.0); White Blood Count 6.6 x10^3/uL (4.0-10.5)
--- NOTE | 2022-11-29 09:12 | XRAY ---
Indication: Chest pain. Comparison: February 05, 2017 Portable chest again demonstrates chronic lung markings without focal infiltrate, consolidation, or large effusion. Heart remains enlarged with interval enlarging large hiatal hernia. Bony thorax intact again with osteopenia, degenerative changes, and scoliosis. Impression: Nonacute chest with chronic features.
--- NOTE | 2022-11-29 11:09 | XRAY ---
Indication: Left chest pain. Short of breath. Increased d-dimer. History pulmonary embolus. Comparison: None Patient received 5.4 mCi technetium 99 MAA for the perfusion portion of the exam. Patient inhaled 36.3 mCi aerosolized technetium 99 DTPA for the ventilation portion of the exam. Multiple planar images obtained. Perfusion images demonstrate small subsegmental perfusion defect in the posterior right upper lobe. No other focal perfusion defects. Ventilation images demonstrates homogeneous radiopharmaceutical activity bilaterally. Impression: Small subsegmental perfusion defect right upper lobe. PIOPED criteria for pulmonary embolus is low probability.
[2022-11-29 12:33] VITALS: BP 152/90; PULSE 88; O2SAT 97
--- NOTE | 2022-12-02 12:50 | PCM.DS ---
Discharge Summary Date of Admission: 11/29/22 01:35 Admitting Physician: LEANDER RUELAS MD Primary Care Provider: RACHEL MARTINEZ Allergies Allergies codeine Adverse Reaction (Verified 11/28/22 21:32) vomiting fentanyl Adverse Reaction (Verified 11/28/22 21:32) morphine Adverse Reaction (Verified 11/28/22 21:32) vomiting Hospital Summary - Hospital Course Hospital Course: Chief Complaint Diagnosis ACS, Chest pain Admission Date Date 11/29/22 Allergies Allergy/AdvReac Type Severity Reaction Status Date / Time codeine AdvReac Verified 11/28/22 21:32 fentanyl AdvReac Verified 11/28/22 21:32 morphine AdvReac Verified 11/28/22 21:32 Home Medications Medication Instructions Recorded Confirmed Last Taken Type Amlodipine Besylate 5 mg 5 mg PO DAILY 11/28/22 11/29/22 11/28/22 09:00 History [Norvasc 5 mg] Mirtazapine 30 mg [Remeron 30 30 mg PO DAILY 11/28/22 11/29/22 11/28/22 09:00 History mg] Omeprazole 40 mg PO DAILY 11/28/22 11/29/22 11/28/22 09:00 History Tramadol HCl 50 mg [Ultram 50 50 mg PO BID PRN PRN 11/28/22 11/29/22 Unknown History mg] Current Medications Discontinued Medications Generic Name Dose Route Start Last Admin Trade Name Freq PRN Reason Stop Dose Admin Acetaminophen 650 mg 11/29/22 03:14 Acetaminophen 325 Mg Tablet PO 12/29/22 03:13 Q4H PRN PRN PAIN AND/OR FEVER Al Hydrox/Mg Hydrox/Simethicone 30 ml 11/29/22 03:14 Mag Hydrox/Al Hydrox/Simeth 30 Ml Udcup PO 12/29/22 03:13 Q4H PRN PRN INDIGESTION Aspirin 324 mg 11/28/22 23:11 11/28/22 23:19 Aspirin 81 Mg Tab.Chew PO 11/28/22 23:12 324 mg STAT ONE Administration Enoxaparin Sodium 40 mg 11/29/22 00:35 11/29/22 00:38 Enoxaparin Sodium 40 Mg/0.4 Ml Syringe SQ 11/29/22 00:36 40 mg STAT ONE Administration Enoxaparin Sodium Confirm 11/29/22 00:37 Enoxaparin Sodium 80 Mg/0.8 Ml Syringe Administered 11/29/22 00:38 Dose 80 mg SQ .STK-MED ONE Magnesium Hydroxide 30 - 60 ml 11/29/22 03:14 Magnesium Hydroxide 30 Ml Udcup PO 12/29/22 03:13 QDP PRN CONSTIPATION Senna/Docusate Sodium 2 udtab 11/29/22 03:14 Senna/Docusate Sodium 1 Udtab Tablet PO 12/29/22 03:13 BID PRN PRN CONSTIPATION - Vitals & Intake/Output Vital Signs: Vital Signs Temperature 98.2 F 11/29/22 12:00 Pulse Rate 88 11/29/22 12:00 Respiratory Rate 16 11/29/22 12:00 Blood Pressure 152/90 11/29/22 12:00 O2 Sat by Pulse Oximetry 97 11/29/22 12:00 - Lab Result Diagrams: 11/29/22 08:19 11/29/22 08:19 - Procedures and Test Procedures and Tests throughout Hospitalization: Therapy Orders & Screens 11/29/22 03:14 EKG Q8HX2,QAMX3,PRN Comment: 11/29/22 05:00 EKG ROUTINE Comment: Diagnosis: ACS, Chest pain 11/30/22 05:00 EKG ROUTINE Comment: Diagnosis: ACS, Chest pain 12/01/22 05:00 EKG ROUTINE Comment: Diagnosis: ACS, Chest pain Discharge Exam General Appearance: no apparent distress, alert Neurologic Exam: alert, oriented x 3, cooperative, normal mood/affect, nml ce rebellar function, sensation nml, No motor deficits Eye Exam: PERRL, EOMI, eyes nml inspection Ears, Nose, Throat Exam: normal ENT inspection, pharynx normal, moist mucous membranes Neck Exam: normal inspection, non-tender, supple, full range of motion Respiratory Exam: normal breath sounds, lungs clear, No respiratory distress Cardiovascular Exam: regular rate/rhythm, normal heart sounds Gastrointestinal/Abdomen Exam: soft, No tenderness, No mass Pelvic Exam: deferred Rectal Exam: deferred Back Exam: normal inspection, normal range of motion, No CVA tenderness, No ofe tebral tenderness Extremity Exam: normal inspection, normal range of motion Skin Exam: normal color, warm, dry Final Diagnosis/Problem List - Final Discharge Diagnosis/Problem (1) ACS (acute coronary syndrome) Status: Acute Priority: High Assessment & Plan: Chief Complaint Diagnosis ACS, Chest pain Admission Date Date 11/29/22 Allergies Allergy/AdvReac Type Severity Reaction Status Date / Time codeine AdvReac Verified 11/28/22 21:32 fentanyl AdvReac Verified 11/28/22 21:32 morphine AdvReac Verified 11/28/22 21:32 Home Medications Medication Instructions Recorded Confirmed Last Taken Type Amlodipine Besylate 5 mg 5 mg PO DAILY 11/28/22 11/29/22 11/28/22 09:00 History [Norvasc 5 mg] Mirtazapine 30 mg [Remeron 30 30 mg PO DAILY 11/28/22 11/29/22 11/28/22 09:00 History mg] Omeprazole 40 mg PO DAILY 11/28/22 11/29/22 11/28/22 09:00 History Tramadol HCl 50 mg [Ultram 50 50 mg PO BID PRN PRN 11/28/22 11/29/22 Unknown History mg] Current Medications Discontinued Medications Generic Name Dose Route Start Last Admin Trade Name Freq PRN Reason Stop Dose Admin Acetaminophen 650 mg 11/29/22 03:14 Acetaminophen 325 Mg Tablet PO 12/29/22 03:13 Q4H PRN PRN PAIN AND/OR FEVER Al Hydrox/Mg Hydrox/Simethicone 30 ml 11/29/22 03:14 Mag Hydrox/Al Hydrox/Simeth 30 Ml Udcup PO 12/29/22 03:13 Q4H PRN PRN INDIGESTION Aspirin 324 mg 11/28/22 23:11 11/28/22 23:19 Aspirin 81 Mg Tab.Chew PO 11/28/22 23:12 324 mg STAT ONE Administration Enoxaparin Sodium 40 mg 11/29/22 00:35 11/29/22 00:38 Enoxaparin Sodium 40 Mg/0.4 Ml Syringe SQ 11/29/22 00:36 40 mg STAT ONE Administration Enoxaparin Sodium Confirm 11/29/22 00:37 Enoxaparin Sodium 80 Mg/0.8 Ml Syringe Administered 11/29/22 00:38 Dose 80 mg SQ .STK-MED ONE Magnesium Hydroxide 30 - 60 ml 11/29/22 03:14 Magnesium Hydroxide 30 Ml Udcup PO 12/29/22 03:13 QDP PRN CONSTIPATION Senna/Docusate Sodium 2 udtab 11/29/22 03:14 Senna/Docusate Sodium 1 Udtab Tablet PO 12/29/22 03:13 BID PRN PRN CONSTIPATION Code(s): I24.9 - ACUTE ISCHEMIC HEART DISEASE, UNSPECIFIED (2) Chest pain Status: Acute Code(s): R07.9 - CHEST PAIN, UNSPECIFIED (3) Hypertension Status: Chronic Code(s): I10 - ESSENTIAL (PRIMARY) HYPERTENSION - Discharge Discharge Date: 11/29/22 Disposition: Home, Self-Care Condition: Stable Prescriptions: Continue Potassium Chloride [Klor-Con M10] 20 meq PO BID Allopurinol 100 mg [Zyloprim 100 mg] 100 mg PO QHS Gabapentin [Neurontin ] 100 mg PO BID Omeprazole 40 mg PO DAILY Amlodipine Besylate 5 mg [Norvasc 5 mg] 5 mg PO DAILY Tramadol HCl 50 mg [Ultram 50 mg] 50 mg PO BID PRN PRN PRN Reason: Pain Mirtazapine 30 mg [Remeron 30 mg] 30 mg PO DAILY Instructions: Chest Pain That Is Not Caused by the Heart (DC) Follow up with: RACHEL MARTINEZ MD [Primary Care Provider] - 12/06/22 10:00 am
== END 2022-11-29 12:50 | disposition home or self-care (01) ==
LOC: ED 21:30 → MED SURG 11-29 01:35
PROVIDERS: ADMIT Internal Medicine Critical Care Medicine; ATTEND General Practice
DX: R07.9 Chest pain, unspecified (principal); R01.1 Cardiac murmur, unspecified; I11.0 Hypertensive heart disease with heart failure; I50.9 Heart failure, unspecified; D64.9 Anemia, unspecified; Z79.899 Other long term (current) drug therapy; Z20.828 Contact with and (suspected) exposure to other viral communicable diseases
CPT/HCPCS: 0241U; 36415; 71045; 78582; 80053; 80061; 83721; 84484; 85025; 85379; 86850; 86900; 86901; 93005; 93041; 94760; 96372; 99284; A9540; A9567; 93268; J1650; A9270-GY; G0378